=== PATIENT | female | born 1940 | race Caucasian/White ===

== ENCOUNTER 2017-01-04 14:24 | Observation (INO) ==
[2017-01-04 15:40] LABS: Basophils % 0.6 %; Eosinophils # 0.1 K/mcL (0.0-0.6); Hematocrit 40.6 % (35.3-44.9); Immature Granulocytes % 0.2 % (0-4); Lymphocytes # 1.3 K/mcL (0.6-4.6); Lymphocytes % 26.7 %; Mean Corpuscular Hemoglobin 28.6 pg (28.0-33.3); Mean Corpuscular Volume 89.4 fL (83.0-100.0); Monocytes # 0.4 K/mcL (0.0-1.3); Monocytes % 8.7 %; Neutrophils # 2.9 K/mcL (1.6-8.9); Platelet Count 126 K/mcL (140-400); Red Blood Count 4.54 M/mcL (3.82-4.97); Red Cell Distribution Width 12.5 % (11.5-14.5); Segmented Neutrophils % 60.8 %
--- NOTE | 2017-01-04 15:52 | Emergency Department Note ---
Disposition Clinical Impression: Exertional dyspnea Disposition: Admitted As Inpatient Condition: Fair Time of Disposition: 17:34 General Adult HPI - General Chief complaint: ED Shortness of Breath/Dyspnea Stated complaint: JAMAL Time Seen by Provider: 01/04/17 15:13 Source: patient Mode of arrival: wheelchair Limitations: no limitations Nursing Notes Reviewed: Yes Vital Signs Reviewed: Yes - History of Present Illness HPI Narrative: Patient is a 76-year-old female with a past medical history of 2 cardiac stents , pacemaker, and hypertension that presents with exertional dyspnea and orthopnea that started at 2 AM this morning. She also complains of lower extremity swelling bilaterally. She denies an fever, chills, nausea, or diaphoresis, chest pain, abdominal pain, pre-syncopal episodes or calf tenderness. 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 Pain Scale: 0 Treatments Prior to Arrival: Aspirin - Related Data Home Medications Medication Instructions Recorded Confirmed Aspirin 81 mg PO DAILY 01/04/17 01/04/17 Atorvastatin [Lipitor] 40 mg PO HS 01/04/17 01/04/17 Gabapentin [Neurontin] 600 mg PO HS 01/04/17 01/04/17 HYDROcodone/Acet 5/325 mg [[place] 1 tab PO Q6H PRN 01/04/17 01/04/17 5-325 mg] Isosorbide MONOnitrate (24 HR) 90 mg PO DAILY 01/04/17 01/04/17 [Imdur] Levothyroxine Sodium [Levoxyl] 25 mcg PO 0630 01/04/17 01/04/17 Meloxicam [Meloxicam] 7.5 mg PO BID 01/04/17 01/04/17 Metoprolol [Lopressor] 12.5 mg PO BID 01/04/17 01/04/17 Oxybutynin Chloride [Ditropan Xl] 10 mg PO DAILY 01/04/17 01/04/17 Temazepam [Restoril] 30 mg PO HS 01/04/17 01/04/17 amLODIPine [Norvasc] 5 mg PO DAILY 01/04/17 01/04/17 raNITIdine HCl [Ranitidine HCl] 150 mg PO BID 01/04/17 01/04/17 Allergies Allergy/AdvReac Type Severity Reaction Status Date / Time No Known Allergies Allergy Verified 01/04/17 19:11 All systems ED: reviewed and negative except as stated. Constitutional: Reports: weakness. Denies: fever, chills Cardiovascular: Reports: dyspnea on exertion, orthopnea. Denies: chest pain, palpitations Respiratory: Denies: cough, wheezes, hemoptysis, stridor Gastrointestinal: Denies: abdominal pain, nausea, vomiting Musculoskeletal: Denies: back pain, neck pain Neurological: Denies: headache, numbness, paresthesias, confusion, abnormal gait Past Medical History - Past Medical History Medical history: Reports: coronary artery disease, hypertension, other Psychiatric history: Reports: no psych history - Social History Smoking Status: Former smoker Smokeless Tobacco Status: No Alcohol use: Reports: none Drug use: Reports: none Physical Exam Patient is sitting up in bed smiling and pleasant. She speaks in full sentences. She is at 99% on 2 L. No acute distress however when she is laid completely flat she does exhibit signs of difficulty in breathing. - General Limitations: no limitations General appearance: alert, in no apparent distress - Head Head exam: atraumatic, normocephalic, normal inspection - Eye Eye exam: Present: normal appearance, PERRL, EOMI - ENT ENT exam: normal exam, normal oropharynx, mucous membranes moist - Neck Neck exam: Present: normal inspection, full ROM. Absent: tenderness - Chest Chest inspection: Present: normal inspection, symmetric chest wall rise. Absent : tenderness - Respiratory Respiratory exam: Present: normal lung sounds bilaterally. Absent: respiratory distress, wheezes, stridor - Cardiovascular Cardiovascular exam: Present: regular rate, normal rhythm, normal heart sounds - Abdominal Exam Abdominal exam: Present: soft, Non-Tender, normal bowel sounds - Expanded Lower Extremity Exam Lower leg exam: Present: full ROM, other (1+ pitting edema bilaterally). Absent : tenderness Neurovascular/Tendon exam: Present: normal capillary refill. Absent: pulse deficit, motor deficit, sensory deficit, extremity cold to touch, pallor Gait: not tested/not observed - Back Exam Back exam: Present: normal inspection, full ROM. Absent: tenderness - Neurological Exam Neurological exam: Present: alert, oriented X3 - Psychiatric Psychiatric exam: Present: normal affect, normal mood - Skin Skin exam: Present: warm, dry, intact, normal color Course Course Narrative: Patient is a 76-year-old female with past medical history of 2 cardiac stents and a pacemaker that presents with exertional dyspnea and orthopnea. We will order labs and imaging to rule out ACS. We will check a d-dimer due to the patient's complaint of sudden onset difficulty in breathing. The plan will be to admit the patient to the hospital for further ACS rule out. - Reevaluation(s) Reevaluation #1: Discussed with patient that due to her elevated d-dimer and no other obvious finding for shortness of breath and believe it is reasonable to do a CTA of her chest to rule out a PE. The patient agrees with the plan. Time: 16:31 Reevaluation #2: I spoke with nurse practitioner Lottie. She agrees to accept the patient to the hospital for ACS rule out. Time: 17:34 Vital Signs Temperature 97.8 F 01/04/17 14:29 Pulse Rate 65 01/04/17 14:29 Respiratory Rate 18 01/04/17 14:29 Blood Pressure 138/73 01/04/17 14:29 O2 Sat by Pulse Oximetry 99 01/04/17 14:29 Temperature 98.8 F 01/04/17 23:21 Pulse Rate 70 01/04/17 23:21 Respiratory Rate 16 01/04/17 23:21 Blood Pressure 104/59 01/04/17 23:21 O2 Sat by Pulse Oximetry 95 01/04/17 23:21 Oxygen Delivery Oxygen Delivery Room Air Medical Decision Making - Medical Records Medical records reviewed: Yes I reviewed the patient's medical records. - Lab Data Lab results reviewed: Yes I reviewed the patient's lab results. Result diagrams: 01/04/17 15:31 01/04/17 15:31 Lab Results 01/04/17 01/04/17 01/04/17 Range/Units 15:31 15:31 15:31 WBC 4.7 (4.3-11.1) K/mcL RBC 4.54 (3.82-4.97) M/mcL Hgb 13.0 (11.5-15.4) g/dL Hct 40.6 (35.3-44.9) % MCV 89.4 (83.0-100.0) fL MCH 28.6 (28.0-33.3) pg MCHC 32.0 (31.6-35.5) g/dL RDW 12.5 (11.5-14.5) % Plt Count 126 L (140-400) K/mcL MPV 9.0 L (9.4-12.4) fL Immature Gran % 0.2 (0-4) % Seg Neutrophils % 60.8 % Lymphocytes % 26.7 % Monocytes % 8.7 % Eosinophils % 3.0 % Basophils % 0.6 % Neutrophils # 2.9 (1.6-8.9) K/mcL Lymphocytes # 1.3 (0.6-4.6) K/mcL Monocytes # 0.4 (0.0-1.3) K/mcL Eosinophils # 0.1 (0.0-0.6) K/mcL Basophils # 0.0 (0.0-0.2) K/mcL D-Dimer (0-500) ng/mLFEU Sodium 140 (136-145) mEq/L Potassium 4.0 (3.5-4.5) mEq/L Chloride 106 (98-109) mEq/L Carbon Dioxide 29 (19-29) mEq/L BUN 20 (7-20) mg/dL Creatinine 0.85 (0.57-1.11) mg/dL Est GFR ( Amer) > 60 (> 60) Est GFR (Non-Af Amer) > 60 (> 60) BUN/Creatinine Ratio 24 (6-26) Glucose 86 (70-99) mg/dL Calculated Osmolality 292 (280-300) Lactic Acid 1.0 (0.5-2.2) mmol/L Calcium 9.9 (8.6-10.8) mg/dL Troponin I (0-0.03) ng/mL B-Natriuretic Peptide (0-100) pg/mL 01/04/17 01/04/17 01/04/17 Range/Units 15:31 15:31 15:31 WBC (4.3-11.1) K/mcL RBC (3.82-4.97) M/mcL Hgb (11.5-15.4) g/dL Hct (35.3-44.9) % MCV (83.0-100.0) fL MCH (28.0-33.3) pg MCHC (31.6-35.5) g/dL RDW (11.5-14.5) % Plt Count (140-400) K/mcL MPV (9.4-12.4) fL Immature Gran % (0-4) % Seg Neutrophils % % Lymphocytes % % Monocytes % % Eosinophils % % Basophils % % Neutrophils # (1.6-8.9) K/mcL Lymphocytes # (0.6-4.6) K/mcL Monocytes # (0.0-1.3) K/mcL Eosinophils # (0.0-0.6) K/mcL Basophils # (0.0-0.2) K/mcL D-Dimer 784 H (0-500) ng/mLFEU Sodium (136-145) mEq/L Potassium (3.5-4.5) mEq/L Chloride (98-109) mEq/L Carbon Dioxide (19-29) mEq/L BUN (7-20) mg/dL Creatinine (0.57-1.11) mg/dL Est GFR ( Amer) (> 60) Est GFR (Non-Af Amer) (> 60) BUN/Creatinine Ratio (6-26) Glucose (70-99) mg/dL Calculated Osmolality (280-300) Lactic Acid (0.5-2.2) mmol/L Calcium (8.6-10.8) mg/dL Troponin I 0.00 (0-0.03) ng/mL B-Natriuretic Peptide 499 H (0-100) pg/mL - Radiology Data Radiology results reviewed: Yes I reviewed the patient's radiology results. Chest X-Ray 01/04/17 14:33 IMPRESSION: Stable chest with no acute cardiopulmonary process. D/ / Pedro Quintana MD / Pedro Quintana MD Interpreting Provider: Pedro Quintana MD Chest CTA 01/04/17 16:04 IMPRESSION: No evidence of pulmonary embolism or acute pulmonary abnormality. D/ / Stanford Cabrera MD / Stanford Cabrera MD Interpreting Provider: Stanford Cabrera MD - EKG Data EKG #1 EKG attestation: Yes I reviewed and interpreted this EKG. EKG results narrative: This EKG was interpreted by me. Performed at 14:52. There is a ventricular paced rhythm. Attestation Statement - Attestation Attestation: I examined this patient and my medical decision-making was reviewed with the Resident Physician. I agree with the documented findings, disposition and treatment plan as described except to the extent set forth below. I agree with the resident's plan of care. In summary this is a female patient with concerning findings of dyspnea which are potentially cardiac in etiology. She does not a pacemaker. She is nearing the life expectancy of her pacemaker. She has exertionally mediated dyspnea as well as orthopnea. Her BNP was found to be mildly elevated. She does have some lower extremity swelling. Her d- dimer was found to be elevated. She underwent CT angiography of the chest to rule out pulmonary M was not. This shows no evidence of pulmonary embolism. Plan to admit for serial cardiac biomarkers trending as well as cardiac consultation for evaluation of both pacemaker and possible anginal equivalence exertional dyspnea.
[2017-01-04 15:54] LABS: BUN/Creatinine Ratio 24 (6-26); Blood Urea Nitrogen 20 mg/dL (7-20); Calcium 9.9 mg/dL (8.6-10.8); Carbon Dioxide 29 mEq/L (19-29); Chloride 106 mEq/L (98-109); Glucose 86 mg/dL (70-99); Osmolality,Calculated 292 (280-300); Sodium 140 mEq/L (136-145); eGFR For African Americans > 60 (> 60); eGFR For Non-African Americans > 60 (> 60)
[2017-01-04] MEDS ORDERED: Naloxone 0.4 MG/ML INJ IVP PRN (19:38)
--- NOTE | 2017-01-04 19:50 | Internal Med History&Physical ---
<Barbara Roberts - Last Filed: 01/04/17 21:52> Date of Encounter: 01/04/17 Time of Encounter: 19:45 Assessment and Plan (1) Exertional dyspnea Current visit: Yes Status: Acute 1the patient began to experience exertional dyspnea as well as orthopnea beginning last night. She was not hypoxic on presentation Last cardiac echo 2014 EF of 60% and mild diastolic dysfunction mildly enlarged left atrium. Chest x-ray is clear CT is negative for any PE also been experiencing lower extremity swelling. Suspect related to-diastolic heart failure-we will obtain cardiac echo 2 monitor intake and output daily weights 3 trend cardiac troponins-patient does have a history of coronary artery disease - suspect dyspnea could be chest pain equivalent- 4 oxygen as needed to maintain SPO2 greater than 92% 5.Lasix 20mg x1 6 NPO after midnight, cardiac stress in am (2) Hypertension Current visit: No Status: Chronic 1 presently stable-we will hold norvasc for now dt lower extremity swelling and systolic around 118- she may not require norvasc - review upon discharge 2low-sodium diet Qualifiers: Hypertension type: essential hypertension Qualified Code(s): I10 - Essential (primary) hypertension (3) Hypothyroid Current visit: No Status: Chronic 1 we will check TSH continue with Synthroid Qualifiers: Hypothyroidism type: unspecified Qualified Code(s): E03.9 - Hypothyroidism , unspecified (4) CAD (coronary artery disease) Current visit: No Status: Chronic 1history of coronary artery disease w PCI 2 stent placements. We will continue with aspirin and statin and beta [place] as well as nitrates 2 we will trend cardiac troponins 3 continuous cardiac monitoring 4 low sodium diet Qualifiers: Coronary Disease-Associated Artery/Lesion type: [place] artery [place] vs. transplanted heart: [place] heart Associated angina: without angina Qualified Code(s): I25.10 - Atherosclerotic heart disease of [place] coronary artery without angina pectoris (5) DVT prophylaxis Current visit: Yes Status: Acute 1 [facility] Internal Medicine - H&P: HPI Chief complaint: sob Admitted From: Emergency Dept Plans for Post Hospital Care: Home History of present illness: Ms. Mendez is a 76 year old female with medical history of coronary artery disease status post PCI 2 cardiac stents tachybradycardia syndrome with pacemaker placement hypertension hyperlipidemia hypothyroidism. Approximately 2 AM this morning patient was experiencing orthopnea she was unable to get comfortable and ended up getting out of bed and sleeping in a chair. Proximal 4 and continued to have some difficulty breathing , she attempted to ambulate which worsened her respiratory state. Her breathing would improve with rest and was exacerbated by lying down and exertion. She denied any chest pain palpitations nausea vomiting diarrhea cough unusual weight loss or weight gain. She has been experiencing lower extremity swelling which he states has been going on for some time. As the day progressed she continued to have exertional shortness of breath. She presented to the ER for evaluation according to ER records and lab work was obtained which was unremarkable except for patient did have a d-dimer of 784 BNP was 499 troponin was 0. Chest x-ray no acute processes CTA was completed which was negative for any PE. EKG showed paced rhythm. Patient has been admitted for further workup and evaluation. Presently patient is not in respiratory distress she has any chest pain this time. Her lung sounds are clear throughout heart sounds are regular S1 and S2 with no rubs clicks murmurs noted. Abdomen soft nontender. She does have pedal edema to lower extremity right more than left. She is hemodynamically stable this time. Reviewed with dr Villarreal who agrees with plan Past Med Surg Social Fam HX - Past Medical History Medical history: arthritis, coronary artery disease, hypertension, other Psychiatric history: no psych history - Past Surgical History Surgical History: pacemaker/AICD, LE stent (s) - Social History Smoking Status: Former smoker Smokeless Tobacco Status: No Alcohol use: none Drug use: none - Family History Father Living Status: Age at : 85 Cause of : Stomach cancer Mother Living Status: Age at : 95 Cause of : Dementia Alzheimer's Internal Medicine - H&P: Meds Aspirin 81 mg PO DAILY 01/04/17 [History] Atorvastatin [Lipitor] 40 mg PO HS 01/04/17 [History] Gabapentin [Neurontin] 600 mg PO HS 01/04/17 [History] HYDROcodone/Acet 5/325 mg [[place] 5-325 mg] 1 tab PO Q6H PRN 01/04/17 [History] Isosorbide MONOnitrate (24 HR) [Imdur] 90 mg PO DAILY 01/04/17 [History] Levothyroxine Sodium [Levoxyl] 25 mcg PO 0630 01/04/17 [History] Meloxicam [Meloxicam] 7.5 mg PO BID 01/04/17 [History] Metoprolol [Lopressor] 12.5 mg PO BID 01/04/17 [History] Oxybutynin Chloride [Ditropan Xl] 10 mg PO DAILY 01/04/17 [History] Temazepam [Restoril] 30 mg PO HS 01/04/17 [History] amLODIPine [Norvasc] 5 mg PO DAILY 01/04/17 [History] raNITIdine HCl [Ranitidine HCl] 150 mg PO BID 01/04/17 [History] Allergies No Known Allergies Allergy (Verified 01/04/17 19:11) All Systems PM: A 10-system review of systems was performed and is negative for pertinent findings except as documented above in the HPI. - Constitutional Constitutional: no chills, no fever(s), no night sweats - EENT Eyes: no change in vision, no discharge, no pain, no photophobia Nose, mouth and throat: no dysphagia, no nasal discharge, no neck pain, no sore throat - Cardiovascular Cardiovascular ROS IM: no chest pain, no diaphoresis, no dyspnea, no lightheadedness, no palpitations, no syncope - Respiratory Respiratory: dyspnea on exertion, no cough, no dyspnea, no wheezing, no excessive phlegm production - Gastrointestinal Gastrointestinal: no abdominal pain, no diarrhea, no hematemesis, no hematochezia, no melena, no nausea, no vomiting - Genitourinary Genitourinary: no change in urinary stream, no dysuria, no flank pain, no hematuria - Musculoskeletal Musculoskeletal ROS IM: no numbness, no tingling - Integumentary Integumentary IM: no rash, no unusual bruising - Neurological Neurological ROS: no confusion, no convulsions, no focal weakness, no numbness, no tingling, no tremor(s) - Hematologic/Lymphatic Hematologic/Lymphatic: no easy bruising - Constitutional Vitals: Temp Pulse Resp BP Pulse Ox 98.3 F 64 16 118/64 96 01/04/17 19:38 01/04/17 19:38 01/04/17 19:38 01/04/17 19:38 01/04/17 19:38 General appearance: Present: A&O X 3, answers questions appropriately - Head Head exam: Present: atraumatic, normocephalic - Eye Eye exam: Present: PERRL, conjuntiva pink, sclera anicteric Pupils: Present: PERRL - Neck Neck exam general surgery: Present: supple, trachea midline. Absent: lymphadenopathy - Respiratory Respiratory exam: Present: CTAB. Absent: accessory muscle use, rales, rhonchi, wheezes - Cardiovascular Cardiovascular exam: Present: RRR, +S1, +S2. Absent: diastolic murmur, gallop, rubs, systolic murmur - GI/Abdominal GI/Abdominal exam: Present: normal bowel sounds, soft, no peritoneal signs. Absent: distended, tenderness - Extremities Exam Extremities exam: Present: pedal edema, warm, radial pulses palpable and symetrical. Absent: calf tenderness, cyanotic - Neurological Exam Neurological exam: Present: CN II-XII intact, oriented X3, no focal deficits. Absent: pronater drift, facial droop, speech deficit - Skin Skin exam: Present: dry, intact Internal Med - H&P Results - Labs CBC & Chem 7: 01/04/17 15:31 01/04/17 15:31 - EKG Data Prior EKG available for review: yes When compared to previous EKG: there is no significant change EKG comments: 01/04/17 19:55 V paced rhythm - Diagnostic Studies Other Images Additional comments: Chest X-Ray 01/04/17 14:33 IMPRESSION: Stable chest with no acute cardiopulmonary process. D/ / Pedro Quintana MD / Pedro Quintana MD Interpreting Provider: Pedro Quintana MD Chest CTA 01/04/17 16:04 IMPRESSION: No evidence of pulmonary embolism or acute pulmonary abnormality. D/ / Stanford Cabrera MD / Stanford Cabrera MD Interpreting Provider: Stanford Cabrera MD <PhilChristinatahir Lara - Last Filed: 01/04/17 22:13> Date of Encounter: 01/04/17 Internal Medicine - H&P: HPI History of present illness: Ms. Mendez is a 76 year old female All Systems PM: A 10-system review of systems was performed and is negative for pertinent findings except as documented above in the HPI. - Constitutional Vitals: Temp Pulse Resp BP Pulse Ox 98.3 F 64 16 118/64 96 01/04/17 19:38 01/04/17 19:38 01/04/17 19:38 01/04/17 19:38 01/04/17 19:38 Internal Med - H&P Results - Labs CBC & Chem 7: 01/04/17 15:31 01/04/17 15:31 Labs: Cardiac Enzymes 01/04/17 Range/Units 20:28 Troponin I 0.01 (0-0.03) ng/mL - Attending Attestation I have personally performed a face to face evaluation on this patient. I have reviewed and agree with the care plan. History and Exam by me shows: Briefly Ms. Leisa Sanford is a 76-year-old female with a history of small cardiac event many years ago approximately in 2011 status post 2 stents, tachybrady syndrome with pacer seeing Dr. Jennings who presents with acute onset shortness of breath since yesterday and was admitted for chest pain equivalent rule out. Investigations in the ER included a CT PE was negative for pneumonia , interstitial edema or PE. Given her cardiac history she was admitted for chest pain rule out evaluation. Of note she has a history of sleep apnea but does not tolerate CPAP. ROS 14 point review of systems reviewed. Pertinent positive or negative as per HPI or otherwise reviewed as negative General - AAO x 3 Psych - Appropriate affect/speech. No agitation Eyes - KIMMY. Eye lids intact. No scleral icterus ENT - Oral mucosa pink, dentition intact. External ear clear/dry/intact. No thyromegaly Lymphatics - No cervical/inguinal lympadenopathy Neuro - No gross peripheral or central neuro deficits with intact CN 2-12 exam Heart - Sinus. RRR. S1 and S2 present. No added HS/murmurs appreciated. No elevated JVD appreciated. No calf swellings/erythema Lung - Adequate air entry b/l, No crackes/wheezes appreciated GI - Soft, non-tender. No hepatosplenomegaly/ascities. BS+ - No CVA/suprapubic tenderness or palpable bladder distension Skin - Intact. No rash/petechiae/ecchymosis. Warm extremities MSK - Joints with normal ROM. No joint swellings EKG with paced rhythm Assessment and plan Stress test in the morning Echo Trend troponin Has chronic lower extremity edema right more than left pending ultrasound Doppler evaluation. Low suspicion of DVT
[2017-01-04] MEDS ORDERED: Temazepam 15 MG CAPSULE PO SCH (21:00)
[2017-01-04] MEDS ORDERED: Gabapentin 300 MG CAPSULE PO SCH (21:00)
[2017-01-04] MEDS ORDERED: Ondansetron 4 MG/2 ML VIAL IVP PRN (21:10)
[2017-01-04] MEDS ORDERED: Furosemide 20 MG/2 ML VIAL IVP ONE (21:41)
[2017-01-04] MEDS: Famotidine 20 MG TABLET PO SCH (22:02)
[2017-01-05 04:42] LABS: Basophils % 0.5 %; Eosinophils # 0.1 K/mcL (0.0-0.6); Eosinophils % 3.2 %; Hematocrit 39.4 % (35.3-44.9); Hemoglobin 12.8 g/dL (11.5-15.4); Immature Granulocytes % 0.2 % (0-4); Lymphocytes # 1.3 K/mcL (0.6-4.6); Lymphocytes % 29.3 %; Mean Corpuscular HGB Conc 32.5 g/dL (31.6-35.5); Mean Corpuscular Hemoglobin 29.1 pg (28.0-33.3); Mean Corpuscular Volume 89.5 fL (83.0-100.0); Mean Platelet Volume 10.1 fL (9.4-12.4); Monocytes # 0.4 K/mcL (0.0-1.3); Monocytes % 9.9 %; Neutrophils # 2.5 K/mcL (1.6-8.9); Platelet Count 135 K/mcL (140-400); Red Cell Distribution Width 12.7 % (11.5-14.5); Segmented Neutrophils % 56.9 %
[2017-01-05 05:06] LABS: BUN/Creatinine Ratio 18 (6-26); Blood Urea Nitrogen 15 mg/dL (7-20); Calcium 9.9 mg/dL (8.6-10.8); Carbon Dioxide 30 mEq/L (19-29); Chloride 107 mEq/L (98-109); Chol/HDL Ratio 3.4 (0-4.9); Cholesterol 129 mg/dL (< 200); Glucose 92 mg/dL (70-99); HDL Cholesterol 38 mg/dL (40-59); LDL Cholesterol,Calculated 69 mg/dL (0-99); Osmolality,Calculated 298 (280-300); Potassium 3.7 mEq/L (3.5-4.5); Sodium 144 mEq/L (136-145); Triglycerides 108 mg/dL (< 150); eGFR For African Americans > 60 (> 60); eGFR For Non-African Americans > 60 (> 60)
[2017-01-05] MEDS ORDERED: Levothyroxine 25 MCG TABLET PO SCH (06:30)
[2017-01-05] MEDS ORDERED: Regadenoson 0.4 MG/5 ML SYRINGE IVP ONE (06:37)
[2017-01-05] MEDS ORDERED: *HR* Enoxaparin 40 MG/0.4 ML SYRINGE SQ SCH (07:00)
[2017-01-05] MEDS ORDERED: Aspirin 81 MG TAB.CHEW PO SCH (09:00)
[2017-01-05] MEDS ORDERED: amLODIPine 5 MG TABLET PO SCH (09:00)
[2017-01-05] MEDS ORDERED: Isosorbide MONOnitrate (24 HR) 30 MG TAB.ER.24H PO SCH (09:00)
--- NOTE | 2017-01-05 11:09 | Cardiology Consult Note ---
Date of Encounter: 01/05/17 Time of Encounter: 11:06 Assessment and Plan (1) Elevated troponin Current Visit: Yes Status: Acute Flat, adynamic troponin elevation in setting of dyspnea. I suspect mild troponin increase related to dyspnea/DHF, but significant CAD cannot be excluded. I recommended an ischemic evaluation (stress test), but she declines. She states she would like to go home and followup as outpatient. Currently, she is symptom free - she states back to baseline. Recommend continue aspirin/statin/bb therapy. Followup scheduled with Dr. Jennings. All questions answered. Patient understands risks of leaving without ischemic evaluation. (2) Exertional dyspnea Current Visit: Yes Status: Acute I suspect dyspnea related to diastolic HF. Patient admits to significant exogenous sodium intake. Although no fluid reported on CT, CXR - symptoms resolved with diuresis. She denies chest pain. Recommend low sodium diet. If recurrent symptoms despite low sodium diet, consider low dose maintenance lasix. (3) CAD (coronary artery disease) Current Visit: No Status: Chronic Continue aspirin/statin/BB therapy. Risk factor modification. Qualifiers: Coronary Disease-Associated Artery/Lesion type: [place] artery [place] vs. transplanted heart: [place] heart Associated angina: without angina Qualified Code(s): I25.10 - Atherosclerotic heart disease of [place] coronary artery without angina pectoris Discussion w patient/family: The assessment and plan as outlined above was discussed with the patient and/or family members who expressed understanding and agreement. All questions were answered. Thank you for involving us in the care of your patient. Please call with any questions. History of Present Illness Consult date: 01/05/17 Requesting physician: Dwayne Villarreal Consult reason: Dyspnea Chief complaint: Dyspnea History of present illness: Ms. Mendez is a 76 year old female with a history of CAD, prior PCI. Known history of a prior pacemaker. Sudden onset of dyspnea this AM - describes worse with exertion, orthopnea. She denies chest pain. CT negative for PE, no acute process. Reports currently back to baseline; anxious to go home. Mild troponin elevation noted; flat adynamic. Adds salt to many of foods. Past Med Surg Social Fam HX - Past Medical History Medical history: coronary artery disease, hypertension, other Psychiatric history: no psych history - Past Surgical History Surgical History: pacemaker/AICD, LE stent (s) - Social History Smoking Status: Former smoker Smokeless Tobacco Status: No Alcohol use: none Drug use: none - Family History Father Living Status: Age at : 85 Cause of : Stomach cancer Mother Living Status: Age at : 95 Cause of : Dementia Alzheimer's Medications and Allergies Aspirin 81 mg PO DAILY 01/04/17 [History] Atorvastatin [Lipitor] 40 mg PO HS 01/04/17 [History] Gabapentin [Neurontin] 600 mg PO HS 01/04/17 [History] HYDROcodone/Acet 5/325 mg [[place] 5-325 mg] 1 tab PO Q6H PRN 01/04/17 [History] Isosorbide MONOnitrate (24 HR) [Imdur] 90 mg PO DAILY 01/04/17 [History] Levothyroxine Sodium [Levoxyl] 25 mcg PO 0630 01/04/17 [History] Meloxicam [Meloxicam] 7.5 mg PO BID 01/04/17 [History] Metoprolol [Lopressor] 12.5 mg PO BID 01/04/17 [History] Oxybutynin Chloride [Ditropan Xl] 10 mg PO DAILY 01/04/17 [History] Temazepam [Restoril] 30 mg PO HS 01/04/17 [History] amLODIPine [Norvasc] 5 mg PO DAILY 01/04/17 [History] raNITIdine HCl [Ranitidine HCl] 150 mg PO BID 01/04/17 [History] Allergies No Known Allergies Allergy (Verified 01/04/17 19:11) All Systems Review: A 10-system review of systems was performed and is negative for pertinent findings except as documented above in the HPI. - Cardiovascular Cardiovascular: as per HPI, dyspnea at rest, dyspnea on exertion, orthopnea Physical Examination General: Conversant, No Apparent Distress HEENT: Atraumatic, Normocephaly, Mucus Membranes Moist Neck: No JVD, Normal carotid pulses Cardiac: Reg Rate and Rhythm, Normal S1 and S2, No Murmur Lungs: Normal Breath Sounds, No Wheeze, Rales, Rhonchi Neuro: Alert and responsive, No focal deficits noted Abdomen: Soft, Non-Tender, Other (Obese) Skin: No rashes noted on visualized skin Musculoskeletal: No Chest Wall Tenderness Extremities: No Clubbing, No Cyanosis, Other (Mild edema) Results 01/05/17 03:25 01/05/17 03:25 Lab Results 01/04/17 01/04/17 01/05/17 20:28 20:28 03:25 WBC Hgb Hct Plt Count Sodium Potassium Chloride Carbon Dioxide BUN Creatinine Glucose Calcium Magnesium Troponin I 0.01 0.08 H* TSH 2.429 01/05/17 01/05/17 01/05/17 03:25 03:25 08:53 WBC 4.3 Hgb 12.8 Hct 39.4 Plt Count 135 L Sodium 144 Potassium 3.7 Chloride 107 Carbon Dioxide 30 H BUN 15 Creatinine 0.83 Glucose 92 Calcium 9.9 Magnesium 2.0 Troponin I 0.06 H* TSH - Imaging and Cardiology Echo: report reviewed Consult Discharge Plan - Plan Referrals: Gemma Willson, OUTBOUND SUPERVISOR [Primary Care Provider] -
[2017-01-05] MEDS: Famotidine 20 MG TABLET PO SCH (11:49)
--- NOTE | 2017-01-05 15:21 | Discharge Summary ---
Date of Encounter: 01/05/17 Time of Encounter: 14:00 - Discharge Diagnosis (1) Exertional dyspnea Priority: Primary Status: Resolved Comments: Unclear causation. Patient denied symptoms after admission. Suspect possible diastolic heart failure but do not have enough information for her to make this formal diagnosis. Recommended close outpatient follow-up with primary care provider and cardiology. (2) Elevated troponin Priority: Primary Status: Ruled-out Comments: Trended back down, adynamic and flat. Per cardiology, likely secondary to demand ischemia in the setting of dyspnea. Low suspicion for ACS. (3) Hypertension Priority: Secondary Status: Chronic Comments: Controlled, Norvasc held due to history of lower extremity edema. We will hold upon discharge and defer to her primary care team Qualifiers: Hypertension type: essential hypertension Qualified Code(s): I10 - Essential (primary) hypertension (4) Hypothyroid Priority: Secondary Status: Chronic Comments: TSH normal Qualifiers: Hypothyroidism type: unspecified Qualified Code(s): E03.9 - Hypothyroidism , unspecified (5) CAD (coronary artery disease) Priority: Secondary Status: Chronic Qualifiers: Coronary Disease-Associated Artery/Lesion type: [place] artery [place] vs. transplanted heart: [place] heart Associated angina: without angina Qualified Code(s): I25.10 - Atherosclerotic heart disease of [place] coronary artery without angina pectoris (6) DVT prophylaxis Priority: Primary Status: Acute Comments: Subcutaneous Lovenox while admitted (7) Morbid obesity with BMI of 40.0-44.9, adult Priority: Secondary Status: Chronic - Discharge Medications Home Medications: Aspirin 81 mg PO DAILY 01/04/17 [History] Atorvastatin [Lipitor] 40 mg PO HS 01/04/17 [History] Gabapentin [Neurontin] 600 mg PO HS 01/04/17 [History] HYDROcodone/Acet 5/325 mg [[place] 5-325 mg] 1 tab PO Q6H PRN 01/04/17 [History] Isosorbide MONOnitrate (24 HR) [Imdur] 90 mg PO DAILY 01/04/17 [History] Levothyroxine Sodium [Levoxyl] 25 mcg PO 0630 01/04/17 [History] Meloxicam 7.5 mg PO BID 01/04/17 [History] Metoprolol [Lopressor] 12.5 mg PO BID 01/04/17 [History] Oxybutynin Chloride [Ditropan Xl] 10 mg PO DAILY 01/04/17 [History] Temazepam [Restoril] 30 mg PO HS 01/04/17 [History] raNITIdine HCl [Ranitidine HCl] 150 mg PO BID 01/04/17 [History] Allergies/Adverse Reactions: Allergies No Known Allergies Allergy (Verified 01/04/17 19:11) Procedures/tests Complete & Pending: Procedures Performed prior 72 hours Category Date Time Status EV echocardiogram Routine Y 01/05/17 19:41 Completed Date of admission: 01/04/17 17:47 Primary care physician: Gemma Willson CNP Consults: 01/05/17 08:47 Consult to Cardiology [CONS] Routine Comment: Consulting Provider: Cardiology Devorah Reason for Consult: pt here for sob, orthopnea. had stress ordered this am but trop now 0.08. Hx cad/2stents. tachy-jing with PPM. Time Notified: 08:47 Call Completed: Yes Discharging clinician: Ruthy Wan Anticipated date of discharge: 01/05/17 - Patient Status Disposition: Home, Self-Care Condition: Fair Functional capacity at discharge: independent ambulation Overall status at discharge: patient is back to baseline - Discharge Instructions Follow Up With: Gemma Willson CNP [Primary Care Provider] - Grabiel Jennings MD [Partnered Physician] - Additional Instructions: Follow-up with primary care provider within one to 2 weeks, follow-up with heel sewer within 1-2 weeks - Diet and Activity Activity: increase activity as tolerated Diet: low fat, low cholesterol, low salt diet Hospital course: Ms. Mendez is a 76 year old female with past medical history of CAD status post stent 2, tachybradycardia syndrome status post pacemaker, hypertension, hyperlipidemia, hypothyroidism. On the morning of presentation, patient experienced orthopnea and she was unable to get comfortable and ended up getting out of bed and sitting in a chair. She continued to have difficulty breathing after waking up and when she attempted to ambulate, her difficulty breathing increased. She states her difficulty breathing when improved with rest and was exacerbated by lying flat and with exertion. Patient denied any chest pain, palpitations, nausea vomiting diarrhea, cough, or weight changes. Patient has been experiencing lower extremity edema for quite some time. Workup in the emergency department revealing slightly elevated d-dimer so CTA was obtained which ruled out a PE. Chest x-ray negative. Patient was admitted to the hospitalist service for further evaluation and management. Initial troponin negative, next 2 troponins borderline high but adynamic and flat. Second troponin 0.08 then 0.06. Patient denied chest pain or shortness of breath throughout this admission. She had an echocardiogram which revealed an ejection fraction of 65% with mild MR, mild TR, mild pulmonary hypertension, but with indeterminate diastolic function. Cardiology was brought on board and recommended a stress test but the patient refused stating she would have a stress test done on an outpatient basis if indicated. Patient stating that her symptoms had resolved and she wanted to go home. Due to her prior history of lower extremity edema without official diagnosis of diastolic heart failure, her amlodipine was held during this admission was discontinued upon discharge as a possible contributing factor. Not enough information at this time for formal diagnosis of diastolic heart failure, will defer to primary care team and heel sewer. No diuretics were indicated upon discharge. We will trial the patient with low sodium and fluid restricted diet. Regarding risk factor modification, patient is on aspirin, statin, beta paolo with good control of her blood pressure. Spoke to her regarding dietary changes and she readily admitted that she puts salt on everything she eats. She was discharged home in stable condition with close outpatient follow-up recommended. ITS Impressions Chest X-Ray 01/04/17 14:33 IMPRESSION: Stable chest with no acute cardiopulmonary process. D/ / Pedro Quintana MD / Pedro Quintana MD Interpreting Provider: Pedro Quintana MD Chest CTA 01/04/17 16:04 IMPRESSION: No evidence of pulmonary embolism or acute pulmonary abnormality. D/ / Stanford Cabrera MD / Stanford Cabrera MD Interpreting Provider: Stanford Cabrera MD Echocardiogram impressions: Normal LV systolic function, LVEF 65%. Normal rectal ventricular size and function. A device lead was visualized in the right atrium and right ventricle. Mild-moderately dilated left atrium. Mildly dilated right atrium. Mild mitral regurgitation. Mild tricuspid regurgitation. Mild pulmonary hypertension. Estimated RVSP is 36 mmHg. Indeterminate diastolic function. - Time Spent with Patient Total time spent providing and/or coordinating discharge services: - Constitutional Vitals: Temp Pulse Resp BP Pulse Ox 98.8 F 79 18 108/69 94 01/05/17 11:57 01/05/17 11:57 01/05/17 11:57 01/05/17 11:57 01/05/17 11:57 General appearance: Present: A&O X 3, morbidly obese, pleasant, no acute distress, answers questions appropriately - Head Head exam: Present: atraumatic, normocephalic - Eye Eye exam: Present: PERRL, conjuntiva pink, sclera anicteric Pupils: Present: PERRL - Neck Neck exam general surgery: Present: supple, trachea midline. Absent: lymphadenopathy - Respiratory Respiratory exam: Present: CTAB. Absent: accessory muscle use, rales, respiratory distress, rhonchi, wheezes - Cardiovascular Cardiovascular exam: Present: RRR, +S1, +S2. Absent: diastolic murmur, gallop, rubs, systolic murmur - GI/Abdominal GI/Abdominal exam: Present: normal bowel sounds, soft, no peritoneal signs. Absent: distended, tenderness - Extremities Exam Extremities exam: Present: pedal edema (1-2+ pitting- patient stating this is her baseline), warm, radial pulses palpable and symetrical. Absent: calf tenderness, cyanotic - Neurological Exam Neurological exam: Present: alert, CN II-XII intact, normal gait, oriented X3, no focal deficits, strengths equal and symetr throughout. Absent: pronater drift, facial droop, speech deficit - Skin Skin exam: Present: dry, intact, normal color, warm
[2017-01-05 15:27] VITALS: BP 110/70
--- NOTE | 2017-01-05 16:01 | Electrocardiograph Report ---
[place] [id number] Test Date: 2017-01-04 Pat Name: Leisa Mendez Department: 102 Room: 3B Gender: F Parquetry Layer: : 1940 Requested By: Alex Momin Order Number: [id number] Reading MD: Alisa Ruiz Measurements Intervals [place] Rate: 65 P: FL: 0 QRS: -89 QRSD: 158 T: 59 QT: 454 QTc: 466 Interpretive Statements ELECTRONIC VENTRICULAR PACEMAKER ABNORMAL RHYTHM ECG Electronically Signed On 01-05-2017 15:59:21 EDT by Alisa Ruiz
== END 2017-01-05 16:30 | disposition home or self-care (01) ==
LOC: EMEROO 14:24 → 3BNU 14:24
PROVIDERS: ADMIT Nurse Practitioner Family; ATTEND Nurse Practitioner Family

== ENCOUNTER 2017-02-13 12:08 | Observation (INO) ==
[2017-02-13 13:29] LABS: Basophils % 0.8 %; Eosinophils # 0.1 K/mcL (0.0-0.6); Hematocrit 39.6 % (35.3-44.9); Hemoglobin 12.6 g/dL (11.5-15.4); Immature Granulocytes % 0.3 % (0-4); Lymphocytes # 0.7 K/mcL (0.6-4.6); Lymphocytes % 17.9 %; Mean Corpuscular HGB Conc 31.8 g/dL (31.6-35.5); Mean Corpuscular Hemoglobin 28.8 pg (28.0-33.3); Mean Corpuscular Volume 90.6 fL (83.0-100.0); Mean Platelet Volume 9.5 fL (9.4-12.4); Monocytes # 0.3 K/mcL (0.0-1.3); Monocytes % 7.3 %; Neutrophils # 2.8 K/mcL (1.6-8.9); Platelet Count 141 K/mcL (140-400); Red Blood Count 4.37 M/mcL (3.82-4.97); Red Cell Distribution Width 13.3 % (11.5-14.5); Segmented Neutrophils % 71.7 %
[2017-02-13 13:41] LABS: BUN/Creatinine Ratio 15 (6-26); Blood Urea Nitrogen 14 mg/dL (7-20); Calcium 10.3 mg/dL (8.6-10.8); Carbon Dioxide 32 mEq/L (19-29); Chloride 103 mEq/L (98-109); Glucose 108 mg/dL (70-99); Osmolality,Calculated 295 (280-300); Potassium 4.2 mEq/L (3.5-4.5); Sodium 142 mEq/L (136-145); eGFR For African Americans > 60 (> 60); eGFR For Non-African Americans 59 (> 60)
--- NOTE | 2017-02-13 15:02 | Emergency Department Note ---
Disposition Clinical Impression: Chest pain Qualifiers: Chest pain type: unspecified Qualified Code(s): R07.9 - Chest pain, unspecified Disposition: Admitted As Inpatient Condition: Good General Adult HPI - General Chief complaint: ED Shortness of Breath/Dyspnea Stated complaint: JAMAL/Chest pressure,nausea Time Seen by Provider: 02/13/17 12:31 Source: patient Limitations: no limitations Nursing Notes Reviewed: Yes Vital Signs Reviewed: Yes - History of Present Illness HPI Narrative: This is a 76-year-old female presents with concern for dyspnea on exertion. She is at the end of her life span with her pacemaker. She is scheduled to have her replace with Dr. Ruiz. Presents today with concern for weakness as well as exertionally mediated dyspnea. She does know she is in atrial flutter. She has findings of paced rhythm with atrial flutter on arrival. She is on anticoagulation. Pain Scale: 8 - Related Data Home Medications Medication Instructions Recorded Confirmed Aspirin 81 mg PO DAILY 01/04/17 02/13/17 Atorvastatin [Lipitor] 40 mg PO HS 01/04/17 02/13/17 Gabapentin [Neurontin] 600 mg PO HS 01/04/17 02/13/17 HYDROcodone/Acet 5/325 mg [[place] 2 tab PO TID PRN 01/04/17 02/13/17 5-325 mg] Isosorbide MONOnitrate (24 HR) 90 mg PO DAILY 01/04/17 02/13/17 [Imdur] Levothyroxine Sodium [Levoxyl] 25 mcg PO 0630 01/04/17 02/13/17 Meloxicam 7.5 mg PO BID 01/04/17 02/13/17 Oxybutynin Chloride [Ditropan Xl] 10 mg PO Q24H 01/04/17 02/14/17 Temazepam [Restoril] 30 mg PO HS 01/04/17 02/13/17 Apixaban [Eliquis] 5 mg PO BID 02/13/17 02/13/17 Furosemide [Lasix] 20 mg PO DAILY PRN 02/13/17 02/13/17 Lisinopril [Zestril] 10 mg PO DAILY 02/13/17 02/13/17 Pantoprazole Sodium [Protonix] 40 mg PO DAILY 02/13/17 02/13/17 amLODIPine [Norvasc] 5 mg PO DAILY 02/13/17 02/13/17 Allergies Allergy/AdvReac Type Severity Reaction Status Date / Time No Known Allergies Allergy Verified 01/04/17 19:11 All systems ED: reviewed and negative except as stated. Past Medical History - Past Medical History Medical history: Reports: atrial fibrillation, coronary artery disease, hypertension, other Surgical history: Reports: pacemaker/AICD, LE stent (s) Psychiatric history: Reports: no psych history - Social History Smoking Status: Former smoker Smokeless Tobacco Status: No Alcohol use: Reports: none Drug use: Reports: none Physical Exam - General Limitations: no limitations General appearance: alert - Head Head exam: atraumatic - Eye Eye exam: Present: normal appearance - ENT ENT exam: normal exam - Neck Neck exam: Present: normal inspection - Chest Chest inspection: Present: normal inspection - Respiratory Respiratory exam: Present: normal lung sounds bilaterally - Cardiovascular Cardiovascular exam: Present: normal rhythm, irregular rhythm - Abdominal Exam Abdominal exam: Present: soft, Non-Tender - Extremities Exam Extremities exam: Present: normal inspection, full ROM - Expanded Lower Extremity Exam Hip/Pelvis exam: Present: normal inspection, full ROM Foot/toe exam: Present: normal inspection, full ROM Neurovascular/Tendon exam: Present: normal capillary refill. Absent: pulse deficit Gait: observed and normal, not tested/not observed - Back Exam Back exam: Present: normal inspection, full ROM - Neurological Exam Neurological exam: Present: alert, oriented X3, CN II-XII intact - Psychiatric Psychiatric exam: Present: normal affect, normal mood - Skin Skin exam: Present: warm, dry Course Vital Signs Temperature 97.9 F 02/13/17 12:21 Pulse Rate 68 02/13/17 12:21 Respiratory Rate 18 02/13/17 12:21 Blood Pressure 134/87 02/13/17 12:21 O2 Sat by Pulse Oximetry 97 02/13/17 12:21 Temperature 97.8 F 02/15/17 13:40 Pulse Rate 65 02/15/17 13:40 Respiratory Rate 14 02/15/17 13:40 Blood Pressure 110/57 02/15/17 13:40 O2 Sat by Pulse Oximetry 95 02/15/17 13:40 Oxygen Delivery Oxygen Delivery Room Air Medical Decision Making - MDM Narrative Medical decision making narrative: 76-year-old female with history of known atrial flutter. Currently in atrial flutter with a paced rhythm. Cardiac biomarkers are checked and were negative. I did interrogate her pacemaker and there is concern for need for placement as well as possible lost av synch. Plan to admit for cardiology consultation. - Medical Records Medical records reviewed: Yes I reviewed the patient's medical records. - Lab Data Lab results reviewed: Yes I reviewed the patient's lab results. Result diagrams: 02/15/17 04:54 02/15/17 04:54 Lab Results 02/13/17 02/13/17 02/13/17 Range/Units 13:17 13:17 13:17 WBC 4.0 L (4.3-11.1) K/mcL RBC 4.37 (3.82-4.97) M/mcL Hgb 12.6 (11.5-15.4) g/dL Hct 39.6 (35.3-44.9) % MCV 90.6 (83.0-100.0) fL MCH 28.8 (28.0-33.3) pg MCHC 31.8 (31.6-35.5) g/dL RDW 13.3 (11.5-14.5) % Plt Count 141 (140-400) K/mcL MPV 9.5 (9.4-12.4) fL Immature Gran % 0.3 (0-4) % Seg Neutrophils % 71.7 % Lymphocytes % 17.9 % Monocytes % 7.3 % Eosinophils % 2.0 % Basophils % 0.8 % Neutrophils # 2.8 (1.6-8.9) K/mcL Lymphocytes # 0.7 (0.6-4.6) K/mcL Monocytes # 0.3 (0.0-1.3) K/mcL Eosinophils # 0.1 (0.0-0.6) K/mcL Basophils # 0.0 (0.0-0.2) K/mcL Sodium 142 (136-145) mEq/L Potassium 4.2 (3.5-4.5) mEq/L Chloride 103 (98-109) mEq/L Carbon Dioxide 32 H (19-29) mEq/L BUN 14 (7-20) mg/dL Creatinine 0.92 (0.57-1.11) mg/dL Est GFR ( Amer) > 60 (> 60) Est GFR (Non-Af Amer) 59 L (> 60) BUN/Creatinine Ratio 15 (6-26) Glucose 108 H (70-99) mg/dL Calculated Osmolality 295 (280-300) Lactic Acid 0.7 (0.5-2.2) mmol/L Calcium 10.3 (8.6-10.8) mg/dL Troponin I (0-0.03) ng/mL B-Natriuretic Peptide (0-100) pg/mL 02/13/17 02/13/17 Range/Units 13:17 13:17 WBC (4.3-11.1) K/mcL RBC (3.82-4.97) M/mcL Hgb (11.5-15.4) g/dL Hct (35.3-44.9) % MCV (83.0-100.0) fL MCH (28.0-33.3) pg MCHC (31.6-35.5) g/dL RDW (11.5-14.5) % Plt Count (140-400) K/mcL MPV (9.4-12.4) fL Immature Gran % (0-4) % Seg Neutrophils % % Lymphocytes % % Monocytes % % Eosinophils % % Basophils % % Neutrophils # (1.6-8.9) K/mcL Lymphocytes # (0.6-4.6) K/mcL Monocytes # (0.0-1.3) K/mcL Eosinophils # (0.0-0.6) K/mcL Basophils # (0.0-0.2) K/mcL Sodium (136-145) mEq/L Potassium (3.5-4.5) mEq/L Chloride (98-109) mEq/L Carbon Dioxide (19-29) mEq/L BUN (7-20) mg/dL Creatinine (0.57-1.11) mg/dL Est GFR ( Amer) (> 60) Est GFR (Non-Af Amer) (> 60) BUN/Creatinine Ratio (6-26) Glucose (70-99) mg/dL Calculated Osmolality (280-300) Lactic Acid (0.5-2.2) mmol/L Calcium (8.6-10.8) mg/dL Troponin I 0.01 (0-0.03) ng/mL B-Natriuretic Peptide 261 H (0-100) pg/mL - Radiology Data Radiology results reviewed: Yes I reviewed the patient's radiology results.
[2017-02-13] MEDS ORDERED: Naloxone 0.4 MG/ML INJ IVP PRN (17:39)
[2017-02-13] MEDS ORDERED: Acetaminophen 325 MG TABLET PO PRN (17:39)
[2017-02-13] MEDS ORDERED: *HR* HYDROcodone/Acet 5/325 mg TABLET PO PRN (17:42)
[2017-02-13] MEDS ORDERED: Furosemide 20 MG TABLET PO PRN (17:42)
--- NOTE | 2017-02-13 17:45 | Internal Med History&Physical ---
Date of Encounter: 02/13/17 Time of Encounter: 17:45 Assessment and Plan (1) Pacemaker at end of battery life Current visit: Yes Status: Acute Patient presented with fatigue, exertional dyspnea, chest pressure. Interrogation of her pacemaker revealed battery was at end of life and also listed potential performance issue. Cardiology consulted and plans procedure tomorrow. continuous retread operator NPO after midnight. Hold Eliquis for planned procedure. (2) Exertional dyspnea Current visit: Yes Status: Acute Patient reporting increased exertional dyspnea over the last several weeks. She does have history of CAD with stent placement. EKG showed ventricular paced rhythm. Troponin negative at 0.01. BNP mildly elevated at 261, but down from previous value. Pacemaker interrogation showed battery at end of life and potential performance issues. Cardiology consulted. Continuous retread operator. serial troponins. (3) CAD (coronary artery disease) Current visit: Yes Status: Chronic Patient with CAD with history of stent placement, here with exertional dyspnea. Continuous retread operator. Serial troponins. Cardiology consulted. Continue aspirin, statin and imdur. Qualifiers: Coronary Disease-Associated Artery/Lesion type: [place] artery [place] vs. transplanted heart: [place] heart Associated angina: without angina Qualified Code(s): I25.10 - Atherosclerotic heart disease of [place] coronary artery without angina pectoris (4) DVT prophylaxis Current visit: Yes Status: Acute sequential compression devices. Patient on eliquis for Afib, but it is being held for planned procedure. Internal Medicine - H&P: HPI Chief complaint: exertional dyspnea Admitted From: Emergency Dept Plans for Post Hospital Care: Home History of present illness: Ms. Mendez is a 76 year old female with hypertension, hyperlipidemia, coronary artery disease status post stent placement, atrial fibrillation, history of tachybradycardia syndrome status post pacemaker, and hypothyroid presented to the emergency department today with exertional dyspnea, chest heaviness, and weakness. Patient reports she has been having her symptoms for several weeks now but it is just worsened. Today she experienced some nausea and lightheadedness and decided was time to come to the emergency department. She denies any palpitations, vomiting, abdominal pain, fever, chills, sweats or diarrhea. Evaluation in the emergency department included an EKG which showed ventricular paced rhythm, chest x-ray showed no acute cardiopulmonary findings. Troponin was negative at 0.01. BNP was mildly elevated at 261. Lactate was normal at 0.7. Other labs are grossly normal. Her pacemaker was interrogated which showed potential device reperformance issue, as well as a battery that needs replacing. Cardiology was consulted and plans procedure tomorrow. On exam, patient alert and oriented, in no acute distress. Heart had regular rate and rhythm, lungs are clear bilaterally to auscultation. Abdomen was soft, nontender with no palpable masses, and positive bowel sounds. No peripheral edema. Past Med Surg Social Fam HX - Past Medical History Medical history: atrial fibrillation, coronary artery disease, hyperlipidemia, hypertension, thyroid disease, other Psychiatric history: no psych history - Past Surgical History Surgical History: angioplasty/stent, pacemaker - Social History Smoking Status: Former smoker Smokeless Tobacco Status: No Alcohol use: none Drug use: none - Family History Father Living Status: Mother Living Status: Internal Medicine - H&P: Meds Aspirin 81 mg PO DAILY 01/04/17 [History] Atorvastatin [Lipitor] 40 mg PO HS 01/04/17 [History] Gabapentin [Neurontin] 600 mg PO HS 01/04/17 [History] HYDROcodone/Acet 5/325 mg [[place] 5-325 mg] 2 tab PO TID PRN 01/04/17 [History] Isosorbide MONOnitrate (24 HR) [Imdur] 90 mg PO DAILY 01/04/17 [History] Levothyroxine Sodium [Levoxyl] 25 mcg PO 0630 01/04/17 [History] Meloxicam 7.5 mg PO BID 01/04/17 [History] Oxybutynin Chloride [Ditropan Xl] 10 mg PO Q48H 01/04/17 [History] Temazepam [Restoril] 30 mg PO HS 01/04/17 [History] Apixaban [Eliquis] 5 mg PO BID 02/13/17 [History] Furosemide [Lasix] 20 mg PO DAILY PRN 02/13/17 [History] Lisinopril [Zestril] 10 mg PO DAILY 02/13/17 [History] Pantoprazole Sodium [Protonix] 40 mg PO DAILY 02/13/17 [History] amLODIPine [Norvasc] 5 mg PO DAILY 02/13/17 [History] 3 Allergy/AdvReac Type Severity Reaction Status Date / Time No Known Allergies Allergy Verified 01/04/17 19:11 All Systems PM: A 10-system review of systems was performed and is negative for pertinent findings except as documented above in the HPI. - Constitutional Constitutional: anorexia, weakness, no chills, no fever(s), no night sweats - EENT Eyes: no change in vision, no discharge, no pain, no photophobia Ears: no ear discharge, no ear pain, no tinnitus Nose, mouth and throat: no dysphagia, no nasal discharge, no neck pain, no sore throat - Cardiovascular Cardiovascular ROS IM: chest pain (chest heaviness), dyspnea on exertion, lightheadedness, no diaphoresis, no dyspnea, no palpitations, no syncope - Respiratory Respiratory: dyspnea on exertion, no cough, no dyspnea, no wheezing, no excessive phlegm production - Gastrointestinal Gastrointestinal: no abdominal pain, no diarrhea, no hematemesis, no hematochezia, no melena, no nausea, no vomiting - Genitourinary Genitourinary: no change in urinary stream, no dysuria, no flank pain, no hematuria - Musculoskeletal Musculoskeletal ROS IM: no numbness, no tingling - Integumentary Integumentary IM: no rash, no unusual bruising - Neurological Neurological ROS: no confusion, no convulsions, no focal weakness, no numbness, no tingling, no tremor(s) - Hematologic/Lymphatic Hematologic/Lymphatic: no easy bruising - Constitutional Vitals: Temp Pulse Resp BP Pulse Ox 97.9 F 64 18 152/75 93 02/13/17 12:21 02/13/17 14:47 02/13/17 17:26 02/13/17 17:26 02/13/17 14:47 General appearance: Present: A&O X 3, morbidly obese, pleasant, no acute distress - Head Head exam: Present: atraumatic, normocephalic - Eye Eye exam: Present: PERRL, conjuntiva pink, sclera anicteric Pupils: Present: PERRL - Neck Neck exam general surgery: Present: supple, trachea midline. Absent: lymphadenopathy - Respiratory Respiratory exam: Present: CTAB. Absent: accessory muscle use, rales, rhonchi, wheezes - Cardiovascular Cardiovascular exam: Present: RRR, +S1, +S2. Absent: diastolic murmur, gallop, rubs, systolic murmur - GI/Abdominal GI/Abdominal exam: Present: normal bowel sounds, soft, no peritoneal signs. Absent: distended, tenderness - Extremities Exam Extremities exam: Present: warm, radial pulses palpable and symmetrical. Absent : calf tenderness, cyanotic, pedal edema - Neurological Exam Neurological exam: Present: CN II-XII intact, oriented X3, no focal deficits. Absent: pronater drift, facial droop, speech deficit - Skin Skin exam: Present: dry, intact Internal Med - H&P Results - Labs CBC & Chem 7: 02/13/17 13:17 02/13/17 13:17 Labs: All Lab Results (24 Hours) 02/13/17 02/13/17 02/13/17 Range/Units 13:17 13: 13:17 WBC 4.0 L (4.3-11.1) K/mcL RBC 4.37 (3.82-4.97) M/mcL Hgb 12.6 (11.5-15.4) g/dL Hct 39.6 (35.3-44.9) % MCV 90.6 (83.0-100.0) fL MCH 28.8 (28.0-33.3) pg MCHC 31.8 (31.6-35.5) g/dL RDW 13.3 (11.5-14.5) % Plt Count 141 (140-400) K/mcL MPV 9.5 (9.4-12.4) fL Immature Gran % 0.3 (0-4) % Seg Neutrophils % 71.7 % Lymphocytes % 17.9 % Monocytes % 7.3 % Eosinophils % 2.0 % Basophils % 0.8 % Neutrophils # 2.8 (1.6-8.9) K/mcL Lymphocytes # 0.7 (0.6-4.6) K/mcL Monocytes # 0.3 (0.0-1.3) K/mcL Eosinophils # 0.1 (0.0-0.6) K/mcL Basophils # 0.0 (0.0-0.2) K/mcL Sodium 142 (136-145) mEq/L Potassium 4.2 (3.5-4.5) mEq/L Chloride 103 (98-109) mEq/L Carbon Dioxide 32 H (19-29) mEq/L BUN 14 (7-20) mg/dL Creatinine 0.92 (0.57-1.11) mg/dL Est GFR ( Amer) > 60 (> 60) Est GFR (Non-Af Amer) 59 L (> 60) BUN/Creatinine Ratio 15 (6-26) Glucose 108 H (70-99) mg/dL Calculated Osmolality 295 (280-300) Lactic Acid 0.7 (0.5-2.2) mmol/L Calcium 10.3 (8.6-10.8) mg/dL Troponin I (0-0.03) ng/mL B-Natriuretic Peptide (0-100) pg/mL 02/13/17 02/13/17 Range/Units 13:17 13:17 WBC (4.3-11.1) K/mcL RBC (3.82-4.97) M/mcL Hgb (11.5-15.4) g/dL Hct (35.3-44.9) % MCV (83.0-100.0) fL MCH (28.0-33.3) pg MCHC (31.6-35.5) g/dL RDW (11.5-14.5) % Plt Count (140-400) K/mcL MPV (9.4-12.4) fL Immature Gran % (0-4) % Seg Neutrophils % % Lymphocytes % % Monocytes % % Eosinophils % % Basophils % % Neutrophils # (1.6-8.9) K/mcL Lymphocytes # (0.6-4.6) K/mcL Monocytes # (0.0-1.3) K/mcL Eosinophils # (0.0-0.6) K/mcL Basophils # (0.0-0.2) K/mcL Sodium (136-145) mEq/L Potassium (3.5-4.5) mEq/L Chloride (98-109) mEq/L Carbon Dioxide (19-29) mEq/L BUN (7-20) mg/dL Creatinine (0.57-1.11) mg/dL Est GFR ( Amer) (> 60) Est GFR (Non-Af Amer) (> 60) BUN/Creatinine Ratio (6-26) Glucose (70-99) mg/dL Calculated Osmolality (280-300) Lactic Acid (0.5-2.2) mmol/L Calcium (8.6-10.8) mg/dL Troponin I 0.01 (0-0.03) ng/mL B-Natriuretic Peptide 261 H (0-100) pg/mL - Diagnostic Studies Chest x-ray Additional comments: Chest X-Ray 02/13/17 12:42 IMPRESSION: No acute cardiopulmonary findings. D/ / Evelyn Mcdowell MD / Evelyn Mcdowell MD Interpreting Provider: Evelyn Mcdowell MD
[2017-02-13] MEDS: Gabapentin 300 MG CAPSULE PO SCH (23:18)
[2017-02-13] MEDS: Temazepam 15 MG CAPSULE PO SCH (23:18)
[2017-02-14 01:41] LABS: Basophils % 0.8 %; Eosinophils # 0.1 K/mcL (0.0-0.6); Eosinophils % 3.7 %; Hematocrit 38.3 % (35.3-44.9); Hemoglobin 12.2 g/dL (11.5-15.4); Immature Granulocytes % 0.3 % (0-4); Lymphocytes % 27.3 %; Mean Corpuscular HGB Conc 31.9 g/dL (31.6-35.5); Mean Corpuscular Hemoglobin 28.3 pg (28.0-33.3); Mean Corpuscular Volume 88.9 fL (83.0-100.0); Mean Platelet Volume 8.8 fL (9.4-12.4); Monocytes # 0.4 K/mcL (0.0-1.3); Monocytes % 11.3 %; Platelet Count 140 K/mcL (140-400); Red Blood Count 4.31 M/mcL (3.82-4.97); Red Cell Distribution Width 13.2 % (11.5-14.5); Segmented Neutrophils % 56.6 %
[2017-02-14 01:44] LABS: INR 1.3; Prothrombin Time 13.9 Seconds (9.4-12.1)
[2017-02-14 01:47] LABS: Activated Partial Thrombo Time 33.2 Seconds (26.0-36.0)
[2017-02-14 01:54] LABS: BUN/Creatinine Ratio 16 (6-26); Blood Urea Nitrogen 14 mg/dL (7-20); Calcium 9.7 mg/dL (8.6-10.8); Carbon Dioxide 32 mEq/L (19-29); Chloride 104 mEq/L (98-109); Glucose 90 mg/dL (70-99); Osmolality,Calculated 294 (280-300); Potassium 3.5 mEq/L (3.5-4.5); Sodium 142 mEq/L (136-145); eGFR For African Americans > 60 (> 60); eGFR For Non-African Americans > 60 (> 60)
[2017-02-14] MEDS: Levothyroxine 25 MCG TABLET PO SCH (05:35)
--- NOTE | 2017-02-14 08:16 | Electrocardiograph Report ---
[facility] Test Date: 2017-02-13 Pat Name: Liesa Mendez Department: 102 Room: 2A11 Gender: F Scrub Technician: : 1940 Requested By: Louis Zayas Order Number: [id number] Reading MD: Jhonatan Pruitt DO Measurements Intervals [place] Rate: 65 P: [place]: 0 QRS: -87 QRSD: 178 T: 77 QT: 455 QTc: 467 Interpretive Statements ELECTRONIC VENTRICULAR PACEMAKER ABNORMAL RHYTHM ECG Electronically Signed On 02-14-2017 8:14:49 EDT by Jhonatan Pruitt DO
[2017-02-14] MEDS: Isosorbide MONOnitrate (24 HR) 30 MG TAB.ER.24H PO SCH (08:25)
[2017-02-14] MEDS: amLODIPine 5 MG TABLET PO SCH (08:25)
[2017-02-14] MEDS: Aspirin 81 MG TAB.CHEW PO SCH (08:25)
--- NOTE | 2017-02-14 09:28 | Electrophysiology Consult Note ---
Date of Encounter: 02/14/17 Time of Encounter: 08:30 Assessment and Plan (1) Pacemaker at end of battery life Current Visit: Yes Status: Acute Per cardiology: -Admitted with shortness of breath and states is worse with anxiety. -Has pacemaker for tachy-jing syndrome. -Known pacemaker at end of battery life. Has appointment with Dr.John Ruiz to set up generator change. -Device checked by ER and noted to be in DAY 01/04/17, Normal functioning pacemaker. Pacing 1.2% of time. -Device will function normally until 04/06/17. -Telemetry reviewed with average HR 66, atrial flutter noted with intermittent pacing. No bradycardia noted. -01/23/2017 Nuclear stress negative for ischemia or infarct. -Echo 01/05/17 with LVEF 65%, mild-moderately dilated left atrium, mildly dilated right atrium, mild MR, mild TR, mild pulmonary hypertension, all wall segments with normal motion. -ECG with atrial flutter and paced rhythm. -Per discussion with Dr.John Ruiz, will make NPO after midnight for pacemaker generator change. states ok to resume eliquis. Per , no need to hold eliquis. Discussion w patient/family: The assessment and plan as outlined above was discussed with the patient who expressed understanding and agreement. All questions were answered. Thank you for involving us in the care of your patient. Please call with any questions. Discussed and reviewed with Dr.John Ruiz. History of Present Illness Consult date: 02/14/17 Requesting physician: Louis Zayas Consult reason: need pacemaker replacement Chief complaint: shortness of breath History of present illness: Ms. Mendez is a 76 year old female with a relevant past medical history of HTN, hyperlipidemia, CAD, tachy-jing syndrome s/p pacemaker. Patient presents to [facility] with complaints of shortness of breath. Patient denies chest pain, however admits to pressure that is constant. Patient admits to shortness of breath. Patient states she feels short of breath when her anxiety occurs. Patient states she knows her battery is at end of life and this makes her very anxious. Patient states she would stop worrying about pacemaker if generator was changed while she was here. Past Med Surg Social Fam HX - Past Medical History Attestation: Yes The following information was validated with the patient. Source: patient, old records reviewed Medical history: atrial fibrillation, coronary artery disease, hyperlipidemia, hypertension, thyroid disease, other Psychiatric history: no psych history - Past Surgical History Surgical History: angioplasty/stent, pacemaker - Social History Smoking Status: Former smoker Smokeless Tobacco Status: No Alcohol use: none Drug use: none - Family History Father Living Status: Mother Living Status: Medications and Allergies Aspirin 81 mg PO DAILY 01/04/17 [History] Atorvastatin [Lipitor] 40 mg PO HS 01/04/17 [History] Gabapentin [Neurontin] 600 mg PO HS 01/04/17 [History] HYDROcodone/Acet 5/325 mg [[place] 5-325 mg] 2 tab PO TID PRN 01/04/17 [History] Isosorbide MONOnitrate (24 HR) [Imdur] 90 mg PO DAILY 01/04/17 [History] Levothyroxine Sodium [Levoxyl] 25 mcg PO 0630 01/04/17 [History] Meloxicam 7.5 mg PO BID 01/04/17 [History] Oxybutynin Chloride [Ditropan Xl] 10 mg PO Q24H 01/04/17 [History] Temazepam [Restoril] 30 mg PO HS 01/04/17 [History] Apixaban [Eliquis] 5 mg PO BID 02/13/17 [History] Furosemide [Lasix] 20 mg PO DAILY PRN 02/13/17 [History] Lisinopril [Zestril] 10 mg PO DAILY 02/13/17 [History] Pantoprazole Sodium [Protonix] 40 mg PO DAILY 02/13/17 [History] amLODIPine [Norvasc] 5 mg PO DAILY 02/13/17 [History] 3 Allergy/AdvReac Type Severity Reaction Status Date / Time No Known Allergies Allergy Verified 01/04/17 19:11 All Systems Review: A 10-system review of systems was performed and is negative for pertinent findings except as documented above in the HPI. - Cardiovascular Cardiovascular: dyspnea on exertion Physical Examination Vital Signs, Last 4 Hours Temp Pulse Resp BP Pulse Ox 02/14/17 07:11 98.2 F 65 17 145/71 92 General: Conversant, No Apparent Distress HEENT: Atraumatic, Normocephaly, Mucus Membranes Moist Neck: No JVD, Normal carotid pulses Cardiac: Reg Rate and Rhythm, Normal S1 and S2, No Murmur Lungs: Normal Breath Sounds, No Wheeze, Rales, Rhonchi Neuro: Alert and responsive, No focal deficits noted Abdomen: Soft, Non-Tender Skin: No rashes noted on visualized skin Musculoskeletal: No Chest Wall Tenderness Extremities: No Clubbing, No Cyanosis, Normal Pulses, Other (Mild bilateral pedal edema noted. ) Results 02/14/17 01:33 02/14/17 01:33 Lab Results Impressions Chest X-Ray 02/13/17 12:42 IMPRESSION: No acute cardiopulmonary findings. D/ / Evelyn Mcdowell MD / Evelyn Mcdowell MD Interpreting Provider: Evelyn Mcdowell MD Active Medications Acetaminophen (Tylenol) 650 mg PO Q6HR PRN PRN Reason: Mild Pain (1-3) Stop: 08/15/17 17:40 Hydrocodone Bitart/Acetaminophen ([place] 5-325 Mg) 2 tab PO TID PRN PRN Reason: Moderate to Severe Pain (4-10) Stop: 08/15/17 17:43 Amlodipine Besylate (Norvasc) 5 mg PO DAILY ATUL PRN Reason: Protocol Stop: 08/16/17 09:01 Last Admin: 02/14/17 08:25 Dose: 5 mg Apixaban (Eliquis) 5 mg PO BID [facility] Stop: 08/15/17 21:01 Aspirin (Aspirin) 81 mg PO DAILY ATUL Stop: 08/16/17 09:01 Last Admin: 02/14/17 08:25 Dose: 81 mg Atorvastatin Calcium (Lipitor) 40 mg PO HS [facility] Stop: 08/15/17 21:01 Last Admin: 02/13/17 23:18 Dose: 40 mg Docusate Sodium (Colace) 100 mg PO BID PRN PRN Reason: Constipation Stop: 08/15/17 17:40 Furosemide (Lasix) 20 mg PO DAILY PRN PRN Reason: Swelling Stop: 08/15/17 17:43 Gabapentin (Neurontin) 600 mg PO HS [facility] Stop: 08/15/17 21:01 Last Admin: 02/13/17 23:18 Dose: 600 mg Isosorbide Mononitrate (Imdur) 90 mg PO DAILY [facility] Stop: 08/16/17 09:01 Last Admin: 02/14/17 08:25 Dose: 90 mg Levothyroxine Sodium (Synthroid) 25 mcg PO 0630 [facility] Stop: 08/16/17 06:31 Last Admin: 02/14/17 05:35 Dose: 25 mcg Lisinopril (Zestril) 10 mg PO DAILY ATUL PRN Reason: Protocol Stop: 08/16/17 09:01 Last Admin: 02/14/17 08:25 Dose: 10 mg Meloxicam (Mobic) 7.5 mg PO BID [facility] Stop: 08/15/17 21:01 Last Admin: 02/14/17 08:32 Dose: Not Given Naloxone HCl (Narcan) 0.4 mg IVP Q2MIN PRN PRN Reason: Opioid Reversal Stop: 08/15/17 17:40 Omeprazole (Prilosec) 20 mg PO 629 [facility] Stop: 08/16/17 06:31 Last Admin: 02/14/17 05:35 Dose: 20 mg Oxybutynin Chloride (Ditropan) 5 mg PO BID [facility] Stop: 08/16/17 09:01 Last Admin: 02/14/17 08:25 Dose: 5 mg Temazepam (Restoril) 30 mg PO HS [facility] Stop: 08/15/17 21:01 Last Admin: 02/13/17 23:18 Dose: 30 mg Laboratory Tests 02/13/17 02/13/17 02/14/17 13:17 13:17 01:33 WBC Hgb Plt Count INR Potassium Creatinine Troponin I 0.01 0.02 B-Natriuretic Peptide 261 H 02/14/17 02/14/17 02/14/17 01:33 01:33 01:33 WBC 3.6 L Hgb 12.2 Plt Count 140 INR 1.3 Potassium 3.5 Creatinine 0.89 Troponin I B-Natriuretic Peptide - Imaging and Cardiology Chest Xray: report reviewed Stress Test: report reviewed Echo: report reviewed - EKG Interpretation EKG results cardiology: other (Telemetry reviewed with average HR 66, atrial flutter with intermittent pacing.) Consult Discharge Plan - Plan Referrals: Gemma Willson, INSTRUMENT ASSEMBLY SUPERVISOR [Primary Care Provider] - (web request 02/14/2017)
--- NOTE | 2017-02-14 14:28 | Internal Med Progress Note ---
<Jayden Silveira - Last Filed: 02/14/17 14:36> Date of Encounter: 02/14/17 Time of Encounter: 09:00 - Assessment and plan (1) Pacemaker at end of battery life Current Visit: Yes Status: Acute Assessment and plan: - Patient has pacemaker for tachybradycardia syndrome - Patient reports exertional dyspnea starting yesterday, no longer experiencing symptoms - Continuous telemetry shows 2:1 atrial flutter, rate controlled in 70s - Cardiology consulted, per note, will replace battery tomorrow, patient to be made nothing by mouth at midnight, okay to resume home eliquis - Continue to monitor and defer to cardiology (2) Exertional dyspnea Current Visit: Yes Status: Resolved Assessment and plan: - Likely secondary to pacemaker versus anxiety - Patient admits to anxiety over health concerns. No longer symptomatic - BNP, troponin within normal limits emergency department - Tolerating room air. We will monitor and treat as necessary (3) Hypertension Current Visit: No Status: Chronic Assessment and plan: Current blood pressure 110/63 - Continue home medications Qualifiers: Hypertension type: essential hypertension Qualified Code(s): I10 - Essential (primary) hypertension (4) Hypothyroid Current Visit: Yes Status: Chronic Assessment and plan: - Continue home dosage of Synthroid Qualifiers: Hypothyroidism type: unspecified Qualified Code(s): E03.9 - Hypothyroidism , unspecified (5) CAD (coronary artery disease) Current Visit: Yes Status: Chronic Assessment and plan: - Stable, no chest pain - Continue home medications Qualifiers: Coronary Disease-Associated Artery/Lesion type: [place] artery [place] vs. transplanted heart: [place] heart Associated angina: without angina Qualified Code(s): I25.10 - Atherosclerotic heart disease of [place] coronary artery without angina pectoris (6) DVT prophylaxis Current Visit: Yes Status: Acute Assessment and plan: - Per cardiology, okay to resume home eliquis - Time Spent With Patient 25 - 35 minutes - Subjective Interval history: Patient seen and examined this this morning at bedside. She states that she is no longer expressing any symptoms of shortness of breath. Denies any symptoms of chest pain, palpitations, fevers, chills. She is in no current pain. She has no further complaints this time. - Constitutional Vitals: Temp Pulse Resp BP Pulse Ox 98.2 F 66 20 110/63 93 02/14/17 10:44 02/14/17 10:44 02/14/17 10:44 02/14/17 10:44 02/14/17 10:44 General appearance: Present: A&O X 3, morbidly obese, pleasant, no acute distress Exam: Gen.: Vitals noted. No acute distress. AAOx3 HEENT: PERRL/EOMI, oropharynx clear, Normocephalic, atraumatic Neck: Supple. No adenopathy. Cardiac: RRR, no murmur, +S1/S2 Pulmonary: CTA bilaterally, no wheezes, rales or rhonchi, equal chest expansion Abdomen: soft, nontender, BS noted, no guarding Back: Nontender throughout. MSK: ROM intact, no joint swelling noted Extremities: no BLE edema, nontender calf, no cyanosis or clubbing Neuro: A&Ox3, moves all extremities, no focal deficits Psych: Appropriate mood and behavior Internal Medicine: Result - Labs CBC & Chem 7: 02/14/17 01:33 02/14/17 01:33 Labs: Short CBC 02/14/17 Range/Units 01:33 WBC 3.6 L (4.3-11.1) K/mcL Hgb 12.2 (11.5-15.4) g/dL Hct 38.3 (35.3-44.9) % Plt Count 140 (140-400) K/mcL Neutrophils # 2.0 (1.6-8.9) K/mcL BMP 02/14/17 01:33 Sodium 142 Potassium 3.5 Chloride 104 Carbon Dioxide 32 H BUN 14 Creatinine 0.89 Glucose 90 Calcium 9.7 Cardiac Enzymes 02/14/17 Range/Units 01:33 Troponin I 0.02 (0-0.03) ng/mL - ABG Interpretation ABG results: PT/INR, D-dimer PT 13.9 Seconds (9.4-12.1) H 02/14/17 01:33 Consult Discharge Plan - Plan Referrals: Gemma Willson, LIVESTOCK SHOWMAN [Primary Care Provider] - (web request 02/14/2017) <Erickson Almonte - Last Filed: 02/14/17 18:09> Date of Encounter: 02/14/17 - Assessment and plan (1) Exertional dyspnea Current Visit: Yes Status: Resolved (2) Pacemaker at end of battery life Current Visit: Yes Status: Acute (3) CAD (coronary artery disease) Current Visit: Yes Status: Chronic Qualifiers: Coronary Disease-Associated Artery/Lesion type: [place] artery [place] vs. transplanted heart: [place] heart Associated angina: without angina Qualified Code(s): I25.10 - Atherosclerotic heart disease of [place] coronary artery without angina pectoris (4) Hypertension Current Visit: No Status: Chronic Qualifiers: Hypertension type: essential hypertension Qualified Code(s): I10 - Essential (primary) hypertension (5) Hypothyroid Current Visit: Yes Status: Chronic Qualifiers: Hypothyroidism type: unspecified Qualified Code(s): E03.9 - Hypothyroidism , unspecified (6) Morbid obesity with BMI of 40.0-44.9, adult Current Visit: No Status: Chronic - Constitutional Vitals: Temp Pulse Resp BP Pulse Ox 98.4 F 65 19 97/59 95 02/14/17 16:31 02/14/17 16:31 02/14/17 16:31 02/14/17 16:31 02/14/17 16:31 Internal Medicine: Result - Labs CBC & Chem 7: 02/14/17 01:33 02/14/17 01:33 Labs: Short CBC 02/14/17 Range/Units 01:33 WBC 3.6 L (4.3-11.1) K/mcL Hgb 12.2 (11.5-15.4) g/dL Hct 38.3 (35.3-44.9) % Plt Count 140 (140-400) K/mcL Neutrophils # 2.0 (1.6-8.9) K/mcL BMP 02/14/17 01:33 Sodium 142 Potassium 3.5 Chloride 104 Carbon Dioxide 32 H BUN 14 Creatinine 0.89 Glucose 90 Calcium 9.7 Cardiac Enzymes 02/14/17 Range/Units 01:33 Troponin I 0.02 (0-0.03) ng/mL - ABG Interpretation ABG results: PT/INR, D-dimer PT 13.9 Seconds (9.4-12.1) H 02/14/17 01:33 - Attending Attestation I examined this patient and my medical decision-making was reviewed with the Resident Physician on 02/14/17. I agree with the documented findings, disposition and treatment plan as described except to the extent set forth below. Ms. Mendez is currently in observation for dyspnea and symptoms potentially related to pacemaker issues. She is to have battery replaced tomorrow. Ms. Mendez is doing OK. She is now eating. No new issues at this time. No CP or SOB. No fever or chills. Exam Alert. Comfortable Heart reg No wheeze Abd soft I/P 1. Dyspnea 2. A flutter Further diagnoses and plan as above.
[2017-02-14] MEDS: Temazepam 15 MG CAPSULE PO SCH (20:33)
[2017-02-14] MEDS: APIXABAN 5 MG TABLET PO SCH (20:33)
[2017-02-14] MEDS: Gabapentin 300 MG CAPSULE PO SCH (20:33)
[2017-02-14] MEDS: *HR* HYDROcodone/Acet 5/325 mg TABLET PO PRN (20:42)
[2017-02-15] MEDS ORDERED: Melatonin 3 MG TABLET PO PRN (01:39)
[2017-02-15 05:34] LABS: Hematocrit 36.4 % (35.3-44.9); Hemoglobin 11.7 g/dL (11.5-15.4); Mean Corpuscular HGB Conc 32.1 g/dL (31.6-35.5); Mean Corpuscular Hemoglobin 29.4 pg (28.0-33.3); Mean Corpuscular Volume 91.5 fL (83.0-100.0); Mean Platelet Volume 9.7 fL (9.4-12.4); Platelet Count 144 K/mcL (140-400); Red Blood Count 3.98 M/mcL (3.82-4.97); Red Cell Distribution Width 13.7 % (11.5-14.5)
[2017-02-15 05:52] LABS: BUN/Creatinine Ratio 16 (6-26); Blood Urea Nitrogen 16 mg/dL (7-20); Calcium 9.1 mg/dL (8.6-10.8); Carbon Dioxide 30 mEq/L (19-29); Chloride 106 mEq/L (98-109); Glucose 95 mg/dL (70-99); Osmolality,Calculated 295 (280-300); Potassium 3.7 mEq/L (3.5-4.5); Sodium 142 mEq/L (136-145); eGFR For African Americans > 60 (> 60); eGFR For Non-African Americans 55 (> 60)
[2017-02-15] MEDS: *HR* HYDROcodone/Acet 5/325 mg TABLET PO PRN ×2 (06:31→14:27)
[2017-02-15] MEDS: Levothyroxine 25 MCG TABLET PO SCH (06:31)
[2017-02-15] MEDS ORDERED: ceFAZolin 2,000 MG in D5% in Water 100 ML IVPB ONE (08:00)
[2017-02-15] MEDS: Isosorbide MONOnitrate (24 HR) 30 MG TAB.ER.24H PO SCH (09:03)
[2017-02-15] MEDS: Aspirin 81 MG TAB.CHEW PO SCH (09:03)
[2017-02-15] MEDS: APIXABAN 5 MG TABLET PO SCH (09:03)
[2017-02-15] MEDS: amLODIPine 5 MG TABLET PO SCH (09:03)
[2017-02-15 09:20] LABS: INR 1.3; Prothrombin Time 14.2 Seconds (9.4-12.1)
--- NOTE | 2017-02-15 11:30 | Event Note ---
Date of Encounter: 02/15/17 Time of Encounter: 11:00 - Cardiology Event Note Plan for pacemaker generator change today. Risk versus benefits of procedure explained to patient. Patient states understanding and agreeable to proceed. Dr.John Ruiz updated on missed dose of eliquis yesterday and of WBC of 4. EP/ Cadiology plans to sign off after generator change. Follow up set in cardiology clinic.
--- NOTE | 2017-02-15 11:34 | Pre-Sedation Evaluation ---
Pre-sedation evaluation - Pre-sedation checklist Date of procedure: 02/14/17 Procedure: Pacer insertion Recent Vitals: Last Vital Signs Temp 97.9 F 02/15/17 11:13 Pulse 65 02/15/17 11:13 Resp 18 02/15/17 11:13 BP 120/68 02/15/17 11:13 Pulse Ox 92 02/15/17 11:13 H&P (including ROS) documented in medical record: Yes Previous reaction to sedatives/anesthetics: No Dietary Status: NPO after Midnight Airway Assessment: Patient can open mouth completely, TMJ function normal, Micrognathia (under-bite, receding chin) absent Dentition: No loose teeth or bridges Possible difficult airway: No ASA Classification *see protocol: CLASS II-Mild systemic disease Plan of Care: Pt appropriate candidate for procedure/moderate/conscious sedation , Risks/benefits of procedure/sedation discussed w/ patient/family
[2017-02-15] MEDS ORDERED: *HR* FentaNYL (PF) 100 MCG/2 ML VIAL ONE (11:58)
[2017-02-15] MEDS ORDERED: *HR* Midazolam HCl 2 MG/2 ML VIAL ONE (11:59)
[2017-02-15] MEDS ORDERED: 0.9 % Sodium Chloride 1,000 ML ONE (11:59)
[2017-02-15] MEDS ORDERED: 0.9 % Sodium Chloride 500 ML ONE (11:59)
[2017-02-15] MEDS ORDERED: Water for inj. (sterile) 10 ML IV ONE (11:59)
--- NOTE | 2017-02-15 13:41 | Discharge Summary ---
<Jayden Silveira - Last Filed: 02/15/17 16:12> Date of Encounter: 02/15/17 Time of Encounter: 09:00 - Discharge Diagnosis (1) Pacemaker at end of battery life Priority: Primary Status: Resolved (2) Exertional dyspnea Priority: Secondary Status: Resolved (3) Hypertension Priority: Secondary Status: Chronic Qualifiers: Hypertension type: essential hypertension Qualified Code(s): I10 - Essential (primary) hypertension (4) Hypothyroid Priority: Secondary Status: Chronic Qualifiers: Hypothyroidism type: unspecified Qualified Code(s): E03.9 - Hypothyroidism , unspecified (5) CAD (coronary artery disease) Priority: Secondary Status: Chronic Qualifiers: Coronary Disease-Associated Artery/Lesion type: [place] artery [place] vs. transplanted heart: [place] heart Associated angina: without angina Qualified Code(s): I25.10 - Atherosclerotic heart disease of [place] coronary artery without angina pectoris (6) DVT prophylaxis Priority: Secondary Status: Acute - Discharge Medications Home Medications: Aspirin 81 mg PO DAILY 01/04/17 [History] Atorvastatin [Lipitor] 40 mg PO HS 01/04/17 [History] Gabapentin [Neurontin] 600 mg PO HS 01/04/17 [History] HYDROcodone/Acet 5/325 mg [Hines 5-325 mg] 2 tab PO TID PRN 01/04/17 [History] Isosorbide MONOnitrate (24 HR) [Imdur] 90 mg PO DAILY 01/04/17 [History] Levothyroxine Sodium [Levoxyl] 25 mcg PO 0630 01/04/17 [History] Meloxicam 7.5 mg PO BID 01/04/17 [History] Oxybutynin Chloride [Ditropan Xl] 10 mg PO Q24H 01/04/17 [History] Temazepam [Restoril] 30 mg PO HS 01/04/17 [History] Apixaban [Eliquis] 5 mg PO BID 02/13/17 [History] Furosemide [Lasix] 20 mg PO DAILY PRN 02/13/17 [History] Lisinopril [Zestril] 10 mg PO DAILY 02/13/17 [History] Pantoprazole Sodium [Protonix] 40 mg PO DAILY 02/13/17 [History] amLODIPine [Norvasc] 5 mg PO DAILY 02/13/17 [History] Allergies/Adverse Reactions: 3 Allergy/AdvReac Type Severity Reaction Status Date / Time No Known Allergies Allergy Verified 01/04/17 19:11 Procedures/tests Complete & Pending: Procedures Performed prior 72 hours Category Date Time Status CL Generator Remove Replace [CL] Routine Tool And Die Repair 02/15/17 08:02 Completed Date of admission: 02/13/17 16:19 Primary care physician: Gemma Willson CNP Discharging clinician: Jayden Silveira Anticipated date of discharge: 02/15/17 - Patient Status Disposition: Home, Self-Care Condition: Good - Discharge Instructions Follow Up With: Cardiology [facility] [Provider Group] - 02/22/17 10:30 am ([facility] clinic) Gemma Willson CNP [Primary Care Provider] - 02/19/17 10:35 am () Additional Instructions: His follow-up with your primary care physician and aerotriangulation specialist for management of your medical conditions. Hospital course: Ms. Mendez is a 76 year old female who presents to emergency department with complaint of dyspnea on exertion. She states she is at the end of her life span with pacemaker for tachybradycardia syndrome. Presents today with concern for weakness as well as dyspnea. She states she has been having the symptoms for several weeks, however it has been worsening. She started to explain some nausea and lightheadedness on the afternoon of admission and decided it was time to come to respond. She denies any symptoms palpitations, vomiting, abdominal pain, fever, chills, sweats, diarrhea. In the emergency department, patient was hypertensive at 152/75, remainder vital signs within normal limits. EKG showed atrial flutter with 2 to one conduction and rate controlled at 64. Lab results were significant for mildly elevated BNP of 261. Remainder of labs within normal limits. Pacemaker was interrogated in the emergency department, and there is found to be a normal functioning pacemaker, pacing 1.2 % of the time.. Documentation from primary care physician and [employer] indicated that the generator should have been good until March 2017. Chest x- ray and spine showed no acute process. Patient was admitted to medicine service for further management of pacemaker at end of battery life. During course of hospital stay, patient remained asymptomatic, no longer expressing any symptoms of shortness of breath, palpitations, chest pain. Cardiology was consulted during course of hospital stay. Previous cardiac workup including nuclear stress tests and echocardiogram revealed no abnormalities. Cardiology elected to change the generator for pacemaker on afternoon of discharge. Patient tolerated the procedure well, is currently experiencing no symptoms. She was discharged home in stable medical condition and instructed to follow-up with her primary care physician as well as her aerotriangulation specialist regarding further management of her care. She was instructed to return the emergency department if her symptoms should return or worsen. - Time Spent with Patient Total time spent providing and/or coordinating discharge services: 40 minutes - Constitutional Vitals: Temp Pulse Resp BP Pulse Ox 97.9 F 65 18 120/68 92 02/15/17 11:13 02/15/17 11:13 02/15/17 11:13 02/15/17 11:13 02/15/17 11:13 General appearance: Present: A&O X 3, morbidly obese, pleasant, no acute distress <Erickson Almonte - Last Filed: 02/15/17 17:54> Date of Encounter: 02/15/17 - Discharge Diagnosis (1) Exertional dyspnea Priority: Primary Status: Resolved (2) Pacemaker at end of battery life Status: Resolved (3) CAD (coronary artery disease) Status: Chronic Qualifiers: Coronary Disease-Associated Artery/Lesion type: [place] artery [place] vs. transplanted heart: [place] heart Associated angina: without angina Qualified Code(s): I25.10 - Atherosclerotic heart disease of [place] coronary artery without angina pectoris (4) Hypertension Status: Chronic Qualifiers: Hypertension type: essential hypertension Qualified Code(s): I10 - Essential (primary) hypertension (5) Hypothyroid Status: Chronic Qualifiers: Hypothyroidism type: unspecified Qualified Code(s): E03.9 - Hypothyroidism , unspecified (6) Morbid obesity with BMI of 40.0-44.9, adult Priority: Secondary Status: Chronic Procedures/tests Complete & Pending: Procedures Performed prior 72 hours Category Date Time Status CL Generator Remove Replace [CL] Routine Tool And Die Repair 02/15/17 08:02 Completed Date of admission: 02/13/17 16:19 Primary care physician: Gemma Willson [facility] Hospital course: Ms. Mendez is a 76 year old female - Time Spent with Patient Total time spent providing and/or coordinating discharge services: 38min - Constitutional Vitals: Temp Pulse Resp BP Pulse Ox 97.8 F 65 14 110/57 95 02/15/17 13:40 09/07/17 13:40 02/15/17 13:40 02/15/17 13:40 02/15/17 13:40 - Attending Attestation I examined this patient and my medical decision-making was reviewed with the Resident Physician on 02/15/17. I agree with the documented findings, disposition and treatment plan as described except to the extent set forth below. Ms Mendez was admitted for pacer battery issues. She had the generator changed today. She is now afebrile with stable vitals and ready for discharge home. Exam Alert. Comfortable Heart reg No wheeze Abs soft Plan D/C home today with outpatient follow up.
[2017-02-15 14:35] VITALS: BP 110/57
== END 2017-02-15 15:53 | disposition home or self-care (01) ==
LOC: EMEROO 12:08 → 3BNU 12:08 → 2ANU 17:54
PROVIDERS: ADMIT Internal Medicine; ATTEND Internal Medicine

== ENCOUNTER 2018-05-08 15:06 | Observation (INO) ==
[2018-05-08] MEDS ORDERED: 0.9 % Sodium Chloride 1,000 ML IVC ONE (15:38)
[2018-05-08] MEDS ORDERED: Acetaminophen 325 MG TABLET PO ONE (15:38)
--- NOTE | 2018-05-08 15:47 | Emergency Department Note ---
Disposition Clinical Impression: Acute electrocardiogram changes, Anemia, Abdominal aortic aneurysm (AAA) 3.0 cm to 5.0 cm in diameter in female, TISH (acute kidney injury) Disposition: Admitted As Inpatient Condition: Fair General Adult HPI - General Chief complaint: ED Weakness Stated complaint: Flu like symptoms Time Seen by Provider: 05/08/18 15:17 Source: patient, family Mode of arrival: private vehicle Limitations: no limitations Nursing Notes Reviewed: Yes Vital Signs Reviewed: Yes - History of Present Illness Pt Subjective Complaint: "Slime balls in back of throat and abdominal pain" Onset (ago): day(s) (Since last Sunday) Location: abdomen (LUQ, LLQ and epigastrium) Radiation: non-radiation Pain Severity: moderate Pain Scale: 6 Quality: other (cramping) Consistency: constant, Worsening Improves with: nothing Worsens with: eating Associated symptoms: Reports: cough (infrequent, dry), loss of appetite, malaise, shortness of breath, weakness ("All over"). Denies: confusion, chest pain, diaphoresis, fever/chills, headaches, nausea/vomiting, rash, seizure, syncope Treatments Prior to Arrival: none - Related Data Home Medications Medication Instructions Recorded Confirmed RX: Atorvastatin [Lipitor] 40 mg PO HS 12/22/17 05/08/18 RX: HYDROcodone/Acet 7.5/325 mg 2 tab PO TID PRN 12/22/17 05/08/18 [[place] 7.5-325 mg] RX: Isosorbide MONOnitrate (24 HR) 90 mg PO DAILY 12/22/17 05/08/18 [Imdur] RX: Levothyroxine [Synthroid] 25 mcg PO 0630 12/22/17 05/08/18 RX: Lisinopril [Zestril] 10 mg PO DAILY 12/22/17 05/08/18 RX: Meloxicam 7.5 mg PO BID 12/22/17 05/08/18 RX: Temazepam [Restoril] 30 mg PO HS 12/22/17 05/08/18 Docusate [Colace] 100 mg PO QAM 05/08/18 05/08/18 Previous Rx's Medication Instructions Recorded RX: Aspirin 81 mg PO DAILY tab.chew 12/27/17 Allergies Allergy/AdvReac Type Severity Reaction Status Date / Time No Known Allergies Allergy Verified 05/08/18 22:41 All systems ED: reviewed and negative except as stated. Review of Systems: As Per HPI Constitutional: Reports: as per HPI, weakness. Denies: fever, chills Eyes: Denies: eye pain, eye discharge, vision change ENT ED: Reports: congestion. Denies: ear pain, throat pain, dysphagia Cardiovascular: Reports: as per HPI, dyspnea on exertion. Denies: chest pain, palpitations, orthopnea, edema, syncope Respiratory: Reports: as per HPI, cough, dyspnea. Denies: wheezes, hemoptysis, stridor, sputum production Gastrointestinal: Reports: as per HPI, abdominal pain. Denies: nausea, vomiting, diarrhea, constipation, hematemesis, melena, hematochezia Genitourinary: Reports: frequency. Denies: urgency, dysuria, hematuria, discharge Musculoskeletal: Denies: back pain, neck pain, joint swelling, arthralgia, myalgia Integumentary: Denies: rash, lesions, pruritus Neurological: Reports: weakness. Denies: headache, numbness, paresthesias, confusion, vertigo Endocrine: Reports: fatigue Hematological/Lymphatic: Denies: easy bleeding, easy bruising, lymphadenopathy Allergic/Immunologic: Denies: facial swelling, urticaria, itchy eyes Past Medical History - Past Medical History Attestation: Yes The following information was validated with the patient. Source: patient Medical history: Reports: atrial fibrillation, hypertension, other Surgical history: Reports: pacemaker/AICD, LE stent (s) Psychiatric history: Reports: no psych history - Social History Smoking Status: Never smoker Smokeless Tobacco Status: No Alcohol use: Reports: none Drug use: Reports: none Physical Exam - General Limitations: no limitations General appearance: alert, in no apparent distress - Head Head exam: atraumatic, normocephalic, normal inspection - Eye Eye exam: Present: normal appearance, PERRL, EOMI. Absent: scleral icterus, conjunctival injection, nystagmus, miosis, mydriasis, periorbital swelling - ENT ENT exam: mucous membranes dry, other (no pharyngeal edema or erythema) - Neck Neck exam: Present: normal inspection, full ROM, trachea midline. Absent: tenderness, meningismus, lymphadenopathy - Chest Chest inspection: Present: normal inspection - Respiratory Respiratory exam: Present: normal lung sounds bilaterally. Absent: respiratory distress, wheezes, stridor, accessory muscle use - Cardiovascular Cardiovascular exam: Present: regular rate, normal rhythm - Abdominal Exam Abdominal exam: Present: soft, tenderness, normal bowel sounds. Absent: dist ention, guarding, rebound, rigidity, organomegaly, Chapman's sign, tenderness at McBurney's Point, ascites, mass, pulsatile mass Abdominal tenderness: Present: LUQ, LLQ, mild - Extremities Exam Extremities exam: Present: normal inspection, full ROM, normal capillary refill - Back Exam Back exam: Present: normal inspection. Absent: CVA tenderness (R), CVA tenderness (L) - Neurological Exam Neurological exam: Present: alert, oriented X3, CN II-XII intact, normal gait - Psychiatric Psychiatric exam: Present: normal affect, normal mood - Skin Skin exam: Present: warm, dry, intact, normal color Course Course Narrative: Patient presents from home with family for evaluation of left-sided abdominal pain, fatigue, weakness, postnasal drainage. All symptoms began the day after Thanksgiving. She denies chest pain, has had dyspnea on exertion but no shortness of breath at rest. She denies diarrhea, constipation, melena, hematochezia, dysuria urgency or urinary retention. She has had a lot of postnasal drainage and describes feeling like she has "Big slime Balls in the back of her throat." She feels that this is contributing to the nausea. On exam, she is pleasant, conversant, smiling. She appears uncomfortable but nontoxic. She is able to laugh and told jokes. She has tenderness to palpation epigastrium, left upper quadrant and left lower quadrant. There is no guarding or peritoneal signs. Bowel sounds are normoactive in all four quadrants. She has no CVA tenderness. EKG, chest x-ray, CT abdomen and pelvis. Labs, fluids and Tylenol ordered. Patient's EKG shows a paced rhythm, rate of 62. She does have ST elevation in two, three and aVF which is new compared to December 2017. T wave changes in AVL also noted. A picture of the EKG was sent via [employer] to Dr. Felix. He called back to discuss the case. He does not feel that this is a STEMI. He states that it is less than a millimeter and nondiagnostic, especially in the setting of a patient with no chest pain. Labs thus far show new anemia, and TISH. CXR read by Radiologist as no acute abnormality. CT abdomen and pelvis shows a stable 3.5 cm infrarenal abdominal aortic aneurysm and a punctate ureterolith, nonobstructing, no acute abnormality. Given patient's EKG changes, new anemia and TISH, recommended admission. Vital Signs Temperature 97.9 F 05/08/18 15:08 Pulse Rate 65 05/08/18 15:08 Respiratory Rate 20 05/08/18 15:08 Blood Pressure 103/57 05/08/18 15:08 O2 Sat by Pulse Oximetry 98 05/08/18 15:08 Temperature 98.1 F 05/09/18 03:47 Pulse Rate 61 05/09/18 03:47 Respiratory Rate 16 05/09/18 03:47 Blood Pressure 101/58 05/09/18 03:47 O2 Sat by Pulse Oximetry 95 05/09/18 03:47 Oxygen Delivery Oxygen Delivery Room Air Medical Decision Making - Medical Records Medical records reviewed: Yes I reviewed the patient's medical records. - Lab Data Lab results reviewed: Yes I reviewed the patient's lab results. Lab results narrative: Laboratory Last Values WBC 4.4 K/mcL (4.3-11.1) 05/08/18 15:38 RBC 2.90 M/mcL (3.82-4.97) L 05/08/18 15:38 Hgb 8.9 g/dL (11.5-15.4) L 05/08/18 15:38 Hct 27.2 % (35.3-44.9) L 05/08/18 15:38 MCV 93.8 fL (83.0-100.0) 05/08/18 15:38 MCH 30.7 pg (28.0-33.3) 05/08/18 15:38 MCHC 32.7 g/dL (31.6-35.5) 05/08/18 15:38 RDW 13.1 % (11.5-14.5) 05/08/18 15:38 Plt Count 157 K/mcL (140-400) 05/08/18 15:38 MPV 9.3 fL (9.4-12.4) L 05/08/18 15:38 Immature Gran % 0.5 % (0-4) 05/08/18 15:38 Seg Neutrophils % 63.1 % 05/08/18 15:38 Lymphocytes % 23.2 % 05/08/18 15:38 Monocytes % 9.3 % 05/08/18 15:38 Eosinophils % 3.4 % 05/08/18 15:38 Basophils % 0.5 % 05/08/18 15:38 Neutrophils # 2.8 K/mcL (1.6-8.9) 05/08/18 15:38 Lymphocytes # 1.0 K/mcL (0.6-4.6) 05/08/18 15:38 Monocytes # 0.4 K/mcL (0.0-1.3) 05/08/18 15:38 Eosinophils # 0.2 K/mcL (0.0-0.6) 05/08/18 15:38 Basophils # 0.0 K/mcL (0.0-0.2) 05/08/18 15:38 Sodium 137 mEq/L (136-145) 05/08/18 15:38 Potassium 4.3 mEq/L (3.5-5.1) 05/08/18 15:38 Chloride 104 mEq/L (98-107) 05/08/18 15:38 Carbon Dioxide 27 mEq/L (23-29) 05/08/18 15:38 BUN 45 mg/dL (8-23) H 05/08/18 15:38 Creatinine 1.25 mg/dL (0.60-1.20) H 05/08/18 15:38 Est GFR ( Amer) 50 (> 60) L 05/08/18 15:38 Est GFR (Non-Af Amer) 41 (> 60) L 05/08/18 15:38 BUN/Creatinine Ratio 36 (6-26) H 05/08/18 15:38 Glucose 117 mg/dL (70-105) H 05/08/18 15:38 Calculated Osmolality 297 (280-300) 05/08/18 15:38 Lactic Acid 0.7 mmol/L (0.5-2.2) 05/08/18 15:48 Calcium 9.6 mg/dL (8.6-10.3) 05/08/18 15:38 Magnesium 2.3 mg/dL (1.6-2.6) 05/08/18 15:38 Total Bilirubin 0.6 mg/dL (0.3-1.0) 05/08/18 15:38 Direct Bilirubin 0.1 mg/dL (0.0-0.2) 05/08/18 15:38 Indirect Bilirubin 0.5 mg/dL (0.0-1.2) 05/08/18 15:38 AST 15 Units/L (13-39) 05/08/18 15:38 ALT 9 Units/L (7-52) 05/08/18 15:38 Alkaline Phosphatase 60 Units/L (34-104) 05/08/18 15:38 Troponin I < 0.03 ng/mL (< 0.04) 05/08/18 15:38 Serum Total Protein 5.8 g/dL (6.4-8.9) L 05/08/18 15:38 Albumin 3.8 g/dL (3.5-5.7) 05/08/18 15:38 Globulin 2.0 g/dL (2.4-3.5) L 05/08/18 15:38 Albumin/Globulin Ratio 1.9 (1.1-2.2) 05/08/18 15:38 Lipase 9 Units/L (11-82) L 05/08/18 15:38 Urine Color Yellow (Yellow) 05/08/18 15:55 Urine Clarity Clear (Clear) 05/08/18 15:55 Urine pH 5.0 pH Units (5.0-8.0) 05/08/18 15:55 Ur Specific [place] 1.014 (1.010-1.025) 05/08/18 15:55 Urine Protein Negative mg/dL (Neg-Trace) 05/08/18 15:55 Urine Glucose (UA) Normal mg/dL (Normal) 05/08/18 15:55 Urine Ketones Negative mg/dL (Negative) 05/08/18 15:55 Urine Blood Negative (Negative) 05/08/18 15:55 Urine Nitrite Negative (Negative) 05/08/18 15:55 Urine Bilirubin Negative (Negative) 05/08/18 15:55 Urine Urobilinogen Normal mg/dL (Normal) 05/08/18 15:55 Ur Leukocyte Esterase Negative (Negative) 05/08/18 15:55 Ur Culture Indicated? NO (NO) 05/08/18 15:55 Laboratory Last Values WBC 4.4 K/mcL (4.3-11.1) 05/08/18 15:38 RBC 2.90 M/mcL (3.82-4.97) L 05/08/18 15:38 Hgb 8.9 g/dL (11.5-15.4) L 05/08/18 15:38 Hct 27.2 % (35.3-44.9) L 05/08/18 15:38 MCV 93.8 fL (83.0-100.0) 05/08/18 15:38 MCH 30.7 pg (28.0-33.3) 05/08/18 15:38 MCHC 32.7 g/dL (31.6-35.5) 05/08/18 15:38 RDW 13.1 % (11.5-14.5) 05/08/18 15:38 Plt Count 157 K/mcL (140-400) 05/08/18 15:38 MPV 9.3 fL (9.4-12.4) L 05/08/18 15:38 Immature Gran % 0.5 % (0-4) 05/08/18 15:38 Seg Neutrophils % 63.1 % 05/08/18 15:38 Lymphocytes % 23.2 % 05/08/18 15:38 Monocytes % 9.3 % 05/08/18 15:38 Eosinophils % 3.4 % 05/08/18 15:38 Basophils % 0.5 % 05/08/18 15:38 Neutrophils # 2.8 K/mcL (1.6-8.9) 05/08/18 15:38 Lymphocytes # 1.0 K/mcL (0.6-4.6) 05/08/18 15:38 Monocytes # 0.4 K/mcL (0.0-1.3) 05/08/18 15:38 Eosinophils # 0.2 K/mcL (0.0-0.6) 05/08/18 15:38 Basophils # 0.0 K/mcL (0.0-0.2) 05/08/18 15:38 Sodium 137 mEq/L (136-145) 05/08/18 15:38 Potassium 4.3 mEq/L (3.5-5.1) 05/08/18 15:38 Chloride 104 mEq/L (98-107) 05/08/18 15:38 Carbon Dioxide 27 mEq/L (23-29) 05/08/18 15:38 BUN 45 mg/dL (8-23) H 05/08/18 15:38 Creatinine 1.25 mg/dL (0.60-1.20) H 05/08/18 15:38 Est GFR ( Amer) 50 (> 60) L 05/08/18 15:38 Est GFR (Non-Af Amer) 41 (> 60) L 05/08/18 15:38 BUN/Creatinine Ratio 36 (6-26) H 05/08/18 15:38 Glucose 117 mg/dL (70-105) H 05/08/18 15:38 Calculated Osmolality 297 (280-300) 05/08/18 15:38 Lactic Acid 0.7 mmol/L (0.5-2.2) 05/08/18 15:48 Calcium 9.6 mg/dL (8.6-10.3) 05/08/18 15:38 Magnesium 2.3 mg/dL (1.6-2.6) 05/08/18 15:38 Total Bilirubin 0.6 mg/dL (0.3-1.0) 05/08/18 15:38 Direct Bilirubin 0.1 mg/dL (0.0-0.2) 05/08/18 15:38 Indirect Bilirubin 0.5 mg/dL (0.0-1.2) 05/08/18 15:38 AST 15 Units/L (13-39) 05/08/18 15:38 ALT 9 Units/L (7-52) 05/08/18 15:38 Alkaline Phosphatase 60 Units/L (34-104) 05/08/18 15:38 Troponin I < 0.03 ng/mL (< 0.04) 05/08/18 15:38 Serum Total Protein 5.8 g/dL (6.4-8.9) L 05/08/18 15:38 Albumin 3.8 g/dL (3.5-5.7) 05/08/18 15:38 Globulin 2.0 g/dL (2.4-3.5) L 05/08/18 15:38 Albumin/Globulin Ratio 1.9 (1.1-2.2) 05/08/18 15:38 Lipase 9 Units/L (11-82) L 05/08/18 15:38 Urine Color Yellow (Yellow) 05/08/18 15:55 Urine Clarity Clear (Clear) 05/08/18 15:55 Urine pH 5.0 pH Units (5.0-8.0) 05/08/18 15:55 Ur Specific [place] 1.014 (1.010-1.025) 05/08/18 15:55 Urine Protein Negative mg/dL (Neg-Trace) 05/08/18 15:55 Urine Glucose (UA) Normal mg/dL (Normal) 05/08/18 15:55 Urine Ketones Negative mg/dL (Negative) 05/08/18 15:55 Urine Blood Negative (Negative) 05/08/18 15:55 Urine Nitrite Negative (Negative) 05/08/18 15:55 Urine Bilirubin Negative (Negative) 05/08/18 15:55 Urine Urobilinogen Normal mg/dL (Normal) 05/08/18 15:55 Ur Leukocyte Esterase Negative (Negative) 05/08/18 15:55 Ur Culture Indicated? NO (NO) 05/08/18 15:55 Result diagrams: 05/09/18 05:01 05/09/18 05:01 Lab Results 05/08/18 05/08/18 05/08/18 Range/Units 15:38 15:38 15:48 WBC 4.4 (4.3-11.1) K/mcL RBC 2.90 L (3.82-4.97) M/mcL Hgb 8.9 L (11.5-15.4) g/dL Hct 27.2 L (35.3-44.9) % MCV 93.8 (83.0-100.0) fL MCH 30.7 (28.0-33.3) pg MCHC 32.7 (31.6-35.5) g/dL RDW 13.1 (11.5-14.5) % Plt Count 157 (140-400) K/mcL MPV 9.3 L (9.4-12.4) fL Immature Gran % 0.5 (0-4) % Seg Neutrophils % 63.1 % Lymphocytes % 23.2 % Monocytes % 9.3 % Eosinophils % 3.4 % Basophils % 0.5 % Neutrophils # 2.8 (1.6-8.9) K/mcL Lymphocytes # 1.0 (0.6-4.6) K/mcL Monocytes # 0.4 (0.0-1.3) K/mcL Eosinophils # 0.2 (0.0-0.6) K/mcL Basophils # 0.0 (0.0-0.2) K/mcL Sodium 137 (136-145) mEq/L Potassium 4.3 (3.5-5.1) mEq/L Chloride 104 (98-107) mEq/L Carbon Dioxide 27 (23-29) mEq/L BUN 45 H (8-23) mg/dL Creatinine 1.25 H (0.60-1.20) mg/dL Est GFR ( Amer) 50 L (> 60) Est GFR (Non-Af Amer) 41 L (> 60) BUN/Creatinine Ratio 36 H (6-26) Glucose 117 H (70-105) mg/dL Calculated Osmolality 297 (280-300) Lactic Acid 0.7 (0.5-2.2) mmol/L Calcium 9.6 (8.6-10.3) mg/dL Magnesium 2.3 (1.6-2.6) mg/dL Total Bilirubin 0.6 (0.3-1.0) mg/dL Direct Bilirubin 0.1 (0.0-0.2) mg/dL Indirect Bilirubin 0.5 (0.0-1.2) mg/dL AST 15 (13-39) Units/L ALT 9 (7-52) Units/L Alkaline Phosphatase 60 (34-104) Units/L Troponin I < 0.03 (< 0.04) ng/mL Serum Total Protein 5.8 L (6.4-8.9) g/dL Albumin 3.8 (3.5-5.7) g/dL Globulin 2.0 L (2.4-3.5) g/dL Albumin/Globulin Ratio 1.9 (1.1-2.2) Lipase 9 L (11-82) Units/L Urine Color (Yellow) Urine Clarity (Clear) Urine pH (5.0-8.0) pH Units Ur Specific [place] (1.010-1.025) Urine Protein (Neg-Trace) mg/dL Urine Glucose (UA) (Normal) mg/dL Urine Ketones (Negative) mg/dL Urine Blood (Negative) Urine Nitrite (Negative) Urine Bilirubin (Negative) Urine Urobilinogen (Normal) mg/dL Ur Leukocyte Esterase (Negative) Ur Culture Indicated? (NO) Stool Occult Bld Scrn (Negative) 05/08/18 05/08/18 Range/Units 15:55 18:10 WBC (4.3-11.1) K/mcL RBC (3.82-4.97) M/mcL Hgb (11.5-15.4) g/dL Hct (35.3-44.9) % MCV (83.0-100.0) fL MCH (28.0-33.3) pg MCHC (31.6-35.5) g/dL RDW (11.5-14.5) % Plt Count (140-400) K/mcL MPV (9.4-12.4) fL Immature Gran % (0-4) % Seg Neutrophils % % Lymphocytes % % Monocytes % % Eosinophils % % Basophils % % Neutrophils # (1.6-8.9) K/mcL Lymphocytes # (0.6-4.6) K/mcL Monocytes # (0.0-1.3) K/mcL Eosinophils # (0.0-0.6) K/mcL Basophils # (0.0-0.2) K/mcL Sodium (136-145) mEq/L Potassium (3.5-5.1) mEq/L Chloride (98-107) mEq/L Carbon Dioxide (23-29) mEq/L BUN (8-23) mg/dL Creatinine (0.60-1.20) mg/dL Est GFR ( Amer) (> 60) Est GFR (Non-Af Amer) (> 60) BUN/Creatinine Ratio (6-26) Glucose (70-105) mg/dL Calculated Osmolality (280-300) Lactic Acid (0.5-2.2) mmol/L Calcium (8.6-10.3) mg/dL Magnesium (1.6-2.6) mg/dL Total Bilirubin (0.3-1.0) mg/dL Direct Bilirubin (0.0-0.2) mg/dL Indirect Bilirubin (0.0-1.2) mg/dL AST (13-39) Units/L ALT (7-52) Units/L Alkaline Phosphatase (34-104) Units/L Troponin I (< 0.04) ng/mL Serum Total Protein (6.4-8.9) g/dL Albumin (3.5-5.7) g/dL Globulin (2.4-3.5) g/dL Albumin/Globulin Ratio (1.1-2.2) Lipase (11-82) Units/L Urine Color Yellow (Yellow) Urine Clarity Clear (Clear) Urine pH 5.0 (5.0-8.0) pH Units Ur Specific [place] 1.014 (1.010-1.025) Urine Protein Negative (Neg-Trace) mg/dL Urine Glucose (UA) Normal (Normal) mg/dL Urine Ketones Negative (Negative) mg/dL Urine Blood Negative (Negative) Urine Nitrite Negative (Negative) Urine Bilirubin Negative (Negative) Urine Urobilinogen Normal (Normal) mg/dL Ur Leukocyte Esterase Negative (Negative) Ur Culture Indicated? NO (NO) Stool Occult Bld Scrn Negative (Negative) - Radiology Data Radiology results reviewed: Yes I reviewed the patient's radiology results. Abdomen/Pelvis CT 05/08/18 15:38 IMPRESSION: 1. No acute intra-abdominal abnormality. 2. No acute intrapelvic abnormality. 3. Punctate nonobstructive right urolithiasis. 4. Fat containing ventral hernia. 5. Stable infrarenal abdominal aortic aneurysm measuring 3.5 cm. RECOMMENDATIONS: 3.5 cm AAA Recommend annual follow-up. Reference: J Vasc Surg 2009 Oct;50(4 Suppl):S2-49. D/ / Denis Blake MD / Denis Blake MD Interpreting Provider: Denis Blake MD Chest X-Ray 05/08/18 15:39 IMPRESSION: No acute cardiopulmonary disease. D/ / 05/08/2018 16:37:25 Scott Munoz MD / kendra Interpreting Provider: Scott Munoz MD Attestation Statement - Attestation Attestation: Mejia Rascon DO have provided [id number] time during the care of this patient. Detailed review the presentation, symptoms, medical history were discussed and reviewed with the advanced practice provider Nicole Mata PA-C/[id number]. Medical intervention labs and imaging studies were reviewed in detail. See full documentation of physical exam and course of care in the advanced practice provider's note. I agree with the determined course of care, medical intervention and disposition put forth by the advanced practice provider. See below documentation for changes or alterations in documentation.
[2018-05-08 16:02] LABS: Basophils % 0.5 %; Eosinophils # 0.2 K/mcL (0.0-0.6); Eosinophils % 3.4 %; Hematocrit 27.2 % (35.3-44.9); Hemoglobin 8.9 g/dL (11.5-15.4); Immature Granulocytes % 0.5 % (0-4); Lymphocytes % 23.2 %; Mean Corpuscular HGB Conc 32.7 g/dL (31.6-35.5); Mean Corpuscular Hemoglobin 30.7 pg (28.0-33.3); Mean Corpuscular Volume 93.8 fL (83.0-100.0); Mean Platelet Volume 9.3 fL (9.4-12.4); Monocytes # 0.4 K/mcL (0.0-1.3); Monocytes % 9.3 %; Neutrophils # 2.8 K/mcL (1.6-8.9); Platelet Count 157 K/mcL (140-400); Red Cell Distribution Width 13.1 % (11.5-14.5); Segmented Neutrophils % 63.1 %
[2018-05-08 16:20] LABS: Bilirubin,Urine Negative (Negative); Blood,Urine Negative (Negative); Clarity,Urine Clear (Clear); Color,Urine Yellow (Yellow); Glucose,Urine (UA) Normal (Normal); Ketones,Urine Negative (Negative); Leukocyte Esterase,Urine Negative (Negative); Nitrite,Urine Negative (Negative); Protein,Urine Negative (Neg-Trace); Specific Gravity,Urine 1.014 (1.010-1.025); Urobilinogen,Urine Normal (Normal)
[2018-05-08 16:23] LABS: Alanine Aminotransferase 9 Units/L (7-52); Albumin 3.8 g/dL (3.5-5.7); Albumin/Globulin Ratio 1.9 (1.1-2.2); Alkaline Phosphatase 60 Units/L (34-104); Aspartate Amino Transferase 15 Units/L (13-39); BUN/Creatinine Ratio 36 (6-26); Bilirubin,Direct 0.1 mg/dL (0.0-0.2); Bilirubin,Indirect 0.5 mg/dL (0.0-1.2); Bilirubin,Total 0.6 mg/dL (0.3-1.0); Blood Urea Nitrogen 45 mg/dL (8-23); Calcium 9.6 mg/dL (8.6-10.3); Carbon Dioxide 27 mEq/L (23-29); Chloride 104 mEq/L (98-107); Glucose 117 mg/dL (70-105); Lipase 9 Units/L (11-82); Magnesium 2.3 mg/dL (1.6-2.6); Osmolality,Calculated 297 (280-300); Potassium 4.3 mEq/L (3.5-5.1); Sodium 137 mEq/L (136-145); Total Protein 5.8 g/dL (6.4-8.9); Troponin I < 0.03 ng/mL (< 0.04); eGFR For Non-African Americans 41 (> 60)
--- NOTE | 2018-05-08 19:05 | Emergency Department Note ---
Disposition Clinical Impression: Acute electrocardiogram changes, Abdominal aortic aneurysm (AAA) 3.0 cm to 5.0 cm in diameter in female, TISH (acute kidney injury) Anemia Qualifiers: Anemia type: unspecified type Qualified Code(s): D64.9 - Anemia, unspecified Disposition: Admitted As Inpatient Condition: Fair Referrals: Gemma Willson CNP [Primary Care Provider] - Time of Disposition: 19:06 General Adult HPI - General Chief complaint: ED Weakness Stated complaint: Flu like symptoms Time Seen by Provider: 05/08/18 15:17 Source: patient, family Mode of arrival: private vehicle Limitations: no limitations - History of Present Illness Location: abdomen (LUQ, LLQ and epigastrium) Pain Scale: 6 Quality: other (cramping) Improves with: nothing Worsens with: eating Associated symptoms: Reports: cough (infrequent, dry), loss of appetite, malaise, shortness of breath, weakness ("All over"). Denies: confusion, chest pain, diaphoresis, fever/chills, headaches, nausea/vomiting, rash, seizure, syncope Treatments Prior to Arrival: none - Related Data Home Medications Medication Instructions Recorded Confirmed Atorvastatin [Lipitor] 40 mg PO HS 12/22/17 12/22/17 HYDROcodone/Acet 7.5/325 mg [[place] 2 tab PO TID PRN 12/22/17 12/22/17 7.5-325 mg] Isosorbide MONOnitrate (24 HR) 90 mg PO DAILY 12/22/17 12/22/17 [Imdur] Levothyroxine [Synthroid] 25 mcg PO 0630 12/22/17 12/22/17 Lisinopril [Zestril] 10 mg PO DAILY 12/22/17 12/22/17 Meloxicam 7.5 mg PO BID 12/22/17 12/22/17 Temazepam [Restoril] 30 mg PO HS 12/22/17 12/22/17 Previous Rx's Medication Instructions Recorded Aspirin 81 mg PO DAILY tab.chew 12/27/17 Docusate [Colace] 100 mg PO BID #60 capsule 12/27/17 Allergies Allergy/AdvReac Type Severity Reaction Status Date / Time No Known Allergies Allergy Verified 03/10/18 10:19 Constitutional: Reports: as per HPI, weakness. Denies: fever, chills Eyes: Denies: eye pain, eye discharge, vision change ENT ED: Reports: congestion. Denies: ear pain, throat pain, dysphagia Cardiovascular: Reports: as per HPI, dyspnea on exertion. Denies: chest pain, palpitations, orthopnea, edema, syncope Respiratory: Reports: as per HPI, cough, dyspnea. Denies: wheezes, hemoptysis, stridor, sputum production Gastrointestinal: Reports: as per HPI, abdominal pain. Denies: nausea, vomiting, diarrhea, constipation, hematemesis, melena, hematochezia Genitourinary: Reports: frequency. Denies: urgency, dysuria, hematuria, discharge Musculoskeletal: Denies: back pain, neck pain, joint swelling, arthralgia, myalgia Integumentary: Denies: rash, lesions, pruritus Neurological: Reports: weakness. Denies: headache, numbness, paresthesias, confusion, vertigo Endocrine: Reports: fatigue Hematological/Lymphatic: Denies: easy bleeding, easy bruising, lymphadenopathy Allergic/Immunologic: Denies: facial swelling, urticaria, itchy eyes Past Medical History - Past Medical History Medical history: Reports: atrial fibrillation, hypertension, other Surgical history: Reports: pacemaker/AICD, LE stent (s) Psychiatric history: Reports: no psych history - Social History Smoking Status: Never smoker Smokeless Tobacco Status: No Alcohol use: Reports: none Drug use: Reports: none Physical Exam - General Limitations: no limitations General appearance: alert, in no apparent distress Course Vital Signs Temperature 97.9 F 05/08/18 15:08 Pulse Rate 65 05/08/18 15:08 Respiratory Rate 20 05/08/18 15:08 Blood Pressure 103/57 05/08/18 15:08 O2 Sat by Pulse Oximetry 98 05/08/18 15:08 Temperature 97.9 F 05/08/18 15:20 Pulse Rate 64 05/08/18 18:09 Respiratory Rate 20 05/08/18 18:09 Blood Pressure 116/82 05/08/18 18:09 O2 Sat by Pulse Oximetry 100 05/08/18 18:09 Oxygen Delivery Oxygen Delivery Room Air Medical Decision Making - Lab Data Result diagrams: 05/08/18 15:38 05/08/18 15:38 Lab Results 05/08/18 05/08/18 05/08/18 Range/Units 15:38 15:38 15:48 WBC 4.4 (4.3-11.1) K/mcL RBC 2.90 L (3.82-4.97) M/mcL Hgb 8.9 L (11.5-15.4) g/dL Hct 27.2 L (35.3-44.9) % MCV 93.8 (83.0-100.0) fL MCH 30.7 (28.0-33.3) pg MCHC 32.7 (31.6-35.5) g/dL RDW 13.1 (11.5-14.5) % Plt Count 157 (140-400) K/mcL MPV 9.3 L (9.4-12.4) fL Immature Gran % 0.5 (0-4) % Seg Neutrophils % 63.1 % Lymphocytes % 23.2 % Monocytes % 9.3 % Eosinophils % 3.4 % Basophils % 0.5 % Neutrophils # 2.8 (1.6-8.9) K/mcL Lymphocytes # 1.0 (0.6-4.6) K/mcL Monocytes # 0.4 (0.0-1.3) K/mcL Eosinophils # 0.2 (0.0-0.6) K/mcL Basophils # 0.0 (0.0-0.2) K/mcL Sodium 137 (136-145) mEq/L Potassium 4.3 (3.5-5.1) mEq/L Chloride 104 (98-107) mEq/L Carbon Dioxide 27 (23-29) mEq/L BUN 45 H (8-23) mg/dL Creatinine 1.25 H (0.60-1.20) mg/dL Est GFR ( Amer) 50 L (> 60) Est GFR (Non-Af Amer) 41 L (> 60) BUN/Creatinine Ratio 36 H (6-26) Glucose 117 H (70-105) mg/dL Calculated Osmolality 297 (280-300) Lactic Acid 0.7 (0.5-2.2) mmol/L Calcium 9.6 (8.6-10.3) mg/dL Magnesium 2.3 (1.6-2.6) mg/dL Total Bilirubin 0.6 (0.3-1.0) mg/dL Direct Bilirubin 0.1 (0.0-0.2) mg/dL Indirect Bilirubin 0.5 (0.0-1.2) mg/dL AST 15 (13-39) Units/L ALT 9 (7-52) Units/L Alkaline Phosphatase 60 (34-104) Units/L Troponin I < 0.03 (< 0.04) ng/mL Serum Total Protein 5.8 L (6.4-8.9) g/dL Albumin 3.8 (3.5-5.7) g/dL Globulin 2.0 L (2.4-3.5) g/dL Albumin/Globulin Ratio 1.9 (1.1-2.2) Lipase 9 L (11-82) Units/L Urine Color (Yellow) Urine Clarity (Clear) Urine pH (5.0-8.0) pH Units Ur Specific [place] (1.010-1.025) Urine Protein (Neg-Trace) mg/dL Urine Glucose (UA) (Normal) mg/dL Urine Ketones (Negative) mg/dL Urine Blood (Negative) Urine Nitrite (Negative) Urine Bilirubin (Negative) Urine Urobilinogen (Normal) mg/dL Ur Leukocyte Esterase (Negative) Ur Culture Indicated? (NO) Stool Occult Bld Scrn (Negative) 05/08/18 05/08/18 Range/Units 15:55 18:10 WBC (4.3-11.1) K/mcL RBC (3.82-4.97) M/mcL Hgb (11.5-15.4) g/dL Hct (35.3-44.9) % MCV (83.0-100.0) fL MCH (28.0-33.3) pg MCHC (31.6-35.5) g/dL RDW (11.5-14.5) % Plt Count (140-400) K/mcL MPV (9.4-12.4) fL Immature Gran % (0-4) % Seg Neutrophils % % Lymphocytes % % Monocytes % % Eosinophils % % Basophils % % Neutrophils # (1.6-8.9) K/mcL Lymphocytes # (0.6-4.6) K/mcL Monocytes # (0.0-1.3) K/mcL Eosinophils # (0.0-0.6) K/mcL Basophils # (0.0-0.2) K/mcL Sodium (136-145) mEq/L Potassium (3.5-5.1) mEq/L Chloride (98-107) mEq/L Carbon Dioxide (23-29) mEq/L BUN (8-23) mg/dL Creatinine (0.60-1.20) mg/dL Est GFR ( Amer) (> 60) Est GFR (Non-Af Amer) (> 60) BUN/Creatinine Ratio (6-26) Glucose (70-105) mg/dL Calculated Osmolality (280-300) Lactic Acid (0.5-2.2) mmol/L Calcium (8.6-10.3) mg/dL Magnesium (1.6-2.6) mg/dL Total Bilirubin (0.3-1.0) mg/dL Direct Bilirubin (0.0-0.2) mg/dL Indirect Bilirubin (0.0-1.2) mg/dL AST (13-39) Units/L ALT (7-52) Units/L Alkaline Phosphatase (34-104) Units/L Troponin I (< 0.04) ng/mL Serum Total Protein (6.4-8.9) g/dL Albumin (3.5-5.7) g/dL Globulin (2.4-3.5) g/dL Albumin/Globulin Ratio (1.1-2.2) Lipase (11-82) Units/L Urine Color Yellow (Yellow) Urine Clarity Clear (Clear) Urine pH 5.0 (5.0-8.0) pH Units Ur Specific [place] 1.014 (1.010-1.025) Urine Protein Negative (Neg-Trace) mg/dL Urine Glucose (UA) Normal (Normal) mg/dL Urine Ketones Negative (Negative) mg/dL Urine Blood Negative (Negative) Urine Nitrite Negative (Negative) Urine Bilirubin Negative (Negative) Urine Urobilinogen Normal (Normal) mg/dL Ur Leukocyte Esterase Negative (Negative) Ur Culture Indicated? NO (NO) Stool Occult Bld Scrn Negative (Negative) Attestation Statement - Attestation Attestation: Mejia Rascon DO have provided [id number] time during the care of this patient. Detailed review the presentation, symptoms, medical history were discussed and reviewed with the advanced practice provide Nicole Mata PA-C/TEST MANAGER. Medical intervention labs and imaging studies were reviewed in detail. See full documentation of physical exam and course of care in the advanced practice provider's note. I agree with the determined course of care, medical intervention and disposition put forth by the advanced practice provider. See below documentation for changes or alterations in documentation. 77-year-old female presents to the emergency room for complaint of generalized malaise weakness and epigastric discomfort. Denies any fevers or chills. Denies any chest pain or shortness of breath. She does have a cardiac history with heart failure requiring pacemaker. Denies any nausea vomiting or diarrhea. No headache no vision change at this time. Patient has lab abnormalities including anemia and acute kidney injury. She also had an EKG was concerning for ST segment elevations in 23 aVF and reciprocal T-wave inversion in aVL. This EKG was reviewed with the manager recruitment Dr. mendez said this was not diagnostic for STEMI. Patient also did not have any chest pain. Patient had troponin was negative. Will be monitored in the inpatient setting for cardiac related etiology. Symptomatic control will be completed as well. Rectal examination was completed for occult testing. She does have a history of anemia. No other specific history of this at this time. Vital signs are stable. Patient is otherwise in no distress. Lengthy discussion was had at the bedside about the findings as well as recommendations. Patient is comfortable with admission process is completed for patient care, dehydration and generalized malaise, EKG changes. Physical exam on my evaluation is unremarkable. Lungs are clear heart is regular. Abdomen is soft nontender nondistended no guarding no rigidity no peritoneal symptoms. No other acute etiology at this point. No need for acute emergent intervention. Patient will be admitted. She has not had any chest pain while here. Troponin was negative. No other intervention required at this time. Patient will be admitted for continuation of care and observation. Hospitalist was contacted and they had no other concerns or issues. Patient will be monitored in emergency room until admission process is completed. See detailed documentation of the physical exam, medical intervention and medical decision-making and the advanced practice provider's note.
[2018-05-08] MEDS ORDERED: Naloxone 0.4 MG/ML INJ IVP PRN (20:20)
--- NOTE | 2018-05-08 20:40 | Internal Med History&Physical ---
Addendum entered and electronically signed by Marcos Contreras MD 05/09/18 07:23: I saw and evaluated the patient. I reviewed the residents note, performed my own physical examination and agree with findings and plan as documented in the residents note. Patient seen and examined on 05/08/18. Patient presented for weakness for the last few days. she also indicates that she has had unexplained weight loss over the last few weeks. Found to be slightly anemic, and had abnormal EKG. Does not appear to be a STEMI as per cardiology, they will be consulting this morning. Continue to monitor. Patient should have follow up outpatient for her weight loss. Original Note: Date of Encounter: 05/08/18 Time of Encounter: 20:24 Internal Medicine - H&P: HPI Chief complaint: Weakness, chest and abdominal discomfort Admitted From: Home Plans for Post Hospital Care: Home History of present illness: Ms. Mendez is a 77 year old female with PMHx significant for atrial fibrillation with pacemaker, hypothyroidism, hypertension, CAD s/p stents x 2, abdominal aortic aneurysm who presents with weakness, fatigue, and chest and abdominal discomfort that has worsened over the past 5 days. States that the day after Thanksgiving, she started feeling left-sided abdominal discomfort associated with weakness and fatigue. Additionally notes that she has had mucous in the back of her throat and has occasionally been coughing up sputum. Symptoms have persisted over the last 5 days, and today notes discomfort all over, but especially on the left side of her abdomen. Abdominal pain is described as constant, dull, achy, with occasional cramping rated 6/10 at worst. Pain is non-radiating, and worse after meals, but does not completely go away otherwise. Pt visited PCP today, and endorsed similar symptoms, along with 80-lb unintentional weight loss over the past 6 months, worsening of vision, and 'discomfort all over' pointing from her chest to her abdomen. Denies f krysta/chills, headaches, ear pain, congestion, chest pain, palpitations, SOB, vomiting, hematochezia, constipation, diarrhea, melena, dysuria. In the ED, workup was done. Pt was given 1 dose Tylenol for abdominal pain, IVF. CBC indicated anemia, and BMP indicated TISH; EKG showed changes from pr evious EKG with slight ST elevations in leads II, III, and avF. Findings were discussed with Dr. Felix who did not feel this was a STEMI, but cardiology will follow up in the AM. Additionally, CXR, UA, Flu swab, FOBT were negative. CT Abd/Pelvis w/o contrast showed stable abdominal aortic aneurysm. Initial Vitals: T = 97.9; HR = 65; RR = 20; BP = 103/57; spO2 = 98 on Room Air CBC: Hb/Hct = 8.9/27.2; otherwise within normal limits BMP: BUN/Cr = 45/1.25; otherwise within normal limits LFTs: Within normal Limits Trop: Negative Lactic Acid: 0.7 EKG: Atrial-ventricular dual paced rhythm. HR = 62. Regular Intervals. Slight ST elevations leads II, III, avF. CXR: No acute cardiopulmonary disease CT Abd/Pelvis w/out contrast: Punctate non-obstructive right urolithiasis; fat containing ventral hernia; stable infrarenal abdominal aortic aneurysm measuring 3.5cm; Otherwise No acute intra-abdominal abnormality; No acute intrapelvic abnormality Flu Swab: Negative UA: Negative FOBT: Negative Pt currently resting comfortably at bedside in no acute distress. Admitted for observation. Cardiology consultation in the AM. Past Med Surg Social Fam HX - Past Medical History Source: patient, old records reviewed Medical history: aortic aneurysm (Abdominal aortic Aneurysm), arthritis, atrial fibrillation, coronary artery disease (CAD s/p CT s/p stent placement x 2), hyperlipidemia, hypertension, myocardial infarction, thyroid disease (Hypothyroidism), other Psychiatric history: no psych history - Past Surgical History Surgical History: angioplasty/stent (Cardiac Stents x 2), hysterectomy, pacemaker/AICD Additional surgical history: cardiac stents x 2 - Social History Smoking Status: Never smoker Smokeless Tobacco Status: No Alcohol use: none Drug use: none - Family History Father Living Status: Hx Family Cancer: Yes (Stomach) Mother Living Status: Hx Family Cardiac Disorders: Yes Internal Medicine - H&P: Meds Atorvastatin [Lipitor] 40 mg PO HS 12/22/17 [History] HYDROcodone/Acet 7.5/325 mg [[place] 7.5-325 mg] 2 tab PO TID PRN 12/22/17 [History] Isosorbide MONOnitrate (24 HR) [Imdur] 90 mg PO DAILY 12/22/17 [History] Levothyroxine [Synthroid] 25 mcg PO 0630 12/22/17 [History] Lisinopril [Zestril] 10 mg PO DAILY 12/22/17 [History] Meloxicam 7.5 mg PO BID 12/22/17 [History] Temazepam [Restoril] 30 mg PO HS 12/22/17 [History] Aspirin 81 mg PO DAILY tab.chew 12/27/17 [Rx] Docusate [Colace] 100 mg PO BID #60 capsule 12/27/17 [Rx] Allergy/AdvReac Type Severity Reaction Status Date / Time No Known Allergies Allergy Verified 03/10/18 10:19 All Systems PM: A 10-system review of systems was performed and is negative for pertinent findings except as documented above in the HPI. - Constitutional Constitutional: fatigue, malaise, weight loss, other, no chills, no fever(s), no falls Additional comments: Decreased appetite; Unintentional weight loss - EENT Eyes: change in vision, no blurry vision Ears: no decreased hearing Nose, mouth and throat: post-nasal drip, no nasal congestion, no neck pain, no sinus pain, no sore throat - Cardiovascular Cardiovascular ROS IM: no chest pain, no dyspnea, no dyspnea on exertion, no edema, no irregular heart rhythm, no lightheadedness, no palpitations, no syncope - Respiratory Respiratory: cough, excessive phlegm production, no dyspnea, no hemoptysis, no dyspnea on exertion, no wheezing, no pain on inspiration - Gastrointestinal Gastrointestinal: abdominal pain, heartburn, nausea, no constipation, no diarrhea, no vomiting - Genitourinary Genitourinary: no dysuria - Musculoskeletal Musculoskeletal ROS IM: myalgias, no back pain, no neck pain - Integumentary Integumentary IM: no rash - Neurological Neurological ROS: no dizziness, no headache(s) - Psychiatric Psychiatric: change in appetite - Constitutional Vitals: Temp Pulse Resp BP Pulse Ox 97.7 F 93 16 140/64 96 05/08/18 19:23 05/08/18 19:23 05/08/18 19:23 05/08/18 19:23 05/08/18 19:23 General appearance: Present: cooperative, A&O X 3, pleasant, no acute distress, answers questions appropriately Exam: GEN: AOx3, NAD, resting comfortably at bedside HEENT: Atraumatic, Normocephalic; EOMI, PERRLA, mucous membranes moist, post- nasal discharge visualized; no scleral icterus; no conjunctival pallor CARDIO: RRR, no murmurs, rubs, gallops RESP: CTAB, no wheezes, rales, rhonchi ABD: Soft, mild tenderness to palpation LUQ, LLQ; non-distended; bowel sounds present; no rebound or guarding; negative spann's sign NEURO: CN 2-12 intact; no focal deficits; AOx3 EXT: No Lower extremity edema; no rashes Internal Med - H&P Results - Labs CBC & Chem 7: 05/08/18 15:38 05/08/18 15:38 Labs: Short CBC 05/08/18 Range/Units 15:38 WBC 4.4 (4.3-11.1) K/mcL Hgb 8.9 L (11.5-15.4) g/dL Hct 27.2 L (35.3-44.9) % Plt Count 157 (140-400) K/mcL Neutrophils # 2.8 (1.6-8.9) K/mcL BMP 05/08/18 15:38 Sodium 137 Potassium 4.3 Chloride 104 Carbon Dioxide 27 BUN 45 H Creatinine 1.25 H Glucose 117 H Calcium 9.6 Cardiac Enzymes 05/08/18 Range/Units 15:38 Troponin I < 0.03 (< 0.04) ng/mL Liver Function 05/08/18 Range/Units 15:38 Total Bilirubin 0.6 (0.3-1.0) mg/dL Direct Bilirubin 0.1 (0.0-0.2) mg/dL AST 15 (13-39) Units/L ALT 9 (7-52) Units/L Alkaline Phosphatase 60 (34-104) Units/L Albumin 3.8 (3.5-5.7) g/dL Urine 05/08/18 Range/Units 15:55 Urine Color Yellow (Yellow) Urine Clarity Clear (Clear) Urine pH 5.0 (5.0-8.0) pH Units Ur Specific [place] 1.014 (1.010-1.025) Urine Protein Negative (Neg-Trace) mg/dL Urine Glucose (UA) Normal (Normal) mg/dL - Impressions ITS Impressions Abdomen/Pelvis CT 05/08/18 15:38 IMPRESSION: 1. No acute intra-abdominal abnormality. 2. No acute intrapelvic abnormality. 3. Punctate nonobstructive right urolithiasis. 4. Fat containing ventral hernia. 5. Stable infrarenal abdominal aortic aneurysm measuring 3.5 cm. RECOMMENDATIONS: 3.5 cm AAA Recommend annual follow-up. Reference: J Vasc Surg 2009 Mar;50(4 Suppl):S2-49. D/ / Denis Blake MD / Denis Blake MD Interpreting Provider: Denis Blake MD Chest X-Ray 05/08/18 15:39 IMPRESSION: No acute cardiopulmonary disease. D/ / 05/08/2018 16:37:25 Scott Munoz MD / earnold Interpreting Provider: Scott Munoz MD - Assessment and plan (1) Acute electrocardiogram changes Current Visit: Yes Status: Acute Assessment and plan: Ms. Mendez is a 77 year old female with PMHx significant for atrial fibrillation with pacemaker, hypothyroidism, hypertension, CAD s/p stents x 2, abdominal aortic aneurysm who presents with weakness, fatigue, and chest and abdominal discomfort that has worsened over the past 5 days. Associated with weakness, fatigue, malaise. Denies chest pain, palpitations, nausea, vomiting, neck pain, arm pain. Hx CAD s/p CT s/p stenting x 2; Hx AFib s/p pacemaker, AICD PE: Pt resting comfortably in NAD; [id number], no murmurs, rubs, gallops Vitals hemodynamically Stable EKG: Atrial-ventricular dual paced rhythm. HR = 62. Regular Intervals. Slight ST elevations leads II, III, avF. Trop: Negative x 1 CXR: No acute cardiopulmonary disease Per consultation with Dr. Felix of cardiology, did not feel this was a STEMI, but cardiology will follow up in the AM. PLAN: Cardiology recommendations appreciated Cont cardiac monitoring Repeat EKG in the AM Trend troponins (2) TISH (acute kidney injury) Current Visit: Yes Status: Acute Assessment and plan: BUN/Cr = 45/1.25 UA: Negative S/p 1L bolus in the ED Vitals stable PLAN: 500cc bolus followed by maintenance fluids Avoid Nephrotoxic medications BMP in the AM Monitor vitals (3) Anemia Current Visit: Yes Status: Acute Assessment and plan: Pt c/o weakness, fatigue, malaise - flu swab negative, ua negative Hb/Hct = 8.9/27.2 Given 1L IVF in ED FOBT: Negative PLAN: Iron studies in the AM Cont IVF F/U Type and Screen Monitor vitals Qualifiers: Anemia type: unspecified type Qualified Code(s): D64.9 - Anemia, u nspecified (4) Abdominal aortic aneurysm (AAA) 3.0 cm to 5.0 cm in diameter in female Current Visit: Yes Status: Chronic Assessment and plan: Chronic Abdominal Aortic Aneurysm CT Abd/Pelvis w/out contrast: Stable infrarenal abdominal aortic aneurysm measuring 3.5cm PLAN: Advised annual follow-up of AAA (5) CAD (coronary artery disease) Current Visit: No Status: Chronic Assessment and plan: Hx CAD s/p CT s/p stenting x 2 EKG: Atrial-ventricular dual paced rhythm. HR = 62. Regular Intervals. Slig ht ST elevations leads II, III, avF. Trops: Neg x 1 PLAN: Monitor vitals Repeat EKG in the AM Cardiac monitoring Cardiology recommendations appreciated Cont home meds - Atorvastatin, imdur, lisinopril Qualifiers: Coronary Disease-Associated Artery/Lesion type: [place] artery [place] vs. transplanted heart: [place] heart Associated angina: without angina Qualified Code(s): I25.10 - Atherosclerotic heart disease of [place] coronary artery without angina pectoris (6) Hypertension Current Visit: No Status: Chronic Assessment and plan: Chronic HTN BP = 103/57 on admission Given 1L IVF in ED PLAN: Monitor BP Cont home meds - lisinopril Qualifiers: Hypertension type: essential hypertension Qualified Code(s): I10 - Essential (primary) hypertension (7) Hypothyroid Current Visit: No Status: Chronic Assessment and plan: Pt c/o weakness, fatigue, malaise PLAN: TSH in the AM Cont home med - levothyroxine Qualifiers: Hypothyroidism type: unspecified Qualified Code(s): E03.9 - Hypothyroidism, unspecified (8) DVT prophylaxis Current Visit: No Status: Acute Assessment and plan: Heparin SQ BID - Time Spent With Patient Total time spent is greater than 50% in coordination of care (as documented) at patient's floor/unit and/or counseling patient: less than 15 minutes
[2018-05-08] MEDS ORDERED: 0.9 % Sodium Chloride 500 ML IVC ONE (20:54)
[2018-05-08] MEDS: 0.9 % Sodium Chloride 1,000 ML IVC SCH (22:11)
[2018-05-08] MEDS ORDERED: Temazepam 15 MG CAPSULE PO SCH (22:15)
[2018-05-08] MEDS: *HR* HYDROcodone/Acet 7.5/325 mg TABLET PO PRN (23:50)
[2018-05-09 05:38] LABS: Basophils % 0.6 %; Eosinophils # 0.2 K/mcL (0.0-0.6); Eosinophils % 4.7 %; Hematocrit 25.3 % (35.3-44.9); Immature Granulocytes % 0.3 % (0-4); Lymphocytes % 30.7 %; Mean Corpuscular HGB Conc 31.6 g/dL (31.6-35.5); Mean Corpuscular Hemoglobin 29.9 pg (28.0-33.3); Mean Corpuscular Volume 94.4 fL (83.0-100.0); Monocytes # 0.3 K/mcL (0.0-1.3); Monocytes % 9.1 %; Neutrophils # 1.9 K/mcL (1.6-8.9); Platelet Count 135 K/mcL (140-400); Red Blood Count 2.68 M/mcL (3.82-4.97); Red Cell Distribution Width 13.1 % (11.5-14.5); Segmented Neutrophils % 54.6 %
[2018-05-09] MEDS: *HR* Heparin 5,000 UNIT/ML VIAL SQ SCH ×2 (05:55→06:17)
[2018-05-09 06:01] LABS: BUN/Creatinine Ratio 35 (6-26); Blood Urea Nitrogen 31 mg/dL (8-23); Calcium 8.8 mg/dL (8.6-10.3); Carbon Dioxide 26 mEq/L (23-29); Chloride 111 mEq/L (98-107); Glucose 96 mg/dL (70-105); Osmolality,Calculated 298 (280-300); Potassium 4.2 mEq/L (3.5-5.1); Sodium 141 mEq/L (136-145); Troponin I < 0.03 ng/mL (< 0.04); eGFR For Non-African Americans > 60 (> 60)
[2018-05-09 06:02] LABS: % Iron Saturation 8 % (15-50); Iron 22 mcg/dL (50-170); Transferrin 190 mg/dL (203-362)
[2018-05-09 06:14] LABS: Thyroid Stimulating Hormone 2.253 mcIU/mL (0.340-5.600)
[2018-05-09] MEDS ORDERED: Levothyroxine 25 MCG TABLET PO SCH (06:30)
[2018-05-09] MEDS: *HR* HYDROcodone/Acet 7.5/325 mg TABLET PO PRN (08:28)
--- NOTE | 2018-05-09 08:37 | Cardiology Consult Note ---
Addendum entered and electronically signed by Gildardo Felix MD 05/09/18 12:20: I examined this patient and my medical decision-making was reviewed with the Resident Physician. I agree with the documented findings, disposition and treatment plan as described except to the extent set forth below. A/P: Negative troponin Presentation more consistent with GI cause - 80lb unintentional weight loss, abdominal pain,, anemia Anemia CAD sp PCI sp PPM for tachybrady HTN Ruled out for NE, consider GI workup for symptoms and weight loss. Will sign off Thank you for the consult, Gildardo Felix MD [facility] Original Note: Date of Encounter: 05/09/18 Time of Encounter: 08:34 Assessment and Plan (1) Atypical chest pain Current Visit: Yes Status: Acute atypical chest pain CXR negative ECG shows paced rhythm troponin negativex3 patient denies chest pain plan: patient intially presented with epigastric pain. She has hx of GERD. pain started after thanksgiving meal and worsens with meal. She also has a drop in her hgb from 11 to 8. This is unlikley to be ACS and no further cardiac testing/imaging is needed. Will give patient a GI cocktail. (2) CAD (coronary artery disease) Current Visit: No Status: Chronic Qualifiers: Coronary Disease-Associated Artery/Lesion type: [place] artery [place] vs. transplanted heart: [place] heart Associated angina: without angina Qualified Code(s): I25.10 - Atherosclerotic heart disease of [place] coronary artery without angina pectoris Discussion w patient/family: The assessment and plan as outlined above was discussed with the patient and/or family members who expressed understanding and agreement. All questions were answered. Thank you for involving us in the care of your patient. Please call with any questions. History of Present Illness Consult date: 05/09/18 Consult reason: abnormal ecg Chief complaint: abdominal pain History of present illness: Ms. Mendez is a 77 year old female hx of CAD, s/p pCI, BIV pacemaker for tachy- jing syndrome presented with cc of abdominal pain located in the epigastric region with radiation to the chest that started last and has been constant, sharp, worsens with position change without associated sob, diaphoresis. Reports nausea but denies vomiting. She also has thick mucus p roduction. Patients pain is worse after meals. Patient continues to have epigastric pain today but denies chest pain. She denies hematocheiza and melena. She is on meloxicam for chronic pain from arthritis. She is not on a blood thinner. Past Med Surg Social Fam HX - Past Medical History Medical history: atrial fibrillation, hypertension, other Additional medical history: heart problems Psychiatric history: no psych history - Past Surgical History Surgical History: pacemaker/AICD, LE stent (s) Additional surgical history: cardiac stents x 2 - Social History Smoking Status: Never smoker Smokeless Tobacco Status: No Alcohol use: none Drug use: none - Family History Father Living Status: Hx Family Cancer: Yes (Stomach) Mother Living Status: Hx Family Cardiac Disorders: Yes Medications and Allergies Atorvastatin [Lipitor] 40 mg PO HS 12/22/17 [History] HYDROcodone/Acet 7.5/325 mg [[place] 7.5-325 mg] 2 tab PO TID PRN 12/22/17 [History] Isosorbide MONOnitrate (24 HR) [Imdur] 90 mg PO DAILY 12/22/17 [History] Levothyroxine [Synthroid] 25 mcg PO 0630 12/22/17 [History] Lisinopril [Zestril] 10 mg PO DAILY 12/22/17 [History] Meloxicam 7.5 mg PO BID 12/22/17 [History] Temazepam [Restoril] 30 mg PO HS 12/22/17 [History] Aspirin 81 mg PO DAILY tab.chew 12/27/17 [Rx] Docusate [Colace] 100 mg PO QAM 05/08/18 [History] Allergy/AdvReac Type Severity Reaction Status Date / Time No Known Allergies Allergy Verified 05/08/18 22:41 All Systems Review: The remainder of the systems were reviewed and are negative Review of Systems: Constitutional: Denies fever, chills HEENT: Denies headache, trauma, blurry vision, eye discharge, ear pain, ear discharge neck pain, sore throat, rhinorrhea Heart: reports chest pain, Denies palpitations, LE edema Lungs: Denies shortness of breath cough Abdomen: Reports abdominal pain nausea Denies vomiting diarrhea MSK: Denies back pain, falls, joint pain Kidney: Denies dysuria, hematuria Skin: Denies rash, ulcers Neuro: Denies numbness and tingling Psych: denies anxiety, depression Physical Examination Vital Signs, Last 4 Hours Temp Pulse Resp BP Pulse Ox 11/29/18 07:58 98.4 F 66 16 110/59 95 General: Conversant, No Apparent Distress HEENT: Atraumatic, Normocephaly, Mucus Membranes Moist Neck: No JVD, Normal carotid pulses Cardiac: Reg Rate and Rhythm, Normal S1 and S2, No Murmur Lungs: Normal Breath Sounds, No Wheeze, Rales, Rhonchi Neuro: Alert and responsive, No focal deficits noted Abdomen: Soft, Other (epigastric tenderness) Skin: No rashes noted on visualized skin Musculoskeletal: No Chest Wall Tenderness Extremities: No Clubbing, No Cyanosis, No Edema, Normal Pulses Results 05/09/18 05:01 05/09/18 05:01 Lab Results 05/08/18 05/08/18 05/08/18 15:38 15:38 22:06 WBC 4.4 Hgb 8.9 L Hct 27.2 L Plt Count 157 Sodium 137 Potassium 4.3 Chloride 104 Carbon Dioxide 27 BUN 45 H Creatinine 1.25 H Glucose 117 H Calcium 9.6 Magnesium 2.3 Total Bilirubin 0.6 AST 15 ALT 9 Alkaline Phosphatase 60 Troponin I < 0.03 < 0.03 Lipase 9 L TSH 05/09/18 05/09/18 05/09/18 05:01 05:01 05:01 WBC 3.4 L Hgb 8.0 L Hct 25.3 L Plt Count 135 L Sodium 141 Potassium 4.2 Chloride 111 H Carbon Dioxide 26 BUN 31 H Creatinine 0.88 Glucose 96 Calcium 8.8 Magnesium Total Bilirubin AST ALT Alkaline Phosphatase Troponin I < 0.03 Lipase TSH 2.253 Consult Discharge Plan - Plan Referrals: Gemma Willson CNP [Primary Care Provider] -
[2018-05-09] MEDS: 0.9 % Sodium Chloride 1,000 ML IVC SCH (08:46)
[2018-05-09] MEDS ORDERED: GI Cocktail 40 ML EACH PO ONE (08:51)
[2018-05-09] MEDS ORDERED: Aspirin 81 MG TAB.CHEW PO SCH (09:00)
[2018-05-09] MEDS ORDERED: Isosorbide MONOnitrate (24 HR) 30 MG TAB.ER.24H PO SCH (09:00)
--- NOTE | 2018-05-09 09:11 | Electrocardiograph Report ---
[address] [place] [address] Test Date: 2018-05-08 Pat Name: Leisa Mendez Department: [id number] Room: 3B Gender: F [employer]: : 1940 Requested By: Nicole Mata Order Number: [id number] Reading MD: Christofer Stapleton Measurements Intervals Cando Rate: 62 P: 67 OR: 47 QRS: -24 QRSD: 129 T: 72 QT: 434 QTc: 441 Interpretive Statements Atrial-ventricular dual-paced rhythm Electronically Signed On 05-09-2018 9:10:10 EST by Christofer Stapleton
[2018-05-09 11:54] VITALS: BP 93/50
--- NOTE | 2018-05-09 12:56 | Discharge Summary ---
Orders not resulted at time of discharge: Pending orders 05/09/18 06:00 EKG [ECG 12 lead ECG] [ECG] AM 0600 Date of Encounter: 05/09/18 Time of Encounter: 12:54 - Discharge Diagnosis (1) Epigastric abdominal pain of unknown etiology Priority: Secondary Status: Acute Assessment and Plan: h/o GERD reports pain started after thanksgiving meal 3 gm decrease in HGB since 12/26 FOBT negative GI cocktail given will give carafate at d/c f/u with GI; web request pending f/u with PCP in 1-week please f/u regarding weight loss as well (2) Hypertension Priority: Secondary Status: Chronic Qualifiers: Hypertension type: essential hypertension Qualified Code(s): I10 - Essential (primary) hypertension (3) Hypothyroid Priority: Secondary Status: Chronic Qualifiers: Hypothyroidism type: unspecified Qualified Code(s): E03.9 - Hypothyroidism, unspecified (4) CAD (coronary artery disease) Priority: Secondary Status: Chronic Qualifiers: Coronary Disease-Associated Artery/Lesion type: [place] artery [place] vs. transplanted heart: [place] heart Associated angina: without angina Qualified Code(s): I25.10 - Atherosclerotic heart disease of [place] coronary artery without angina pectoris (5) Abdominal aortic aneurysm (AAA) 3.0 cm to 5.0 cm in diameter in female Priority: Secondary Status: Chronic Assessment and Plan: chronic per A/P CT--measuring 3.5x2.8cm f/u outpatient (6) Acute electrocardiogram changes Priority: Secondary Status: Acute Assessment and Plan: cardiology consulted does not appear to be acute ischemic changes per cardiology troponins negative x3 (7) Anemia Priority: Secondary Status: Acute Assessment and Plan: iron deficiency anemia 3 gram drop in HGB since 12/26 HGB 8.1 today Transferrin 190, Iron 22, and %sat 8 start iron supplementation 325mg BID f/u with PCP and GI to monitor Qualifiers: Anemia type: iron deficiency Qualified Code(s): D50.9 - Iron deficiency anemia, unspecified (8) TISH (acute kidney injury) Priority: Secondary Status: Acute Assessment and Plan: TISH resolved with fluid bolus (9) Atypical chest pain Priority: Secondary Status: Acute Assessment and Plan: atypical chest pain reporting epigastric pain that is dull and achy cardiology consulted and signed off; does not feel there is a cardiac cause of pain Troponins <0.03 x3 EKG per cardiology review does not have ischemic changes denies chest pain; reports pain is more epigastric and abdominal than anything else (10) Weight loss Priority: Secondary Status: Acute Assessment and Plan: Outpatient f/u web request for GI Hospital course: Ms. Mendez is a 77 year old female hx of CAD, s/p pCI, BIV pacemaker for tachy- jing syndrome who presented with epigastric abdominal pain with radiation to chest. She reported that the pain started started last after Thanksgiving and has been constant, sharp, worse with position change. She denies any associated diaphoresis or dyspnea. EKG per cardiology review without any ischemic changes. Serial troponins negative 3. Low risk for ACS. The patient was noted to have anemia on admission with hemoglobin of 8.9. Repeat hemoglobin 8.0. This is a 3 g drop since December 2017. Given her presentation with epigastric pain and 3 g drop of hemoglobin there is some concern for GI bleed. However, fecal occult blood was negative. She was found to have iron deficiency anemia. Epigastric pain most likely GI cause. Patient does have a history of GERD. Denies any prior history of ulcers. She is also reporting an 80 pound intentional weight loss throughout the last year. She informs me that I verified per chart review at one point in time they are considering colonoscopy however it did not appear that she got this. Given her epigastric pain, weight loss and anemia I have requested a GI appointment for further evaluation and assessment. She has been instructed to follow up with GI and PCP after discharge. Discharge discussed with: patient, nurse - Time Spent with Patient Total time spent providing and/or coordinating discharge services: Less than 30 minutes - Discharge Medications Prescriptions: Ferrous Sulfate [Iron] 325 mg PO BID 30 Days #60 tablet Sucralfate [Carafate] 1 gm PO QIDAC 30 Days #120 tablet Home Medications: Atorvastatin [Lipitor] 40 mg PO HS 12/22/17 [History] HYDROcodone/Acet 7.5/325 mg [[place] 7.5-325 mg] 2 tab PO TID PRN 12/22/17 [History] Isosorbide MONOnitrate (24 HR) [Imdur] 90 mg PO DAILY 12/22/17 [History] Levothyroxine [Synthroid] 25 mcg PO 0630 12/22/17 [History] Lisinopril [Zestril] 10 mg PO DAILY 12/22/17 [History] Meloxicam 7.5 mg PO BID 12/22/17 [History] Temazepam [Restoril] 30 mg PO HS 12/22/17 [History] Aspirin 81 mg PO DAILY tab.chew 12/27/17 [Rx] Docusate [Colace] 100 mg PO QAM 05/08/18 [History] Ferrous Sulfate [Iron] 325 mg PO BID 30 Days #60 tablet 05/09/18 [Rx] Omeprazole [PriLOSEC] 20 mg PO DAILY 30 Days #30 cap 05/09/18 [Rx] Sucralfate [Carafate] 1 gm PO QIDAC 30 Days #120 tablet 05/09/18 [Rx] Allergies/Adverse Reactions: Allergy/AdvReac Type Severity Reaction Status Date / Time No Known Allergies Allergy Verified 05/08/18 22:41 Date of admission: 05/08/18 18:12 Primary care physician: Gemma Willson CNP Consults: 05/08/18 20:52 Consult to Cardiology [CONS] Routine Comment: Consulting Provider: Cardiology Roland Reason for Consult: Abnormal EKG findings; Hx Afib with pacemaker/AICD; CAD s/p stenting x 2 Call Completed: Yes Discharging clinician: Malachi Qureshi Anticipated date of discharge: 05/09/18 - Constitutional Vitals: Temp Pulse Resp BP Pulse Ox 98.1 F 69 16 93/50 92 05/09/18 11:54 05/09/18 11:54 05/09/18 11:54 05/09/18 11:54 05/09/18 11:54 General appearance: Present: cooperative, A&O X 3, pleasant, no acute distress, answers questions appropriately Exam: SEE EXAM - Head Head exam: Present: atraumatic, normocephalic - Eye Eye exam: Present: PERRL, conjuntiva pink, sclera anicteric Pupils: Present: PERRL - Neck Neck exam general surgery: Present: supple, trachea midline. Absent: lymphadenopathy - Respiratory Respiratory exam: Present: CTAB. Absent: accessory muscle use, rales, rhonchi, wheezes - Cardiovascular Cardiovascular exam: Present: RRR, +S1, +S2. Absent: diastolic murmur, gallop, rubs, systolic murmur - GI/Abdominal GI/Abdominal exam: Present: normal bowel sounds, soft, tenderness (LUQ, RUQ), no peritoneal signs. Absent: distended - Extremities Exam Extremities exam: Present: warm, radial pulses palpable and symmetrical. Absent: calf tenderness, cyanotic, pedal edema - Neurological Exam Neurological exam: Present: CN II-XII intact, oriented X3, no focal deficits. Absent: pronater drift, facial droop, speech deficit - Skin Skin exam: Present: dry, intact - Patient Status Disposition: Home, Self-Care Condition: Fair Functional capacity at discharge: independent ambulation Overall status at discharge: patient is progressing back to baseline - Discharge Instructions Instructions: Anemia (GEN), Chest Pain (DC) Follow Up With: Gemma Willson [employer] [Primary Care Provider] - - Diet and Activity Activity: increase activity as tolerated, resume usual activities as tolerated Diet: diabetic diet, low fat, low cholesterol, low salt diet
== END 2018-05-09 14:56 | disposition home or self-care (01) ==
LOC: 3BNU 15:06 → EMEROOARM 15:06 → SUATTDRO 18:12 → 3BNU 19:12
PROVIDERS: ADMIT Internal Medicine Cardiovascular Disease; ATTEND Nurse Practitioner

== ENCOUNTER 2018-12-31 22:21 | Observation (INO) ==
[2018-12-31 23:17] LABS: Basophils % 0.4 %; Eosinophils % 0.8 %; Hematocrit 39.3 % (35.3-44.9); Hemoglobin 12.9 g/dL (11.5-15.4); Immature Granulocytes % 0.4 % (0-4); Lymphocytes # 0.2 K/mcL (0.6-4.6); Lymphocytes % 7.1 %; Mean Corpuscular HGB Conc 32.8 g/dL (31.6-35.5); Mean Corpuscular Volume 91.4 fL (83.0-100.0); Mean Platelet Volume 9.4 fL (9.4-12.4); Monocytes # 0.2 K/mcL (0.0-1.3); Monocytes % 7.5 %; Platelet Count 113 K/mcL (140-400); Red Cell Distribution Width 12.9 % (11.5-14.5); Segmented Neutrophils % 83.8 %; White Blood Count 2.6 K/mcL (4.3-11.1)
[2018-12-31 23:18] LABS: Neutrophils # 2.2 K/mcL (1.6-8.9)
[2018-12-31 23:25] LABS: Prothrombin Time 11.7 Seconds (9.4-12.1)
[2018-12-31 23:27] LABS: Activated Partial Thrombo Time 28.8 Seconds (26.0-36.0)
[2018-12-31 23:30] LABS: Alanine Aminotransferase 201 Units/L (7-52); Albumin 4.1 g/dL (3.5-5.7); Albumin/Globulin Ratio 1.8 (1.1-2.2); Alkaline Phosphatase 146 Units/L (34-104); Aspartate Amino Transferase 365 Units/L (13-39); BUN/Creatinine Ratio 25 (6-26); Bilirubin,Direct 0.3 mg/dL (0.0-0.2); Bilirubin,Indirect 0.8 mg/dL (0.0-1.2); Bilirubin,Total 1.1 mg/dL (0.3-1.0); Blood Urea Nitrogen 22 mg/dL (8-23); Calcium 9.5 mg/dL (8.6-10.3); Carbon Dioxide 28 mEq/L (23-29); Chloride 104 mEq/L (98-107); Globulin 2.3 g/dL (2.4-3.5); Glucose 143 mg/dL (70-105); Osmolality,Calculated 294 (280-300); Potassium 4.1 mEq/L (3.5-5.1); Sodium 139 mEq/L (136-145); Total Protein 6.4 g/dL (6.4-8.9); Troponin I < 0.03 ng/mL (< 0.04); eGFR For African Americans > 60 (> 60); eGFR For Non-African Americans > 60 (> 60)
--- NOTE | 2018-12-31 23:31 | Emergency Department Note ---
Disposition Clinical Impression: Ascending cholangitis, Liver function test abnormality, Bile duct, common, cystic dilatation Abdominal pain Qualifiers: Abdominal location: epigastric Qualified Code(s): R10.13 - Epigastric pain Fever Qualifiers: Encounter type: initial encounter Disposition: Admitted As Inpatient Condition: Fair Time of Disposition: 05:25 Chest Pain HPI - General Chief Complaint: ED Chest Pain Stated Complaint: CP/SoB/Vomiting Time Seen by Provider: 12/31/18 23:07 Source: patient, family Mode of arrival: ambulatory Limitations: no limitations Vital Signs Reviewed: Yes Nursing Notes Reviewed: Yes - History of Present Illness HPI Narrative: 78-year-old female presents to the emergency department for evaluation of abdominal pain specifically over the epigastric region. Initially reported she is having chest pain but actually his pain clinic coming up into her chest from her abdomen. She denies any ripping or tearing type pain. She has been nauseated. Pt complaint: chest pain Duration: intermittent Onset: during rest Severity: moderate Severity scale (1-10): 8 Improves with: nothing Worsens with: eating, movement (and palpation) Associated symptoms: Reports: nausea, vomiting (But daughter states more likely she spit up) Treatments prior to arrival chest pain: none - Related Data Home Medications Medication Instructions Recorded Confirmed Atorvastatin [Lipitor] 40 mg PO HS 12/22/17 01/01/19 HYDROcodone/Acet 7.5/325 mg [[place] 2 tab PO TID PRN 12/22/17 01/01/19 7.5-325 mg] Isosorbide MONOnitrate (24 HR) 90 mg PO DAILY 12/22/17 01/01/19 [Imdur] Levothyroxine [Synthroid] 25 mcg PO 0630 12/22/17 01/01/19 Temazepam [Restoril] 30 mg PO HS 12/22/17 01/01/19 Docusate [Colace] 100 mg PO QAM 05/08/18 01/01/19 Allergies Allergy/AdvReac Type Severity Reaction Status Date / Time No Known Allergies Allergy Verified 05/08/18 22:41 All systems ED: reviewed and negative except as stated. Constitutional: Denies: fever, chills, weakness, weight change Eyes: Denies: eye pain, eye discharge, vision change ENT ED: Denies: ear pain, throat pain, dental pain, hearing loss, epistaxis, congestion, dysphagia Cardiovascular: Denies: chest pain, palpitations, dyspnea on exertion, edema, syncope Respiratory: Denies: cough, dyspnea, wheezes, hemoptysis, stridor Gastrointestinal: Reports: abdominal pain, nausea. Denies: vomiting, diarrhea, constipation, hematemesis, melena, hematochezia Genitourinary: Denies: dysuria, frequency, hematuria, discharge Musculoskeletal: Denies: back pain, neck pain, arthralgia, myalgia Integumentary: Denies: rash, abrasion, lesions Neurological: Denies: headache, weakness, numbness, paresthesias, confusion, abnormal gait, vertigo Psychiatric: Denies: anxiety, depression, suicidal thoughts, homicidal thoughts, auditory hallucinations, visual hallucinations Endocrine: Denies: fatigue, heat or cold intolerance Hematological/Lymphatic: Denies: easy bleeding, easy bruising Allergic/Immunologic: Denies: facial swelling, urticaria Chest Pain PMH - Past Medical History Medical history: Reports: arthritis, atrial fibrillation, coronary artery disease, GERD, hyperlipidemia, hypertension, other Surgical history: Reports: hysterectomy, pacemaker/AICD Psychiatric history: Reports: no psych history - Social History Smoking Status: Never smoker Alcohol use: Reports: none Drug use: Reports: none Physical Exam - General Limitations: no limitations General appearance: alert, anxious - Head Head exam: atraumatic, normocephalic, normal inspection - Eye Eye exam: Present: normal appearance, PERRL, EOMI - ENT ENT exam: normal exam, normal oropharynx, mucous membranes moist - Neck Neck exam: Present: normal inspection, full ROM, trachea midline - Chest Chest inspection: Present: normal inspection, symmetric chest wall rise. Absent: tenderness - Respiratory Respiratory exam: Present: normal lung sounds bilaterally. Absent: respiratory distress, wheezes, accessory muscle use - Cardiovascular Cardiovascular exam: Present: regular rate, normal rhythm, normal heart sounds - Abdominal Exam Abdominal exam: Present: soft, tenderness (Epigastric and right upper quadrant tenderness). Absent: distention, guarding, rebound, rigidity - Extremities Exam Extremities exam: Present: normal inspection, full ROM, normal capillary refill. Absent: tenderness, pedal edema - Expanded Lower Extremity Exam Neurovascular/Tendon exam: Present: normal capillary refill. Absent: pulse deficit, motor deficit, sensory deficit, tendon deficit - Back Exam Back exam: Present: normal inspection, full ROM. Absent: tenderness, CVA tenderness (R), CVA tenderness (L) - Neurological Exam Neurological exam: Present: alert, oriented X3, CN II-XII intact - Psychiatric Psychiatric exam: Present: normal affect, normal mood. Absent: depressed - Skin Skin exam: Present: warm, dry, intact, normal color Course Course Narrative: Patient was placed in examination room. H&P is obtained her pain is more epigastric or right upper quadrant. Her troponin was normal but her LFTs were elevated bilirubin was mildly elevated after morphine she was pain-free. Patient was given a fluid bolus. Cultures were obtained. She did have a fever. Tylenol was given for her fever Chest x-ray showed no active process or free air. A CT scan which revealed inflammation and, bile duct dilatation and distention of the gallbladder. Previously her, bile duct measured 6 mm in May 2018 today at 16 mm In association with the fever and pain and CT scan scan finding I am concerned about is at ascending cholangitis and patient will require antibiotics cefepime was given to speak with the surgeon refrigeration system installer Dr. Almeida and he will consult. He did and there is concern for obstruction which could be from a stone or a mass. An ERCP will need to be obtained. Patient was moved to the hospitalist Dr Jiménez - Reevaluation(s) Reevaluation #1: Being medicated. Time: 23:40 Reevaluation #2: I discussed laboratory findings and CT results. Time: 00:50 Reevaluation #3: dvised them were still the hospitalist concerning admission but his feet with a general surgeon Dr Greenwood He will consult Time: 01:40 - Consultations Consultation #1: I spoke to the hospitalist once the phone call and page was returned The team was paged multiple times. Starting approximately 3:10 AM Time: 05:05 Vital Signs Temperature 101.7 F H 12/31/18 22:28 Pulse Rate 68 12/31/18 22:28 Respiratory Rate 15 12/31/18 22:28 Blood Pressure 155/74 12/31/18 22:28 O2 Sat by Pulse Oximetry 98 12/31/18 22:28 Temperature 98.4 F 01/01/19 06:50 Pulse Rate 61 01/01/19 06:50 Respiratory Rate 14 01/01/19 06:50 Blood Pressure 144/62 01/01/19 06:50 O2 Sat by Pulse Oximetry 93 01/01/19 06:50 Oxygen Delivery Oxygen Delivery Room Air Chest Pain - Medical Records Medical records reviewed: Yes I reviewed the patient's medical records. - Lab Data Lab results reviewed: Yes I reviewed the patient's lab results. Result diagrams: 01/01/19 07:05 01/01/19 07:05 Lab Results 12/31/18 12/31/18 12/31/18 Range/Units 22:45 22:45 22:45 WBC 2.6 L (4.3-11.1) K/mcL RBC 4.30 (3.82-4.97) M/mcL Hgb 12.9 (11.5-15.4) g/dL Hct 39.3 (35.3-44.9) % MCV 91.4 (83.0-100.0) fL MCH 30.0 (28.0-33.3) pg MCHC 32.8 (31.6-35.5) g/dL RDW 12.9 (11.5-14.5) % Plt Count 113 L (140-400) K/mcL MPV 9.4 (9.4-12.4) fL Immature Gran % 0.4 (0-4) % Seg Neutrophils % 83.8 % Lymphocytes % 7.1 % Monocytes % 7.5 % Eosinophils % 0.8 % Basophils % 0.4 % Neutrophils # 2.2 (1.6-8.9) K/mcL Lymphocytes # 0.2 L (0.6-4.6) K/mcL Monocytes # 0.2 (0.0-1.3) K/mcL Eosinophils # 0.0 (0.0-0.6) K/mcL Basophils # 0.0 (0.0-0.2) K/mcL Platelet Estimate Decreased L (Normal) PT 11.7 (9.4-12.1) Seconds INR 1.0 APTT 28.8 (26.0-36.0) Seconds Sodium 139 (136-145) mEq/L Potassium 4.1 (3.5-5.1) mEq/L Chloride 104 (98-107) mEq/L Carbon Dioxide 28 (23-29) mEq/L BUN 22 (8-23) mg/dL Creatinine 0.87 (0.60-1.20) mg/dL Est GFR ( Amer) > 60 (> 60) Est GFR (Non-Af Amer) > 60 (> 60) BUN/Creatinine Ratio 25 (6-26) Glucose 143 H (70-105) mg/dL Calculated Osmolality 294 (280-300) Calcium 9.5 (8.6-10.3) mg/dL Total Bilirubin 1.1 H (0.3-1.0) mg/dL Direct Bilirubin 0.3 H (0.0-0.2) mg/dL Indirect Bilirubin 0.8 (0.0-1.2) mg/dL AST 365 H (13-39) Units/L ALT 201 H (7-52) Units/L Alkaline Phosphatase 146 H (34-104) Units/L Troponin I < 0.03 (< 0.04) ng/mL Serum Total Protein 6.4 (6.4-8.9) g/dL Albumin 4.1 (3.5-5.7) g/dL Globulin 2.3 L (2.4-3.5) g/dL Albumin/Globulin Ratio 1.8 (1.1-2.2) Amylase 23 L (29-103) Units/L Lipase 12 (11-82) Units/L // Range/Units 00:17 WBC (4.3-11.1) K/mcL RBC (3.82-4.97) M/mcL Hgb (11.5-15.4) g/dL Hct (35.3-44.9) % MCV (83.0-100.0) fL MCH (28.0-33.3) pg MCHC (31.6-35.5) g/dL RDW (11.5-14.5) % Plt Count (140-400) K/mcL MPV (9.4-12.4) fL Immature Gran % (0-4) % Seg Neutrophils % % Lymphocytes % % Monocytes % % Eosinophils % % Basophils % % Neutrophils # (1.6-8.9) K/mcL Lymphocytes # (0.6-4.6) K/mcL Monocytes # (0.0-1.3) K/mcL Eosinophils # (0.0-0.6) K/mcL Basophils # (0.0-0.2) K/mcL Platelet Estimate (Normal) PT (9.4-12.1) Seconds INR APTT (26.0-36.0) Seconds Sodium (136-145) mEq/L Potassium (3.5-5.1) mEq/L Chloride (98-107) mEq/L Carbon Dioxide (23-29) mEq/L BUN (8-23) mg/dL Creatinine (0.60-1.20) mg/dL Est GFR ( Amer) (> 60) Est GFR (Non-Af Amer) (> 60) BUN/Creatinine Ratio (6-26) Glucose (70-105) mg/dL Calculated Osmolality (280-300) Calcium (8.6-10.3) mg/dL Total Bilirubin (0.3-1.0) mg/dL Direct Bilirubin (0.0-0.2) mg/dL Indirect Bilirubin (0.0-1.2) mg/dL AST (13-39) Units/L ALT (7-52) Units/L Alkaline Phosphatase (34-104) Units/L Troponin I (< 0.04) ng/mL Serum Total Protein (6.4-8.9) g/dL Albumin (3.5-5.7) g/dL Globulin (2.4-3.5) g/dL Albumin/Globulin Ratio (1.1-2.2) Amylase 23 L (29-103) Units/L Lipase 10 L (11-82) Units/L - Radiology Data Radiology results reviewed: Yes I reviewed the patient's radiology results. EXAMINATION: ONE XRAY VIEW OF THE CHEST 12/31/2018 8:14 pm COMPARISON: 09/25/2017 HISTORY: ORDERING SYSTEM PROVIDED HISTORY: chest pain FINDINGS: Cardial-pericardial silhouette is mildly enlarged but stable. Bipolar pacemaker is again noted. Mild atelectasis at the left lung base is seen. Lungs are otherwise clear. No pneumothorax. No free air. No acute bony abnormality. XR/XR chest 1V portable IMPRESSION: No acute abnormality detected. D/ / Wesley Chapin MD / Wesley Chapin MD Interpreting Provider: Wesley Chapin MD INATION: CT OF THE ABDOMEN AND PELVIS WITH CONTRAST 01/01/2019 12:39 am TECHNIQUE: CT of the abdomen and pelvis was performed with the administration of intravenous contrast. Multiplanar reformatted images are provided for review. Dose modulation, iterative reconstruction, and/or weight based adjustment of the mA/kV was utilized to reduce the radiation dose to as low as reasonably achievable. COMPARISON: Abdomen and pelvis CT dated 05/25/2018. HISTORY: ORDERING SYSTEM PROVIDED HISTORY: abd pain epigastric, fever, elevated LFT's 75 ml of isovue 370 FINDINGS: Lower Chest: Normal aeration of the lung bases. Small areas of linear atelectasis at the lung bases. Mild cardiomegaly. Wires of pacemaker noted in the right-sided heart chambers. Organs: The gallbladder is distended with diameter of 4.6 cm. Mild inflammation of the wall of the gallbladder and small pericholecystic fluid uncle are concerning for acute cholecystitis. Common bile duct is dilated to 16 mm, increased from [address] of 05/25/2018. Mild intrahepatic biliary ductal dilatation. Gallbladder distention and inflammation associated with intra and extrahepatic biliary ductal dilatation are most likely secondary to obstruction at the level of distal common bile duct. Liver, pancreas, spleen, bilateral adrenal glands are unremarkable. Main pancreatic duct is not distended. 4 punctate nonobstructive stones in the right kidney. No hydronephrosis. Few small bilateral renal cysts. GI/Bowel: Stomach, small and large bowel loops are grossly unremarkable. Pelvis: Urinary bladder is unremarkable. No lymphadenopathy. No soft tissue masses or abnormal fluid collections. Peritoneum/Retroperitoneum: No free intraperitoneal fluid or air. Infrarenal abdominal aortic aneurysm with diameter of 3.7 cm, unchanged from prior CT. Severe calcified plaque in the wall of abdominal aorta and its pelvic branches. No retroperitoneal lymphadenopathy. Bones/Soft Tissues: No lytic or blastic lesions in all visualized osseous structures. Small umbilical hernia contains mildly inflamed omental fat, overall not significantly changed from prior CT. CT/CT abd pelvis w iv no oral IMPRESSION: 1. Acute cholecystitis. Gallbladder distention and inflammation associated with intra and extrahepatic biliary ductal dilatation are most likely secondary to obstruction at the level of distal common bile duct. 2. Small umbilical hernia contains mildly inflamed omental fat, overall not significantly changed from prior CT. 3. Infrarenal abdominal aortic aneurysm with diameter of 3.7 cm, unchanged from prior CT. See below recommendations for follow-up. RECOMMENDATIONS: For management of fusiform AAA: 3.5-3.9 cm AAA, recommend follow-up every 2 years. * For management of saccular abdominal aortic aneurysms of any size, recommend vascular consultation. Note: For AAA enlargement of >0.5 cm in 6 months or >1 cm in 1 year, recommend vascular consultation. References: J Am Carlitos Radiol 2013; 10(10):789-794; J Vasc Surg. 2018; 67:2-77 D/ / Nelda Perdomo MD / Nelda Perdomo MD Interpreting Provider: Nelda Perdomo MD - EKG Data EKG attestation: Yes I reviewed and interpreted this EKG. EKG results narrative: EKG shows a paced rhythm at 69 bpm. No obvious acute changes. Negative [place] criteria
[2018-12-31] MEDS ORDERED: Morphine Sulfate 2 MG/ML SYRINGE IVP ONE (23:33)
[2018-12-31] MEDS ORDERED: Ondansetron 4 MG/2 ML VIAL IVP ONE (23:33)
[2018-12-31 23:39] LABS: Platelet Estimate Decreased (Normal)
[2018-12-31] MEDS ORDERED: Isovue-370 500 ML BOTTLE IVP ONE (23:48)
[2019-01-01 00:06] LABS: Amylase 23 Units/L (29-103); Lipase 12 Units/L (11-82)
[2019-01-01 00:45] LABS: Amylase 23 Units/L (29-103); Lipase 10 Units/L (11-82)
[2019-01-01] MEDS ORDERED: Cefepime HCl 2,000 MG in 0.9 % Sodium Chloride Mini Bag 100 ML IVPB ONE (02:17)
[2019-01-01] MEDS ORDERED: Piperacillin/Tazobactam 3.375 GM in 0.9 % Sodium Chloride Mini Bag 100 ML IVPB ONE (04:45)
[2019-01-01] MEDS ORDERED: Naloxone 0.4 MG/ML INJ IVP PRN (05:21)
[2019-01-01] MEDS ORDERED: Ondansetron 4 MG/2 ML VIAL IVP PRN (05:21)
[2019-01-01] MEDS ORDERED: *HR* OxyCODONE Immed Rel 5 MG TABLET PO PRN (05:21)
--- NOTE | 2019-01-01 06:12 | Internal Med History&Physical ---
Date of Encounter: 01/01/19 Time of Encounter: 04:45 Internal Medicine - H&P: HPI Chief complaint: abdominal pain, fever Admitted From: Emergency Dept Plans for Post Hospital Care: Home History of present illness: Ms. Mendez is a 78 year old female who presents with sudden onset epigastric/upper quadrant abdominal pain with associated nausea and vomiting. Symptoms started less than 24 hours ago. She has had subjective fevers and chills but no night sweats. She denies any diarrhea or any GI blood loss. Because of her symptoms, she came to ER for evaluation where she was found to have evidence of suspected acute cholecystitis and cholangitis. CT scan imaging reveals common duct dilatation. Laboratory studies reveal abnormal LFTs and leukopenia. The patient was admitted to hospitalist service with surgical consultation. Upon my assessment of the patient, patient is lying in bed comfortably. She has some mild and vague epigastric pain. She is well-perfused. Hemodynamically, her blood pressure is stable, and she is not tachycardic. I reviewed her labs and imaging studies. I agree she has ascending cholangitis and findings concerning for sepsis. She is not in shock and blood pressure is well preserved at this time. Blood cultures have been drawn, and she has received antibiotics. I am ordering lactate levels, and we will watch her closely hemodynamically. If she has an elevated lactate and/or becomes hemodynamically unstable, we will proceed with 30 ml/kg IVF bolus. Patient will likely need ERCP prior to considering surgical intervention. Dr. Greenwood has already been consulted by the ER from a surgical standpoint. Past Med Surg Social Fam HX - Past Medical History Attestation: Yes The following information was validated with the patient. Source: patient, old records reviewed Medical history: arthritis, atrial fibrillation, coronary artery disease, GERD, hyperlipidemia, hypertension Psychiatric history: no psych history - Past Surgical History Surgical History: angioplasty/stent, hysterectomy, pacemaker/AICD Additional surgical history: cardiac stents x 2 - Social History Smoking Status: Never smoker Smokeless Tobacco Status: No Alcohol use: none Drug use: none Current living situation: Home Activity Level: Independent ambulation Recent Out of Country Travel Within the Last 8 Weeks: No - Family History Father Living Status: Hx Family Cancer: Yes (Stomach) Mother Living Status: Hx Family Cardiac Disorders: Yes Internal Medicine - H&P: Meds Atorvastatin [Lipitor] 40 mg PO HS 12/22/17 [History] HYDROcodone/Acet 7.5/325 mg [[place] 7.5-325 mg] 2 tab PO TID PRN 12/22/17 [History] Isosorbide MONOnitrate (24 HR) [Imdur] 90 mg PO DAILY 12/22/17 [History] Levothyroxine [Synthroid] 25 mcg PO 0630 12/22/17 [History] Temazepam [Restoril] 30 mg PO HS 12/22/17 [History] Docusate [Colace] 100 mg PO QAM 05/08/18 [History] Allergy/AdvReac Type Severity Reaction Status Date / Time No Known Allergies Allergy Verified 05/08/18 22:41 - Constitutional Constitutional: chills, fever(s), no night sweats - EENT Eyes: no blurry vision, no change in vision Ears: no ear pain, no tinnitus Nose, mouth and throat: no nasal congestion, no sore throat - Cardiovascular Cardiovascular ROS IM: no chest pain, no dyspnea, no dyspnea on exertion, no lightheadedness, no orthopnea, no paroxysmal nocturnal dyspnea, no syncope - Respiratory Respiratory: no cough, no dyspnea, no chest congestion, no excessive phlegm production, no change in phlegm color - Gastrointestinal Gastrointestinal: abdominal pain, nausea, vomiting, no coffee ground emesis, no diarrhea, no heartburn, no hematemesis, no hematochezia, no melena - Genitourinary Genitourinary: no dysuria, no flank pain, no hematuria - Musculoskeletal Musculoskeletal ROS IM: no arthralgias, no back pain, no muscle cramps - Integumentary Integumentary IM: no rash, no jaundice - Neurological Neurological ROS: no disequilibrium, no dizziness, no focal weakness, no frequent falls, no headache(s) - Psychiatric Psychiatric: no anxiety, no depression - Endocrine Endocrine IM: no cold intolerance, no heat intolerance, no polydipsia, no polyphagia, no polyuria - Allergic/Immunologic Allergic/Immunologic: GI upset with certain foods, no wheezing - Constitutional Vitals: Temp Pulse Resp BP Pulse Ox 101.7 F H 58 18 133/88 98 12/31/18 22:28 01/01/19 05:12 01/01/19 05:12 01/01/19 05:12 01/01/19 05:12 General appearance: Present: cooperative, A&O X 3, pleasant, no acute distress, answers questions appropriately Exam: appears well perfused, no acute distress at this time - Head Head exam: Present: atraumatic, normal inspection - Eye Eye exam: Present: EOMI, PERRL. Absent: scleral icterus Pupils: Present: normal accommodation - ENT ENT exam: Present: mucous membranes dry, normal exam, normal oropharynx - Neck Neck exam general surgery: Present: full ROM, supple, trachea midline. Absent: lymphadenopathy, tenderness, nuchal rigidity, thyromegaly - Respiratory Respiratory exam: Present: CTAB. Absent: chest wall tenderness, rales, rhonchi, wheezes - Cardiovascular Cardiovascular exam: Present: distant heart sounds, RRR, +S1, +S2. Absent: diastolic murmur, systolic murmur - GI/Abdominal GI/Abdominal exam: Present: normal bowel sounds, tenderness (mild epigastric/RUQ pain), no peritoneal signs. Absent: guarding, hepatomegaly, mass, rebound, splenomegaly - Extremities Exam Extremities exam: Present: full ROM, normal capillary refill, warm, radial pulses palpable and symmetrical. Absent: calf tenderness, joint swelling, tenderness - Back Exam Back exam: Absent: CVA tenderness (L), CVA tenderness (R) - Neurological Exam Neurological exam: Present: alert, CN II-XII intact, oriented X3, no focal deficits, strengths equal and symetr throughout - Psychiatric Psychiatric exam: Present: normal affect, normal mood - Skin Skin exam: Present: dry, intact, warm. Absent: rash Internal Med - H&P Results - Labs CBC & Chem 7: 12/31/18 22:45 12/31/18 22:45 Labs: Short CBC 12/31/18 Range/Units 22:45 WBC 2.6 L (4.3-11.1) K/mcL Hgb 12.9 (11.5-15.4) g/dL Hct 39.3 (35.3-44.9) % Plt Count 113 L (140-400) K/mcL Neutrophils # 2.2 (1.6-8.9) K/mcL BMP 12/31/18 22:45 Sodium 139 Potassium 4.1 Chloride 104 Carbon Dioxide 28 BUN 22 Creatinine 0.87 Glucose 143 H Calcium 9.5 Cardiac Enzymes 12/31/18 Range/Units 22:45 Troponin I < 0.03 (< 0.04) ng/mL Liver Function 12/31/18 Range/Units 22:45 Total Bilirubin 1.1 H (0.3-1.0) mg/dL Direct Bilirubin 0.3 H (0.0-0.2) mg/dL AST 365 H (13-39) Units/L ALT 201 H (7-52) Units/L Alkaline Phosphatase 146 H (34-104) Units/L Albumin 4.1 (3.5-5.7) g/dL - Impressions ITS Impressions Chest X-Ray 12/31/18 23:01 IMPRESSION: No acute abnormality detected. D/ / Wesley Chapin MD / Wesley Chapin MD Interpreting Provider: Wesley Chapin MD Abdomen/Pelvis CT 01/01/19 00:00 IMPRESSION: 1. Acute cholecystitis. Gallbladder distention and inflammation associated with intra and extrahepatic biliary ductal dilatation are most likely secondary to obstruction at the level of distal common bile duct. 2. Small umbilical hernia contains mildly inflamed omental fat, overall not significantly changed from prior CT. 3. Infrarenal abdominal aortic aneurysm with diameter of 3.7 cm, unchanged from prior CT. See below recommendations for follow-up. RECOMMENDATIONS: For management of fusiform AAA: 3.5-3.9 cm AAA, recommend follow-up every 2 years. * For management of saccular abdominal aortic aneurysms of any size, recommend vascular consultation. Note: For AAA enlargement of >0.5 cm in 6 months or >1 cm in 1 year, recommend vascular consultation. References: J Am Carlitos Radiol 2013; 10(10):789-794; J Vasc Surg. 2018; 67:2-77 D/ / Nelda Perdomo MD / Nelda Perdomo MD Interpreting Provider: Nelda Perdomo MD - Diagnostic Studies CT scan - abdomen Status: image reviewed by me - Assessment and Plan (1) Sepsis Current Visit: Yes Status: Acute Assessment and plan: 1. Likely due to cholangitis/cholecystitis. 2. Blood cultures obtained in ER. 3. I ordered Lactate levels and will trend them. 4. BP preserved and patient is currently well perfused. If lactate is elevated and.or she becomes hemodynamically unstable, will initiate IVF bolus of 30 ml/kg; otherwise will continue IVF at maintenance dosing for now. Qualifiers: Sepsis type: sepsis due to unspecified organism Qualified Code(s): A41.9 - Sepsis, unspecified organism (2) Acute cholecystitis Current Visit: Yes Status: Acute Assessment and plan: 1. Surgery consult with Dr. Greenwood. 2. Antibiotics to cover GI bhavin. (3) Acute cholangitis Current Visit: Yes Status: Acute Assessment and plan: 1. Consult Dr. Dominguez. 2. Trend LFT's, amylase, lipase. (4) CAD (coronary artery disease) Current Visit: Yes Status: Chronic Assessment and plan: 1. Will order baseline EKG and monitor on telemetry. 2. Continue home meds as appropriate. 3. No symptoms of angina or CHF presently. 4. Monitor clinically. Qualifiers: Coronary Disease-Associated Artery/Lesion type: [place] artery [place] vs. transplanted heart: [place] heart Associated angina: without angina Qualified Code(s): I25.10 - Atherosclerotic heart disease of [place] coronary artery without angina pectoris (5) DVT prophylaxis Current Visit: Yes Status: Acute Assessment and plan: 1. Heparin SQ.
[2019-01-01] MEDS: 0.9 % Sodium Chloride 1,000 ML IVC SCH ×2 (06:37→18:42)
[2019-01-01] MEDS: *HR* Heparin 5,000 UNIT/ML VIAL SQ SCH ×2 (06:37→18:42)
[2019-01-01 07:23] LABS: Basophils % 0.2 %; Hematocrit 43.5 % (35.3-44.9); Hemoglobin 13.5 g/dL (11.5-15.4); Immature Granulocytes % 0.5 % (0-4); Lymphocytes # 0.3 K/mcL (0.6-4.6); Lymphocytes % 6.8 %; Mean Corpuscular Hemoglobin 29.1 pg (28.0-33.3); Mean Corpuscular Volume 93.8 fL (83.0-100.0); Mean Platelet Volume 9.5 fL (9.4-12.4); Monocytes # 0.3 K/mcL (0.0-1.3); Monocytes % 6.3 %; Platelet Count 109 K/mcL (140-400); Red Blood Count 4.64 M/mcL (3.82-4.97); Segmented Neutrophils % 86.2 %
[2019-01-01 07:41] LABS: INR 1.1; Prothrombin Time 12.4 Seconds (9.4-12.1)
[2019-01-01 07:43] LABS: Activated Partial Thrombo Time 29.7 Seconds (26.0-36.0)
[2019-01-01 07:47] LABS: Albumin/Globulin Ratio 1.6 (1.1-2.2); Bilirubin,Direct 0.5 mg/dL (0.0-0.2); Bilirubin,Indirect 1.1 mg/dL (0.0-1.2); Bilirubin,Total 1.6 mg/dL (0.3-1.0); Globulin 2.5 g/dL (2.4-3.5); Total Protein 6.5 g/dL (6.4-8.9)
[2019-01-01 07:49] LABS: Alanine Aminotransferase 243 Units/L (7-52); Albumin 4.1 g/dL (3.5-5.7); Albumin/Globulin Ratio 1.7 (1.1-2.2); Alkaline Phosphatase 141 Units/L (34-104); Aspartate Amino Transferase 334 Units/L (13-39); BUN/Creatinine Ratio 24 (6-26); Bilirubin,Total 1.6 mg/dL (0.3-1.0); Blood Urea Nitrogen 21 mg/dL (8-23); Calcium 9.9 mg/dL (8.6-10.3); Carbon Dioxide 30 mEq/L (23-29); Chloride 100 mEq/L (98-107); Globulin 2.4 g/dL (2.4-3.5); Glucose 126 mg/dL (70-105); Magnesium 2.1 mg/dL (1.6-2.6); Osmolality,Calculated 295 (280-300); Potassium 4.3 mEq/L (3.5-5.1); Sodium 140 mEq/L (136-145); Total Protein 6.5 g/dL (6.4-8.9); eGFR For African Americans > 60 (> 60); eGFR For Non-African Americans > 60 (> 60)
[2019-01-01] MEDS ORDERED: MetroNIDAZOLE 500 MG/100 ML 500 MG/100 ML BAG IVPB SCH (08:00)
[2019-01-01 08:03] LABS: Neutrophils # 3.5 K/mcL (1.6-8.9); White Blood Count 4.1 K/mcL (4.3-11.1)
--- NOTE | 2019-01-01 09:37 | Event Note ---
Date of Encounter: 01/01/19 Time of Encounter: 09:37 Patient seen and examined this morning. Admitted overnight. Still with abdominal pain but improving. Had fever during admission. Hemodynamically stable. Has abdominal pain on deep breathing. Usually is constipated. General: In no acute distress. Respiratory exam: no accessory muscle use. Crackles at Rt lung base. Cardiovascular exam: RRR, +S1, +S2. no murmur, gallop, rubs. GI/Abdominal exam: RUQ and epigastric tendernes, normal bowel sounds, soft, no peritoneal signs. Extremities exam: no pedal edema, pulses palpable in b/l lower extremities. no calf tenderness Neurological exam: CN II-XII intact, AO X3, no focal deficits. Skin exam: No skin rash Assessment Acute Sepsis likely from cholangitis/cholecystitis Chronic CAD Arthritis Plan - c/w empiric zosyn. dc metronidazole. Obstruction at level of distal CBD. lactic acid normal. Hemodynamically stabe. f/u blood cultures - c/w iVF. Surgery and GI consulted. Likely need ERCP. Increase deanne to 10 given her home opiate use. - trend LFT - Heparin SQ for DVT.
--- NOTE | 2019-01-01 10:30 | Gastroenterology Consult Note ---
<Elizabeth Guo - Last Filed: 01/01/19 10:24> Date of Encounter: 01/01/19 Time of Encounter: 09:35 - Assessment and plan (1) Acute cholangitis Current Visit: Yes Status: Acute Assessment and plan: CT shows CBD dilation, LFTs mildly elevated. Pt has abdominal tenderness and pain with movement. Vital signs are stable and no signs of sepsis at this time. pt may have clear liquids will plan for ERCP tomorrow. Procedure, risks and benefits discussed with the patient at length, she verbalizes understanding and is in agreement with the treatment plan. (2) Acute cholecystitis Current Visit: Yes Status: Acute Assessment and plan: Dr Greenwood was consulted from ER - Time Spent With Patient Total time spent is greater than 50% in coordination of care (as documented) at patient's floor/unit and/or counseling patient: GI History of Present Illness - Data of Consult Patient: known to practice within the last 3 years Consult date: 01/01/19 Requesting Physician: Kadi Mcdowell MD - Consult Narrative Reason for consult: cholangitis History of present illness: Ms. Mendez is a 78 year old female with a PMHX of arthritis, atrial fibrillation, coronary artery disease, GERD, hyperlipidemia, hypertension. She presented with sudden onset epigastric/upper quadrant abdominal pain with associated nausea and vomiting. Symptoms began 2 nights ago. She states she first thought the pain was a flare up of her gastric ulcer but the pain became severe and she was also having severe chills so she sought care at the ER. She reports epigastric pain that radiated under her breasts and around to her back. She denies any diarrhea, hematochezia, melena or hematemesis. CT scan imaging reveals gallbladder distention and inflammation and common bile duct dilatation of 16 mm. Laboratory studies reveal WBC 4.1, Platelets 109, t Bili 1.6, AST 33, and ALT 241, and ALK phos 138. She denies any previous episodes of this type of pain. Vital signs are stable. Anticoagulants: Subcutaneous heparin Procedures: EGD by Dr. Maddox 06/10/2018 showed benign-appearing esophageal stenosis, dilated. Gastritis. Nonbleeding gastric ulcer. Colonoscopy 06/10/2018 poor colon prep, stool in the sigmoid colon. NSAIDs: None Past Med Surg Social Fam HX - Past Medical History Medical history: arthritis, atrial fibrillation, coronary artery disease, GERD, hyperlipidemia, hypertension Additional medical history: heart problems Psychiatric history: no psych history - Past Surgical History Surgical History: angioplasty/stent, hysterectomy, pacemaker/AICD Additional surgical history: cardiac stents x 2 - Social History Smoking Status: Former smoker Smokeless Tobacco Status: No Alcohol use: none Drug use: none - Family History Father Living Status: Hx Family Cancer: Yes (Stomach) Mother Living Status: Hx Family Cardiac Disorders: Yes Review of Systems: GI: as per [place] GENERAL: fever and chills EYES: denies yellow discoloration ENT: denies pain with swallowing or difficulty swallowing CARDIO: denies chest pain, palpitations RESP: No Shortness of breath with exertion : denies change in color of urine NEURO: denies any weakness HEME: Denies any bruising MS: denies joint pain, joint swelling or back pain. DERM: denies rash or itching PSYCH: Denies history of anxiety or depression - Constitutional Vitals: Temp Pulse Resp BP Pulse Ox 98.4 F 61 14 144/62 93 01/01/19 06:50 01/01/19 06:50 01/01/19 06:50 01/01/19 06:50 01/01/19 06:50 Exam: CONSTITUTIONAL:alert, no acute distress.HEAD:normocephalic.EYES:no jaundice.NECK:no obvious swelling.HEART:regular rate and rhythm, no murmurs.LUNGS:bilateral good air entry.ABDOMEN:softly distended, very tender epigastric pain, no masses palpable, no organomegaly.RECTAL EXAM:Deferred.EXTREMITIES:no clubbing, cyanosis or edema.SKIN:mild pallor noted, no stigmata of chronic liver disease.NEUROLOGIC:no obvious focal defect. Results - Labs CBC & Chem 7: 01/01/19 07:05 01/01/19 07:05 Labs: Last Result 12/31/18 01/01/19 22:45 07:05 Calcium 9.5 9.9 Troponin I < 0.03 Entire Visit 12/31/18 12/31/18 12/31/18 22:45 22:45 22:45 Hgb 12.9 Hct 39.3 PT 11.7 Total Bilirubin 1.1 H AST 365 H ALT 201 H Amylase 23 L Lipase 12 01/01/19 01/01/19 01/01/19 00:17 07:05 07:05 Hgb 13.5 Hct 43.5 PT 12.4 H Total Bilirubin AST ALT Amylase 23 L Lipase 10 L 01/01/19 01/01/19 07:05 07:05 Hgb Hct PT Total Bilirubin 1.6 H 1.6 H AST 334 H 333 H ALT 243 H 241 H Amylase 20 L Lipase 9 L - ABG ABG results: PT/INR, D-dimer PT 12.4 Seconds (9.4-12.1) H 01/01/19 07:05 - Impressions Impressions Chest X-Ray 12/31/18 23:01 IMPRESSION: No acute abnormality detected. D/ / Wesley Chapin MD / Wesley Chapin MD Interpreting Provider: Wesley Chapin MD Abdomen/Pelvis CT 01/01/19 00:00 IMPRESSION: 1. Acute cholecystitis. Gallbladder distention and inflammation associated with intra and extrahepatic biliary ductal dilatation are most likely secondary to obstruction at the level of distal common bile duct. 2. Small umbilical hernia contains mildly inflamed omental fat, overall not significantly changed from prior CT. 3. Infrarenal abdominal aortic aneurysm with diameter of 3.7 cm, unchanged from prior CT. See below recommendations for follow-up. RECOMMENDATIONS: For management of fusiform AAA: 3.5-3.9 cm AAA, recommend follow-up every 2 years. * For management of saccular abdominal aortic aneurysms of any size, recommend vascular consultation. Note: For AAA enlargement of >0.5 cm in 6 months or >1 cm in 1 year, recommend vascular consultation. References: J Am Carlitos Radiol 2013; 10(10):789-794; J Vasc Surg. 2018; 67:2-77 D/ / Nelda Perdomo MD / Nelda Perdomo MD Interpreting Provider: Nelda Perdomo MD Consult Discharge Plan - Plan Referrals: Gemma Willson, ASSISTANT SECRETARY [Primary Care Provider] - <Gul,Deep - Last Filed: 01/01/19 17:41> Date of Encounter: 01/01/19 Time of Encounter: 14:00 - Time Spent With Patient Total time spent is greater than 50% in coordination of care (as documented) at patient's floor/unit and/or counseling patient: GI History of Present Illness - Data of Consult Requesting Physician: Kadi Mcdowell MD - Consult Narrative History of present illness: Ms. Mendez is a 78 year old female - Constitutional Vitals: Temp Pulse Resp BP Pulse Ox 98.5 F 61 14 131/61 94 01/01/19 14:24 01/01/19 14:24 01/01/19 14:24 01/01/19 14:24 01/01/19 14:24 Results - Labs CBC & Chem 7: 01/01/19 07:05 01/01/19 07:05 Labs: Last Result 01/01/19 07:05 Calcium 9.9 Entire Visit 01/01/19 01/01/19 01/01/19 07:05 07:05 07:05 Hgb 13.5 Hct 43.5 PT 12.4 H Total Bilirubin 1.6 H AST 334 H ALT 243 H Amylase Lipase 01/01/19 07:05 Hgb Hct PT Total Bilirubin 1.6 H AST 333 H ALT 241 H Amylase 20 L Lipase 9 L - ABG ABG results: PT/INR, D-dimer PT 12.4 Seconds (9.4-12.1) H 01/01/19 07:05 - Impressions Impressions Chest X-Ray 12/31/18 23:01 IMPRESSION: No acute abnormality detected. D/ / Wesley Chapin MD / Wesley Chapin MD Interpreting Provider: Wesley Chapin MD Abdomen/Pelvis CT 01/01/19 00:00 IMPRESSION: 1. Acute cholecystitis. Gallbladder distention and inflammation associated with intra and extrahepatic biliary ductal dilatation are most likely secondary to obstruction at the level of distal common bile duct. 2. Small umbilical hernia contains mildly inflamed omental fat, overall not significantly changed from prior CT. 3. Infrarenal abdominal aortic aneurysm with diameter of 3.7 cm, unchanged from prior CT. See below recommendations for follow-up. RECOMMENDATIONS: For management of fusiform AAA: 3.5-3.9 cm AAA, recommend follow-up every 2 years. * For management of saccular abdominal aortic aneurysms of any size, recommend vascular consultation. Note: For AAA enlargement of >0.5 cm in 6 months or >1 cm in 1 year, recommend vascular consultation. References: J Am Carlitos Radiol 2013; 10(10):789-794; J Vasc Surg. 2018; 67:2-77 D/ / Nelda Perdomo MD / Nelda Perdomo MD Interpreting Provider: Nelda Perdomo MD - Attending Attestation I have personally performed a face to face evaluation on this patient. I have reviewed and agree with the care plan. History and Exam by me shows: Patient seen. Complaining of right upper quadrant pain on palpation. On examination: Rtupper quadrant tenderness. A: Patient with acute cholecystitis and very dilated CBD with elevated LFTs concerning for CBD obstruction such as stone versus stricture. Recommendation: ERCP tomorrow
--- NOTE | 2019-01-01 11:21 | AcuteCare Surgery Consult Note ---
<Alisa Cisneros - Last Filed: 01/01/19 11:30> Date of Encounter: 01/01/19 Time of Encounter: 11:00 Assessment and Plan (1) Acute cholecystitis Current Visit: Yes Status: Acute IV antibiotics- Zosyn Supportive care IV fluids GI consulted for CBD dilation- plan for ERCP 01/02 Surgery will continue to follow along and plan for cholecystectomy in the upcoming days IS every 1 hour while awake GI/DVT prophylaxis Clear liquids, NPO after midnight for ERCP (2) Liver function test abnormality Current Visit: Yes Status: Acute Will continue to monitor (3) Bile duct, common, cystic dilatation Current Visit: Yes Status: Acute GI consulted for CBD dilation- plan for ERCP 01/02 Surgery will continue to follow along and plan for cholecystectomy in the upcoming days Clear liquid diet, NPO after midnight for ERCP History of Present Illness Consult date: 01/01/19 Reason for consult: other (Cholecystitis) Requesting physician: Ori Bright History of present illness: Ms. Mendez is a very pleasant 78 year old female who presented to the hospital with a 2 day history of abdominal pain. She states that the pain came on suddenly and is located in her epigastric area. She states that it radiates to her right side and around to her back. She has never experienced pain to this degree in the past. She states that she has had a gastric ulcer in the past that was similar but not this intense. She states that the pain has improved since admission. She admits to nausea but denies any vomiting. Denies any hematemesis or coffee-ground emesis. She denies any diarrhea or constipation. Denies any melena or hematochezia. She denies any fevers but states that she has been chilled. She states that she has no appetite. She admits to shortness of breath and chest pain secondary to the discomfort but states that this is improved with the improvement of her pain. The patient does have a history of atrial fibrillation and she states that she is not currently taking any blood thinners. She states that she was taking a baby aspirin but stopped this a while back. The patient does have concern for common bile duct dilation. Her liver enzymes are mildly elevated. Gastroenterology has been consulted and recommended an ERCP which will be complete and the next 24-48 hours. Past Med Surg Social Fam HX - Past Medical History Source: patient Medical history: arthritis, atrial fibrillation, coronary artery disease, GERD, hyperlipidemia, hypertension Additional medical history: heart problems Psychiatric history: no psych history - Past Surgical History Surgical History: angioplasty/stent, hysterectomy, pacemaker/AICD Additional surgical history: cardiac stents x 2 - Social History Smoking Status: Former smoker Smokeless Tobacco Status: No Alcohol use: none Drug use: none Current living situation: Home - Independent Activity Level: Independent ambulation - Family History Father Living Status: Hx Family Cancer: Yes (Stomach) Mother Living Status: Hx Family Cardiac Disorders: Yes Medications and Allergies Atorvastatin [Lipitor] 40 mg PO HS 12/22/17 [History] HYDROcodone/Acet 7.5/325 mg [[place] 7.5-325 mg] 2 tab PO TID PRN 12/22/17 [History] Isosorbide MONOnitrate (24 HR) [Imdur] 90 mg PO DAILY 12/22/17 [History] Levothyroxine [Synthroid] 25 mcg PO 0630 12/22/17 [History] Temazepam [Restoril] 30 mg PO HS 12/22/17 [History] Docusate [Colace] 100 mg PO QAM 05/08/18 [History] Allergy/AdvReac Type Severity Reaction Status Date / Time No Known Allergies Allergy Verified 05/08/18 22:41 Review of Systems All systems PM: reviewed and no additional remarkable complaints except as stated (in the HPI) All systems PM: The remainder of the systems were reviewed and are negative General Surgery Exam Initial Vital Signs Temp Pulse Resp BP Pulse Ox 101.7 F H 68 15 155/74 98 12/31/18 22:28 12/31/18 22:28 12/31/18 22:28 12/31/18 22:28 12/31/18 22:28 - General physical appearance well developed, well nourished, no distress - Eyes normal ocular movement - ENT normal mucosa, atraumatic, normocephalic - Neck trachea midline - Respiratory normal respiratory effort, clear to auscultation - Cardiovascular Cardiovascular exam: Present: RRR - Abdomen Abdomen general surgery: Present: bowel sounds present, soft, tender (mildly tender RUQ) Abdominal Tenderness: Present: RUQ - Integumentary Integumentary general surgery: Present: warm and dry - Psychiatric Psychiatric general surgery: Present: appropriate, oriented to person, oriented to place, oriented to time, speech is normal, memory intact Exam Initial Vital Signs Temp Pulse Resp BP Pulse Ox 101.7 F H 68 15 155/74 98 12/31/18 22:28 12/31/18 22:28 12/31/18 22:28 12/31/18 22:28 12/31/18 22:28 Results - Labs 01/01/19 07:05 01/01/19 07:05 Abnormal lab results WBC 4.1 K/mcL (4.3-11.1) L D 01/01/19 07:05 MCHC 31.0 g/dL (31.6-35.5) L 01/01/19 07:05 Plt Count 109 K/mcL (140-400) L 01/01/19 07:05 Lymphocytes # 0.3 K/mcL (0.6-4.6) L 01/01/19 07:05 Platelet Estimate Decreased (Normal) L 12/31/18 22:45 PT 12.4 Seconds (9.4-12.1) H 01/01/19 07:05 Carbon Dioxide 30 mEq/L (23-29) H 01/01/19 07:05 Glucose 126 mg/dL (70-105) H 01/01/19 07:05 Total Bilirubin 1.6 mg/dL (0.3-1.0) H 01/01/19 07:05 Total Bilirubin 1.6 mg/dL (0.3-1.0) H 01/01/19 07:05 Direct Bilirubin 0.5 mg/dL (0.0-0.2) H 01/01/19 07:05 AST 333 Units/L (13-39) H 01/01/19 07:05 AST 334 Units/L (13-39) H 01/01/19 07:05 ALT 241 Units/L (7-52) H 01/01/19 07:05 ALT 243 Units/L (7-52) H 01/01/19 07:05 Alkaline Phosphatase 138 Units/L (34-104) H 01/01/19 07:05 Alkaline Phosphatase 141 Units/L (34-104) H 01/01/19 07:05 Globulin 2.3 g/dL (2.4-3.5) L 12/31/18 22:45 Amylase 20 Units/L (29-103) L 01/01/19 07:05 Lipase 9 Units/L (11-82) L 01/01/19 07:05 Diabetes panel 12/31/18 01/01/19 01/01/19 Range/Units 22:45 07:05 07:05 Sodium 139 140 (136-145) mEq/L Potassium 4.1 4.3 (3.5-5.1) mEq/L Chloride 104 100 (98-107) mEq/L Carbon Dioxide 28 30 H (23-29) mEq/L BUN 22 21 (8-23) mg/dL Creatinine 0.87 0.87 (0.60-1.20) mg/dL Glucose 143 H 126 H (70-105) mg/dL Calcium 9.5 9.9 (8.6-10.3) mg/dL AST 365 H 334 H 333 H (13-39) Units/L ALT 201 H 243 H 241 H (7-52) Units/L Alkaline Phosphatase 146 H 141 H 138 H (34-104) Units/L Albumin 4.1 4.1 4.0 (3.5-5.7) g/dL Calcium panel 12/31/18 01/01/19 01/01/19 Range/Units 22:45 07:05 07:05 Calcium 9.5 9.9 (8.6-10.3) mg/dL Albumin 4.1 4.1 4.0 (3.5-5.7) g/dL Pituitary panel 12/31/18 01/01/19 Range/Units 22:45 07:05 Sodium 139 140 (136-145) mEq/L Potassium 4.1 4.3 (3.5-5.1) mEq/L Chloride 104 100 (98-107) mEq/L Carbon Dioxide 28 30 H (23-29) mEq/L BUN 22 21 (8-23) mg/dL Creatinine 0.87 0.87 (0.60-1.20) mg/dL Glucose 143 H 126 H (70-105) mg/dL Calcium 9.5 9.9 (8.6-10.3) mg/dL Adrenal panel 12/31/18 01/01/19 01/01/19 Range/Units 22:45 07:05 07:05 Sodium 139 140 (136-145) mEq/L Potassium 4.1 4.3 (3.5-5.1) mEq/L Chloride 104 100 (98-107) mEq/L Carbon Dioxide 28 30 H (23-29) mEq/L BUN 22 21 (8-23) mg/dL Creatinine 0.87 0.87 (0.60-1.20) mg/dL Glucose 143 H 126 H (70-105) mg/dL Calcium 9.5 9.9 (8.6-10.3) mg/dL Total Bilirubin 1.1 H 1.6 H 1.6 H (0.3-1.0) mg/dL AST 365 H 334 H 333 H (13-39) Units/L ALT 201 H 243 H 241 H (7-52) Units/L Alkaline Phosphatase 146 H 141 H 138 H (34-104) Units/L Albumin 4.1 4.1 4.0 (3.5-5.7) g/dL All other labs normal. - Imaging Additional studies: Chest X-Ray 12/31/18 23:01 IMPRESSION: No acute abnormality detected. D/ / Wesley Chapin MD / Wesley Chapin MD Interpreting Provider: Wesley Chapin MD Abdomen/Pelvis CT 01/01/19 00:00 IMPRESSION: 1. Acute cholecystitis. Gallbladder distention and inflammation associated with intra and extrahepatic biliary ductal dilatation are most likely secondary to obstruction at the level of distal common bile duct. 2. Small umbilical hernia contains mildly inflamed omental fat, overall not significantly changed from prior CT. 3. Infrarenal abdominal aortic aneurysm with diameter of 3.7 cm, unchanged from prior CT. See below recommendations for follow-up. RECOMMENDATIONS: For management of fusiform AAA: 3.5-3.9 cm AAA, recommend follow-up every 2 years. * For management of saccular abdominal aortic aneurysms of any size, recommend vascular consultation. Note: For AAA enlargement of >0.5 cm in 6 months or >1 cm in 1 year, recommend vascular consultation. References: J Am Carlitos Radiol 2013; 10(10):789-794; J Vasc Surg. 2018; 67:2-77 D/ / Nelda Perdomo MD / Nelda Perdomo MD Interpreting Provider: Nelda Perdomo MD Consult Discharge Plan - Plan Referrals: Gemma Willson, GREASE WORKER [Primary Care Provider] - - Attending Attestation For this encounter, I have reviewed the FINANCIAL CONTROLLER or PA documentation, treatment plan, and medical decision making; and I have had face to face time with this patient. <Pankaj Lund - Last Filed: 01/01/19 19:29> Date of Encounter: 01/01/19 Assessment and Plan (1) Acute cholecystitis Current Visit: Yes Status: Acute (2) Liver function test abnormality Current Visit: Yes Status: Acute (3) Bile duct, common, cystic dilatation Current Visit: Yes Status: Acute Review of Systems All systems PM: The remainder of the systems were reviewed and are negative General Surgery Exam Initial Vital Signs Temp Pulse Resp BP Pulse Ox 101.7 F H 68 15 155/74 98 12/31/18 22:28 12/31/18 22:28 12/31/18 22:28 12/31/18 22:28 12/31/18 22:28 Exam Initial Vital Signs Temp Pulse Resp BP Pulse Ox 101.7 F H 68 15 155/74 98 12/31/18 22:28 12/31/18 22:28 12/31/18 22:28 12/31/18 22:28 12/31/18 22:28 Results - Labs 01/01/19 07:05 01/01/19 07:05 Abnormal lab results WBC 4.1 K/mcL (4.3-11.1) L D 01/01/19 07:05 MCHC 31.0 g/dL (31.6-35.5) L 01/01/19 07:05 Plt Count 109 K/mcL (140-400) L 01/01/19 07:05 Lymphocytes # 0.3 K/mcL (0.6-4.6) L 01/01/19 07:05 Platelet Estimate Decreased (Normal) L 12/31/18 22:45 PT 12.4 Seconds (9.4-12.1) H 01/01/19 07:05 Carbon Dioxide 30 mEq/L (23-29) H 01/01/19 07:05 Glucose 126 mg/dL (70-105) H 01/01/19 07:05 Total Bilirubin 1.6 mg/dL (0.3-1.0) H 01/01/19 07:05 Total Bilirubin 1.6 mg/dL (0.3-1.0) H 01/01/19 07:05 Direct Bilirubin 0.5 mg/dL (0.0-0.2) H 01/01/19 07:05 AST 333 Units/L (13-39) H 01/01/19 07:05 AST 334 Units/L (13-39) H 01/01/19 07:05 ALT 241 Units/L (7-52) H 01/01/19 07:05 ALT 243 Units/L (7-52) H 01/01/19 07:05 Alkaline Phosphatase 138 Units/L (34-104) H 01/01/19 07:05 Alkaline Phosphatase 141 Units/L (34-104) H 01/01/19 07:05 Globulin 2.3 g/dL (2.4-3.5) L 12/31/18 22:45 Amylase 20 Units/L (29-103) L 01/01/19 07:05 Lipase 9 Units/L (11-82) L 01/01/19 07:05 Ur Specific [place] 1.028 (1.010-1.025) H 01/01/19 14:20 Urine Protein 30 mg/dL (Neg-Trace) H 01/01/19 14:20 Urine Microscopic RBC 3-5 per hpf (0-3) H 01/01/19 14:20 Ur Squamous Epith Cells Many per lpf (None-Few) H 01/01/19 14:20 Diabetes panel 12/31/18 01/01/19 01/01/19 Range/Units 22:45 07:05 07:05 Sodium 139 140 (136-145) mEq/L Potassium 4.1 4.3 (3.5-5.1) mEq/L Chloride 104 100 (98-107) mEq/L Carbon Dioxide 28 30 H (23-29) mEq/L BUN 22 21 (8-23) mg/dL Creatinine 0.87 0.87 (0.60-1.20) mg/dL Glucose 143 H 126 H (70-105) mg/dL Calcium 9.5 9.9 (8.6-10.3) mg/dL AST 365 H 334 H 333 H (13-39) Units/L ALT 201 H 243 H 241 H (7-52) Units/L Alkaline Phosphatase 146 H 141 H 138 H (34-104) Units/L Albumin 4.1 4.1 4.0 (3.5-5.7) g/dL Calcium panel 12/31/18 01/01/19 01/01/19 Range/Units 22:45 07:05 07:05 Calcium 9.5 9.9 (8.6-10.3) mg/dL Albumin 4.1 4.1 4.0 (3.5-5.7) g/dL Pituitary panel 12/31/18 01/01/19 Range/Units 22:45 07:05 Sodium 139 140 (136-145) mEq/L Potassium 4.1 4.3 (3.5-5.1) mEq/L Chloride 104 100 (98-107) mEq/L Carbon Dioxide 28 30 H (23-29) mEq/L BUN 22 21 (8-23) mg/dL Creatinine 0.87 0.87 (0.60-1.20) mg/dL Glucose 143 H 126 H (70-105) mg/dL Calcium 9.5 9.9 (8.6-10.3) mg/dL Adrenal panel 12/31/18 01/01/19 01/01/19 Range/Units 22:45 07:05 07:05 Sodium 139 140 (136-145) mEq/L Potassium 4.1 4.3 (3.5-5.1) mEq/L Chloride 104 100 (98-107) mEq/L Carbon Dioxide 28 30 H (23-29) mEq/L BUN 22 21 (8-23) mg/dL Creatinine 0.87 0.87 (0.60-1.20) mg/dL Glucose 143 H 126 H (70-105) mg/dL Calcium 9.5 9.9 (8.6-10.3) mg/dL Total Bilirubin 1.1 H 1.6 H 1.6 H (0.3-1.0) mg/dL AST 365 H 334 H 333 H (13-39) Units/L ALT 201 H 243 H 241 H (7-52) Units/L Alkaline Phosphatase 146 H 141 H 138 H (34-104) Units/L Albumin 4.1 4.1 4.0 (3.5-5.7) g/dL All other labs normal. - Attending Attestation patient seen and examined. i have reviewed all pertinent notes, imaging, notes. i have discussed the case with the FINANCIAL CONTROLLER in detail. I agree with the above assessment and plan.
[2019-01-01] MEDS: Pantoprazole 40 MG VIAL IVP SCH (12:03)
[2019-01-01] MEDS: Piperacillin/Tazobactam 3.375 GM in 0.9 % Sodium Chloride Mini Bag 100 ML IVPB SCH ×2 (12:04→21:24)
[2019-01-01] MEDS: *HR* OxyCODONE Immed Rel 5 MG TABLET PO PRN ×2 (12:22→19:28)
[2019-01-01 14:38] LABS: Bilirubin,Urine Negative (Negative); Blood,Urine Negative (Negative); Clarity,Urine Clear (Clear); Color,Urine Yellow (Yellow); Glucose,Urine (UA) Normal (Normal); Ketones,Urine Negative (Negative); Leukocyte Esterase,Urine Negative (Negative); Nitrite,Urine Negative (Negative); Protein,Urine 30 mg/dL (Neg-Trace); Specific Gravity,Urine 1.028 (1.010-1.025); Urobilinogen,Urine Normal (Normal)
[2019-01-01 14:39] LABS: Bacteria,Urine None Seen per hpf (None-Few); Hyaline Casts,Urine None Seen per lpf (None-Few); Squamous Epithelial Cell,Urine Many per lpf (None-Few); WBC,Urine 0-3 per hpf (0-3)
--- NOTE | 2019-01-01 17:46 | Electrocardiograph Report ---
[facility] compare[facility] Test Date: 2018-12-31 Pat Name: Leisa Mendez Department: EXAM2 Room: 3A12 Gender: F Gas Or Water Meter Installer: : 1940 Requested By: [id number] Order Number: [id number] Reading MD: Jose Manuel Eric Measurements Intervals [place] Rate: 69 P: 49 NH: 52 QRS: -4 QRSD: 113 T: -42 QT: 374 QTc: 401 Interpretive Statements Atrial-ventricular dual-paced rhythm No further analysis attempted due to paced rhythm Electronically Signed On 01-01-2019 17:44:46 EDT by Jose Manuel Eric
[2019-01-01 22:25] LABS: Acinetobacter baumannii by PCR Not Detected (Not Detect); Candida albicans by PCR Not Detected (Not Detect); Candida glabrata by PCR Not Detected (Not Detect); Candida krusei by PCR Not Detected (Not Detect); Candida parapsilosis by PCR Not Detected (Not Detect); Candida tropicalis by PCR Not Detected (Not Detect); Enterobacter cloacae Cmplx PCR Not Detected (Not Detect); Enterococcus by PCR Not Detected (Not Detect); Escherichia coli by PCR DETECTED (Not Detect); Klebsiella oxytoca by PCR Not Detected (Not Detect); Klebsiella pneumoniae by PCR Not Detected (Not Detect); Proteus by PCR Not Detected (Not Detect); Pseudomonas aeruginosa by PCR Not Detected (Not Detect); Serratia marcescens by PCR Not Detected (Not Detect); Staphylococcus aureus by PCR Not Detected (Not Detect); Staphylococcus by PCR Not Detected (Not Detect); Streptococcus agalactiae(B)PCR Not Detected (Not Detect); Streptococcus by PCR Not Detected (Not Detect); Streptococcus pneumoniae PCR Not Detected (Not Detect); Streptococcus pyogenes (A) PCR Not Detected (Not Detect); blaKPC Carbapenem-Resist Gene Not Detected (Not Detect); mecA Methicillin-Resist Gene Not Detected (Not Detect); vanA/B Vancomycin-Resist Genes Not Detected (Not Detect)
[2019-01-01] MEDS ORDERED: Temazepam 15 MG CAPSULE PO ONE (23:13)
--- NOTE | 2019-01-02 02:12 | Anesthesia Evaluation PreOp ---
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 Any Significant HX Other Medical History: Thyroid (hypo), Other (sepsis, cholangitis) Anesthesia History: No Prior Anesthetic Complications, Past Anesthesia (egd, colon, pacer) Alcohol Use: none Drug use: none Medications and Allergies Atorvastatin [Lipitor] 40 mg PO HS 12/22/17 [History] Isosorbide MONOnitrate (24 HR) [Imdur] 90 mg PO QAM 12/22/17 [History] Levothyroxine [Synthroid] 25 mcg PO 0630 12/22/17 [History] Docusate [Colace] 100 mg PO BID 05/08/18 [History] C,E,Zinc,Copper 11/Ttxkc3d/Lut [Ocuvite Adult 50 Plus Softgel] 1 cap PO DAILY 01/02/19 [History] HYDROcodone/Acet 10/325 mg [[place] 10-325 mg] 2 tab PO TID PRN 01/02/19 [History] Nystatin POWDER [Nystop] 1 appl TP BID PRN 01/02/19 [History] Omeprazole [PriLOSEC] 20 mg PO QPM 01/02/19 [History] Temazepam [Restoril] 30 mg PO HS 01/02/19 [History] Allergy/AdvReac Type Severity Reaction Status Date / Time No Known Allergies Allergy Verified 01/02/19 14:09 - Meds/Allergy Pre-op Review Medications Reviewed: Yes Allergies Reviewed: Yes Beta Blockers on Current Med List: No Anesthesia Results - Labs 01/01/19 07:05 01/01/19 07:05 - Imaging EKG: report reviewed (Interpretive Statements Atrial-ventricular dual-paced rhythm No further analysis attempted due to paced rhythm Electronically Signed On 01-01-2019 17:44:46 EDT by Jose Manuel Eric) Additional studies: 2017 TTE: Indications: Shortness of breath Impressions: Normal LV systolic function, LVEF 65%. Normal right ventricular size and function. A device lead was visualized in the right atrium and right ventricle. Mild-moderately dilated left atrium. Mildly dilated right atrium. Mild mitral regurgitation. Mild tricuspid regurgitation. Mild pulmonary hypertension. Estimated RVSP = 36 mmHg. Anesthesia Exam Vital Signs/O2 Sat, Most Current Temp Pulse Resp BP Pulse Ox 98.4 F 63 16 130/69 94 01/01/19 23:37 01/01/19 23:37 01/01/19 23:37 01/01/19 23:37 01/01/19 23:37 Weight: 82kg - HEENT Pupil (Motor): Pupils equal, EOMI Mallampati: II Teeth: Missing Anesthesia Assess/Plan ASA Score: 3 Anesthetic Plan: General Monitoring Plan: Standard Monitors Recovery Plan: PACU <Cedric Acuña - Last Filed: 01/02/19 14:17> Date of Encounter: 01/02/19 - Past History Cardiac History: Pacemaker/ICD Anesthesia Results - Labs 01/01/19 07:05 01/01/19 07:05 Anesthesia Exam Height: 5'1 Weight: 82kg 186 lbs NPO (# of Hours): MN Pain Scale: 0 - HEENT Denture Type: Upper: Complete Oral Opening: Greater than 3 (no upper dentition) - ELECTRICIAN SHIP LOC: Oriented ELECTRICIAN SHIP Motor: Normal RUE, Normal LUE, Normal RLE, Normal LLE, Normal Face ELECTRICIAN SHIP Sensory: Normal: RUE, LUE, RLE, LLE, Face - Cardiac Rhythm: Regular Murmur: None JVD: No Carotid Bruit: No - Pulmonary Breath Sounds: bilateral Clear Respiratory Effort: Symmetrical Anesthesia Assess/Plan ASA Score: 3 (Arrhythmia CAD HTN) Autologous Blood: No Monitoring Plan: Standard Monitors Recovery Plan: PACU (Discussed GA, agrees to proceed)
[2019-01-02] MEDS: *HR* Heparin 5,000 UNIT/ML VIAL SQ SCH ×2 (05:27→16:56)
[2019-01-02] MEDS: Levothyroxine 25 MCG TABLET PO SCH (05:38)
[2019-01-02] MEDS: Piperacillin/Tazobactam 3.375 GM in 0.9 % Sodium Chloride Mini Bag 100 ML IVPB SCH ×3 (05:49→23:04)
--- NOTE | 2019-01-02 08:42 | Internal Med Progress Note ---
Hospitalist Progress Note - Encounter Date of Encounter: 01/02/19 Time of Encounter: 08:42 - Subjective Interval History: Patient seen and examined this morning in the center. No acute overnight events. Denies any nausea vomiting or diarrhea. Abdominal pain controlled. Nothing by mouth for ERCP today. Afebrile and hemodynamically stable. - Exam Vitals: Temp Pulse Resp BP Pulse Ox 98.2 F 63 17 168/62 95 01/02/19 06:39 01/02/19 06:39 01/02/19 06:39 01/02/19 06:39 01/02/19 06:39 Exam: General: In no acute distress. Respiratory exam: no accessory muscle use. Crackles at Rt lung base. Cardiovascular exam: RRR, +S1, +S2. no murmur, gallop, rubs. GI/Abdominal exam: RUQ and epigastric tendernes, normal bowel sounds, soft, no peritoneal signs. Extremities exam: no pedal edema, pulses palpable in b/l lower extremities. no calf tenderness Neurological exam: CN II-XII intact, AO X3, no focal deficits. Skin exam: No skin rash - Assessment and Plan (1) CAD (coronary artery disease) Current Visit: Yes Status: Chronic (2) DVT prophylaxis Current Visit: Yes Status: Acute (3) Acute cholecystitis Current Visit: Yes Status: Acute (4) Acute cholangitis Current Visit: Yes Status: Acute (5) Sepsis Current Visit: Yes Status: Acute - Summary of Assessment and Plan Summary of Assessment and Plan: Assessment Acute Sepsis -resolved cholangitis/cholecystitis Chronic CAD Arthritis Plan - c/w empiric zosyn. Obstruction at level of distal CBD. Hemodynamically stabe. f/u final blood cultures 1/2 positive for Ecoli. - Surgery and GI consulted. ERCP today and then Lap memo with surgery after. c/w pain control - LFT stable - Heparin SQ for DVT. Internal Medicine: Result - Labs CBC & Chem 7: 01/01/19 07:05 01/01/19 07:05 Labs: Urine 01/01/19 Range/Units 14:20 Urine Color Yellow (Yellow) Urine Clarity Clear (Clear) Urine pH 8.0 (5.0-8.0) pH Units Ur Specific [place] 1.028 H (1.010-1.025) Urine Protein 30 H (Neg-Trace) mg/dL Urine Glucose (UA) Normal (Normal) mg/dL - ABG Interpretation ABG results: PT/INR, D-dimer PT 12.4 Seconds (9.4-12.1) H 01/01/19 07:05 Consult Discharge Plan - Plan Referrals: Gemma Willson, XU [Primary Care Provider] - (1) CAD (coronary artery disease) Qualifiers: Coronary Disease-Associated Artery/Lesion type: [place] artery [place] vs. transplanted heart: [place] heart Associated angina: without angina Qualified Code(s): I25.10 - Atherosclerotic heart disease of [place] coronary artery without angina pectoris (5) Sepsis Qualifiers: Sepsis type: sepsis due to unspecified organism Qualified Code(s): A41.9 - Sepsis, unspecified organism
--- NOTE | 2019-01-02 09:16 | AcuteCareSurgery Progress Note ---
Date of Encounter: 01/02/19 Time of Encounter: 07:00 - Assessment and Plan (1) Acute cholecystitis Current Visit: Yes Status: Acute IV abx and NPO. ERCP scheduled for today. Lap memo pending results of ERCP (2) Bile duct, common, cystic dilatation Current Visit: Yes Status: Acute IV abx and NPO. ERCP scheduled for today to evaluate for CBD dilation and nature of distal CBD obstruction. Lap memo pending results of ERCP (3) Hypertension Current Visit: No Status: Chronic stable; primary service to manage Qualifiers: Hypertension type: essential hypertension Qualified Code(s): I10 - Essential (primary) hypertension (4) Abdominal aortic aneurysm (AAA) 3.0 cm to 5.0 cm in diameter in female Current Visit: No Status: Chronic stable Subjective Patient reports: no new complaints, feels better, still having pain, pain is less, flatus, afebrile Narrative: NPO. Scheduled for ERCP today. Objective Vital Signs - Last 8 Hours Temp Pulse Resp BP Pulse Ox 01/02/19 06:39 98.2 F 63 17 168/62 95 01/02/19 03:00 98.1 F 61 16 155/67 96 Intake and Output 01/01/19 01/02/19 01/02/19 23:59 07:59 15:59 Intake Total 1340 / 1820 1100 / 1100 Output Total 0 / 0 100 / 100 Balance 1340 / 1820 1100 / 1000 -100 / 1000 Intake: IV Fluids 1100 / 1100 1100 / 1100 0.9 % Sodium Chloride 1,000 ML 1000 / 1000 1000 / 1000 @ 125 mls/hr IVC .Q8H ATUL Rx#: [id number] Zosyn 3.375 GM In 0.9 % Sodium 100 / 100 100 / 100 Chloride (Mini-Bag +) 100 ML @ 25 mls/hr IVPB Q8H ATUL Rx#: [id number] Oral 240 / 720 0 / 0 Output: Urine 0 / 0 100 / 100 Other: Meal Dinner Percent of Meal Consumed 0% # Voids 1 Weight 84.5 kg Blood Glucose* 85 Patient Weight 01/02/19 23:59 Weight 84.5 kg - General physical appearance no distress, moderate pain - Eyes PERRL, normal ocular movement - ENT no congestion, dry mucosa - Neck Neck exam: trachea midline, no venous distension - Respiratory normal respiratory effort, clear to auscultation - Cardiovascular Cardiovascular exam: Present: RRR. Absent: JVD - Abdomen Abdomen: Present: bowel sounds present, soft, tender. Absent: distended Abdominal Tenderness: RUQ - Neurologic CN 2-12 grossly intact, normal coordination - Musculoskeletal normal posture - Psychiatric oriented to time, oriented to person, oriented to place - Labs 01/01/19 07:05 01/01/19 07:05 Consult Discharge Plan - Plan Referrals: Gemma Willson, MAINTENANCE FITTER [Primary Care Provider] -
[2019-01-02] MEDS: Pantoprazole 40 MG VIAL IVP SCH (09:24)
[2019-01-02] MEDS ORDERED: Temazepam 15 MG CAPSULE PO PRN (09:34)
[2019-01-02] MEDS: *HR* OxyCODONE Immed Rel 5 MG TABLET PO PRN ×2 (09:40→19:47)
[2019-01-02] MEDS ORDERED: Dexamethasone 4 MG/ML VIAL ONE (13:17)
[2019-01-02] MEDS ORDERED: *HR* Midazolam HCl 2 MG/2 ML VIAL ONE (13:17)
[2019-01-02] MEDS ORDERED: Ondansetron 4 MG/2 ML VIAL ONE (13:17)
[2019-01-02] MEDS ORDERED: *HR* Succinylcholine 200 MG/10 ML VIAL IVP ONE (13:17)
[2019-01-02] MEDS ORDERED: *HR* FentaNYL (PF) 100 MCG/2 ML VIAL ONE (13:17)
[2019-01-02] MEDS ORDERED: Lidocaine -MPF 4% 5 ML AMPUL ONE (13:17)
[2019-01-02] MEDS ORDERED: Lidocaine -MPF 2% 2 ML VIAL ONE (13:17)
[2019-01-02] MEDS ORDERED: *HR* Propofol 200 MG/20 ML VIAL IVP ONE (13:17)
[2019-01-02] MEDS ORDERED: Indomethacin 50 MG SUPP.RECT RC ONE (15:16)
[2019-01-02] MEDS ORDERED: *HR* Labetalol 20 MG/4 ML SYRINGE IVP ONE (15:42)
[2019-01-02] MEDS ORDERED: *HR* Promethazine 25 MG/ML VIAL ONE (15:45)
[2019-01-02] MEDS ORDERED: hydrALAZINE 10 MG TABLET PO PRN (16:51)
[2019-01-03 04:11] LABS: Basophils % 0.3 %; Eosinophils % 0.3 %; Hematocrit 37.4 % (35.3-44.9); Immature Granulocytes % 0.6 % (0-4); Lymphocytes # 0.4 K/mcL (0.6-4.6); Lymphocytes % 12.6 %; Mean Corpuscular HGB Conc 32.1 g/dL (31.6-35.5); Mean Corpuscular Hemoglobin 30.2 pg (28.0-33.3); Mean Platelet Volume 10.2 fL (9.4-12.4); Monocytes # 0.3 K/mcL (0.0-1.3); Monocytes % 8.4 %; Neutrophils # 2.4 K/mcL (1.6-8.9); Platelet Count 119 K/mcL (140-400); Red Blood Count 3.98 M/mcL (3.82-4.97); Red Cell Distribution Width 12.4 % (11.5-14.5); Segmented Neutrophils % 77.8 %; White Blood Count 3.1 K/mcL (4.3-11.1)
[2019-01-03 04:29] LABS: BUN/Creatinine Ratio 19 (6-26); Blood Urea Nitrogen 16 mg/dL (8-23); Carbon Dioxide 26 mEq/L (23-29); Chloride 108 mEq/L (98-107); Glucose 100 mg/dL (70-105); Osmolality,Calculated 289 (280-300); Sodium 139 mEq/L (136-145); eGFR For African Americans > 60 (> 60); eGFR For Non-African Americans > 60 (> 60)
[2019-01-03] MEDS: *HR* Heparin 5,000 UNIT/ML VIAL SQ SCH ×2 (05:47→18:02)
--- NOTE | 2019-01-03 05:47 | Acute Care Surgery Event Note ---
Date of Encounter: 01/03/19 Time of Encounter: 05:00 Pt underwent ERCP for dilated CBD and mildly elevated T bili. Pt was found to have choledocholithiasis. Pt has no new complaints today. WBC wnl. CMP and lipase are pending. Discussed with the patient her diagnosis of cholecysitis and symptomatic cholelithiasis causing choledocholithiasis. Laparoscopic Cholecystectomy is recommended. Procedure for the surgery, risks and benefits are discussed in detail. Possible known complications for Laparoscopic Cholecystectomy are bleeding, infection, bile duct injury, bile leak, small intestine or stomach injury, stroke, DVT/PE, DC or . Pt understands these risks, which in this case are . Pt wishes to proceed with surgery as soon as possible. Informed consent is obtained. Pt condition is stable. Surgery is scheduled.
[2019-01-03] MEDS: Levothyroxine 25 MCG TABLET PO SCH (05:55)
[2019-01-03 06:18] LABS: Alanine Aminotransferase 113 Units/L (7-52); Albumin 3.2 g/dL (3.5-5.7); Albumin/Globulin Ratio 1.5 (1.1-2.2); Alkaline Phosphatase 138 Units/L (34-104); Aspartate Amino Transferase 71 Units/L (13-39); BUN/Creatinine Ratio 18 (6-26); Bilirubin,Total 0.7 mg/dL (0.3-1.0); Blood Urea Nitrogen 16 mg/dL (8-23); Calcium 9.2 mg/dL (8.6-10.3); Carbon Dioxide 28 mEq/L (23-29); Chloride 105 mEq/L (98-107); Globulin 2.1 g/dL (2.4-3.5); Glucose 100 mg/dL (70-105); Osmolality,Calculated 293 (280-300); Potassium 4.1 mEq/L (3.5-5.1); Sodium 141 mEq/L (136-145); Total Protein 5.3 g/dL (6.4-8.9); eGFR For African Americans > 60 (> 60); eGFR For Non-African Americans > 60 (> 60)
[2019-01-03] MEDS: *HR* OxyCODONE Immed Rel 5 MG TABLET PO PRN ×2 (06:45→21:12)
[2019-01-03] MEDS: Piperacillin/Tazobactam 3.375 GM in 0.9 % Sodium Chloride Mini Bag 100 ML IVPB SCH ×2 (08:18→23:35)
[2019-01-03] MEDS: Pantoprazole 40 MG VIAL IVP SCH (08:18)
--- NOTE | 2019-01-03 09:32 | Internal Med Progress Note ---
Hospitalist Progress Note - Encounter Date of Encounter: 01/03/19 Time of Encounter: 09:28 - Subjective Interval History: Patient seen and examined this morning at bedside. denies new complaints. no fever or chills nausea vomiting or diarrhea. Abdominal pain improved. - Exam Vitals: Temp Pulse Resp BP Pulse Ox 97.5 F L 96 16 169/87 94 01/03/19 06:44 01/03/19 06:44 01/03/19 06:44 01/03/19 06:44 01/03/19 06:44 Exam: General: In no acute distress. Respiratory exam: no accessory muscle use. Crackles at Rt lung base. Cardiovascular exam: RRR, +S1, +S2. no murmur, gallop, rubs. GI/Abdominal exam: minimal tendernes, normal bowel sounds, soft, no peritoneal signs. Extremities exam: no pedal edema, pulses palpable in b/l lower extremities. no calf tenderness. Hand joint deformities Neurological exam: CN II-XII intact, AO X3, no focal deficits. Skin exam: No skin rash - Assessment and Plan (1) CAD (coronary artery disease) Current Visit: Yes Status: Chronic (2) DVT prophylaxis Current Visit: Yes Status: Acute (3) Acute cholecystitis Current Visit: Yes Status: Acute (4) Acute cholangitis Current Visit: Yes Status: Acute (5) Sepsis Current Visit: Yes Status: Acute - Summary of Assessment and Plan Summary of Assessment and Plan: Assessment Acute Sepsis -resolved cholangitis/cholecystitis Chronic CAD Arthritis Plan - c/w empiric zosyn. ERCP with choledocholithiasis. s/p sphincterotomy and b alloon extraction. Hemodynamically stabe. f/u final blood cultures 1/2 positive for Ecoli. Repeat cultures. - c/w pain control . Plan for Lap cholecystectomy today. NPO - LFT stable - Heparin SQ for DVT. Internal Medicine: Result - Labs CBC & Chem 7: 01/03/19 03:40 01/03/19 05:49 Labs: Short CBC 01/03/19 Range/Units 03:40 WBC 3.1 L (4.3-11.1) K/mcL Hgb 12.0 D (11.5-15.4) g/dL Hct 37.4 (35.3-44.9) % Plt Count 119 L (140-400) K/mcL Neutrophils # 2.4 (1.6-8.9) K/mcL BMP 01/03/19 01/03/19 03:40 05:49 Sodium 139 141 Potassium 4.0 4.1 Chloride 108 H 105 Carbon Dioxide 26 28 BUN 16 16 Creatinine 0.85 0.89 Glucose 100 100 Calcium 9.0 9.2 Liver Function 01/03/19 Range/Units 05:49 Total Bilirubin 0.7 (0.3-1.0) mg/dL AST 71 H (13-39) Units/L ALT 113 H (7-52) Units/L Alkaline Phosphatase 138 H (34-104) Units/L Albumin 3.2 L (3.5-5.7) g/dL - ABG Interpretation ABG results: PT/INR, D-dimer PT 12.4 Seconds (9.4-12.1) H 01/01/19 07:05 - Impressions Impressions Cath/Invasive Procedure 01/02/19 14:45 IMPRESSION: ERCP images demonstrating choledocholithiasis. Please refer to the procedure report for further details. D/ / 01/02/2019 17:43:22 Elidu Santizo MD / [email or web address] Interpreting Provider: Eliud Santizo MD Consult Discharge Plan - Plan Instructions: Laparoscopic Cholecystectomy (DC) Additional Instructions: General Surgical Discharge Instructions 1. No pushing, pulling, or lifting greater than 15 lbs for 2-4 weeks (depending upon procedure-this will be determined at your follow-up visit). 2. You may remove your dressings and shower beginning today, but no tub baths, soaking, or swimming for 2 weeks. 3. No driving for two weeks unless otherwise specified and then you may resume driving when you are off narcotics and are safe to react in a car. 4. Take ibuprofen every 8 hours for discomfort. If this does not relieve discomfort, you may take the as needed Percocet. Eat a small snack with pain medication as this will help reduce the risk of nausea. Take narcotics as directed. Do not take more narcotics then directed and do not share your narcot ics with any other person. Do not drink alcohol while on narcotics. You can take the Zofran/ondansetron if needed for nausea or with a dose of narcotics to prevent nausea. 5. Take stool softeners (Colace) or a water based laxative (Miralax) while taking narcotics. You may hold for loose stools. 6. Report any fevers greater than 100.5F, increase abdominal discomfort, drainage that looks like pus, increased redness or pain at the surgical site, or any vomiting. 7. Report any pain in the calves, shortness of breath, or rapid heartbeat. 8. Follow-up in the office as directed. 9. If you were prescribed antibiotics, do not stop them without talking to your provider. Referrals: Gemma Willson CNP [Primary Care Provider] - Ryanne Harman CNP [Advanced Practice Nurse] - 01/13/19 2:00 pm (1) CAD (coronary artery disease) Qualifiers: Coronary Disease-Associated Artery/Lesion type: [place] artery [place] vs. transplanted heart: [place] heart Associated angina: without angina Qualified Code(s): I25.10 - Atherosclerotic heart disease of [place] coronary artery without angina pectoris (5) Sepsis Qualifiers: Sepsis type: sepsis due to unspecified organism Qualified Code(s): A41.9 - Sepsis, unspecified organism
[2019-01-03] MEDS ORDERED: Acetaminophen IV 1,000 MG/100 ML INFUS..BTL ONE (15:19)
[2019-01-03] MEDS ORDERED: *HR* Propofol 200 MG/20 ML VIAL IVP ONE (15:22)
[2019-01-03] MEDS ORDERED: *HR* FentaNYL (PF) 100 MCG/2 ML VIAL ONE ×2 (15:22→16:39)
[2019-01-03] MEDS ORDERED: Lidocaine HCL 4 ML Topical Solution (Laryng-O-Jet Kit Sterile Pak) TP ONE (15:22)
[2019-01-03] MEDS ORDERED: *HR* Rocuronium Bromide 50 MG/5 ML VIAL ONE (15:22)
[2019-01-03] MEDS ORDERED: Lidocaine -MPF 2% 2 ML VIAL ONE (15:22)
[2019-01-03] MEDS ORDERED: Bupivacaine/EPI 1:200k 0.5%PF 30 ML VIAL ONE (15:28)
--- NOTE | 2019-01-03 15:32 | Anesthesia Evaluation PreOp ---
Date of Encounter: 01/03/19 Time of Encounter: 15:29 - Past History Planned Operation: LAP CHOLECYSTECTOMY Medications and Allergies Atorvastatin [Lipitor] 40 mg PO HS 12/22/17 [History] Isosorbide MONOnitrate (24 HR) [Imdur] 90 mg PO QAM 12/22/17 [History] Levothyroxine [Synthroid] 25 mcg PO 0630 12/22/17 [History] Docusate [Colace] 100 mg PO BID 05/08/18 [History] C,E,Zinc,Copper 11/Gzdgu6m/Lut [Ocuvite Adult 50 Plus Softgel] 1 cap PO DAILY 01/02/19 [History] HYDROcodone/Acet 10/325 mg [[place] 10-325 mg] 2 tab PO TID PRN 01/02/19 [History] Nystatin POWDER [Nystop] 1 appl TP BID PRN 01/02/19 [History] Omeprazole [PriLOSEC] 20 mg PO QPM 01/02/19 [History] Temazepam [Restoril] 30 mg PO HS 01/02/19 [History] Allergy/AdvReac Type Severity Reaction Status Date / Time No Known Allergies Allergy Verified 01/02/19 14:09 Anesthesia Results - Labs 01/03/19 03:40 01/03/19 05:49 Anesthesia Exam Vital Signs/O2 Sat/Glucose, Most Recent Temp Pulse Resp BP Pulse Ox 98.4 F 65 16 147/69 95 01/03/19 11:41 01/03/19 11:41 01/03/19 11:41 01/03/19 11:41 01/03/19 11:41 Blood Glucose* 90 Weight: 85 KG - BMI 36 NPO (# of Hours): 8 Anes Supervising Prov Stmt: - Past History Cardiac History: HTN, Hyperlipidemia, Arrhythmia (aflutter), Cardiac Stent (x2), Pacemaker/ICD ([employer]tronic 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, 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 Other Medical History: Thyroid (hypo), Other (sepsis, cholangitis) Anesthesia History: No Prior Anesthetic Complications, Past Anesthesia (egd, colon, pacer) Alcohol Use: none Drug use: none Medications and Allergies Atorvastatin [Lipitor] 40 mg PO HS 12/22/17 [History] Isosorbide MONOnitrate (24 HR) [Imdur] 90 mg PO QAM 12/22/17 [History] Levothyroxine [Synthroid] 25 mcg PO 0630 12/22/17 [History] Docusate [Colace] 100 mg PO BID 05/08/18 [History] C,E,Zinc,Copper 11/Flmyx7x/Lut [Ocuvite Adult 50 Plus Softgel] 1 cap PO DAILY 01/02/19 [History] HYDROcodone/Acet 10/325 mg [[place] 10-325 mg] 2 tab PO TID PRN 01/02/19 [History] Nystatin POWDER [Nystop] 1 appl TP BID PRN 01/02/19 [History] Omeprazole [PriLOSEC] 20 mg PO QPM 01/02/19 [History] Temazepam [Restoril] 30 mg PO HS 01/02/19 [History] Allergy/AdvReac Type Severity Reaction Status Date / Time No Known Allergies Allergy Verified 01/02/19 14:09 - Meds/Allergy Pre-op Review Medications Reviewed: Yes Allergies Reviewed: Yes Beta Blockers on Current Med List: No Anesthesia Results - Labs - Imaging EKG: report reviewed (Interpretive Statements Atrial-ventricular dual-paced rhythm No further analysis attempted due to paced rhythm Electronically Signed On 01-01-2019 17:44:46 EDT by Jose Manuel Eric) Additional studies: 2017 TTE: Indications: Shortness of breath Impressions: Normal LV systolic function, LVEF 65%. Normal right ventricular size and function. A device lead was visualized in the right atrium and right ventricle. Mild-moderately dilated left atrium. Mildly dilated right atrium. Mild mitral regurgitation. Mild tricuspid regurgitation. Mild pulmonary hypertension. Estimated RVSP = 36 mmHg. Anesthesia Exam - HEENT Mallampati: II Teeth: Missing Anesthesia Assess/Plan ASA Score: 3 Anesthetic Plan: General Monitoring Plan: Standard Monitors Recovery Plan: PACU
[2019-01-03] MEDS ORDERED: *HR* Promethazine 25 MG/ML VIAL IVP PRN (15:33)
[2019-01-03] MEDS ORDERED: *HR* HYDROmorphone (PF) 1 MG/ML SYRINGE IVP PRN (15:33)
[2019-01-03] MEDS ORDERED: Ondansetron 4 MG/2 ML VIAL IVP ONE (15:33)
[2019-01-03] MEDS ORDERED: *HR* OxyCODONE Immed Rel 5 MG TABLET PO PRN (15:33)
[2019-01-03] MEDS ORDERED: Acetaminophen IV 1,000 MG/100 ML INFUS..BTL IVPB ONE (15:33)
[2019-01-03] MEDS ORDERED: Ondansetron 4 MG/2 ML VIAL ONE (15:54)
[2019-01-03] MEDS ORDERED: Dexamethasone 4 MG/ML VIAL ONE (15:54)
[2019-01-03] MEDS ORDERED: Neostigmine Methylsulfate 3 MG/3 ML SYRINGE ONE (16:32)
--- NOTE | 2019-01-03 16:43 | Operative Note ---
Date of procedure: 01/03/19 Pre-op diagnosis: Acute cholecystitis, common bile duct stones Post-op diagnosis: same Procedure: 1. Laparoscopic cholecystetomy. 2. Open repair of umbilical hernia. Anesthesia: JAYNE Surgeon: Chito Ba Was there an rehabilitation assistant present: No Estimated blood loss (cc): 30 Specimen: hernia sac, omentum, gallbladder and contents Condition: stable Disposition: PACU Procedure in Detail: Date of surgery: 01/03/19 After properly identifying the patient, the patient was brought to the operating room and placed in the supine position. After proper IV sedation was achieved followed by general endotracheal intubation, the patient's abdomen was prepped a nd draped in normal sterile fashion. A timeout was performed noting the patient's name and type of procedure to be performed. On examination the patient actually had evidence of an umbilical hernia defect. It appeared that the hernia extended for a length of approximately 4 cm. An 11 blade scalpel was used to make a super umbilical incision and dissection was carried from the subcutaneous tissue down to the rectus fascia. The hernia sac was entered using Bovie cauterization which demonstrated evidence of omental contents within the sac. A portion of the sac was dissected free with Bovie cauterization and the omentum was also transected with Bovie cauterization. A small portion of the omental stump was able to be reduced back within the abdomen and the hernia defect itself appeared to be approximately 2 cm in diameter. A 12 mm port was then placed through this opening/hernia defect and the abdomen was insufflated with carbon dioxide. A laparoscopic camera was placed through the port which showed no injury to the intra-abdominal organs upon entry. A subxiphoid 5 mm port and a right subcostal margin 5 mm port were then placed under direct camera visualization. The patient was placed in a reverse Trendelenburg position and the gallbladder was identified and retracted superiorly. The peritoneal covering overlying the infundibulum and cystic duct were bluntly dissected with a [place] dissector. This allowed for exposure of the cystic artery and the cystic duct which were both isolated, clipped laparoscopic clips, and incised laparoscopic scissors. The gallbladder was then carefully dissected away from the gallbladder fossa with Bovie cauterization while Bovie cauterization was used to maintain hemostasis. Once the gallbladder was dissected free it was removed from the abdomen via an Endobag. Reinspection of the right upper quadrant demonstrated some mild oozing which was hemostatically controlled with Bovie cauterization. The right upper quadrant was then copiously irrigated with normal saline solution until the effluent was clear. All ports are then removed from the abdomen after the abdomen was desufflated. The hernia defect was reapproximated with a [id number] 0 Vicryl suture. The subcutaneous tissue was then reapproximated with an interrupted 3-0 Vicryl suture and the epidermal and dermal layers for the remaining incisions were closed with 4-0 Monocryl sutures. Needle, sponge, and instrument counts were correct 2 and the incisions were covered with Steri-Strips and Band-Aids. The patient was aroused from IV sedation, extubated in the operating room without complication, and transported to the recovery room stable condition.
[2019-01-03] MEDS: *HR* Labetalol 20 MG/4 ML SYRINGE IVP PRN ×2 (17:06→17:13)
[2019-01-03] MEDS ORDERED: hydrALAZINE 10 MG TABLET PO PRN (17:43)
[2019-01-03] MEDS ORDERED: Naloxone 0.4 MG/ML INJ IVP PRN (17:43)
[2019-01-03] MEDS ORDERED: Temazepam 15 MG CAPSULE PO PRN (17:43)
[2019-01-03] MEDS ORDERED: Morphine Sulfate Oral CONC 10 MG/0.5 ML ORAL.SYG SL PRN (17:43)
[2019-01-03] MEDS ORDERED: Ondansetron 4 MG/2 ML VIAL IVP PRN (17:43)
--- NOTE | 2019-01-03 21:26 | Anesthesia Evaluation Post Op ---
Date of Encounter: 01/03/19 Time of Encounter: 21:24 - Vital Signs Vital Signs: Vital Signs/O2 Sat, Most Current Temp Pulse Resp BP Pulse Ox 99.0 F 61 16 156/81 98 01/03/19 20:40 01/03/19 20:40 01/03/19 20:40 01/03/19 20:40 01/03/19 20:40 - Lungs Lungs: Clear Ascult./Percussion - Airway Airway: Non-obstructed - Cardiovascular Baseline Rhythm - Mental Status Mental Status: Baseline Status - Pain Pain Scale: 0 Pain Scale used: Numeric (1 - 10) - Nausea Vomiting Nausea Vomiting: Not Present - Hydration Hydration: Ice chips - Discharge PostOp Status: Transfer Patient to floor
[2019-01-04 04:41] LABS: Basophils % 0.3 %; Hematocrit 38.3 % (35.3-44.9); Hemoglobin 12.4 g/dL (11.5-15.4); Immature Granulocytes % 0.3 % (0-4); Lymphocytes # 0.5 K/mcL (0.6-4.6); Lymphocytes % 13.7 %; Mean Corpuscular HGB Conc 32.4 g/dL (31.6-35.5); Mean Corpuscular Volume 92.7 fL (83.0-100.0); Mean Platelet Volume 10.3 fL (9.4-12.4); Monocytes # 0.4 K/mcL (0.0-1.3); Monocytes % 10.2 %; Neutrophils # 2.8 K/mcL (1.6-8.9); Platelet Count 128 K/mcL (140-400); Red Blood Count 4.13 M/mcL (3.82-4.97); Red Cell Distribution Width 12.7 % (11.5-14.5); Segmented Neutrophils % 75.5 %; White Blood Count 3.6 K/mcL (4.3-11.1)
[2019-01-04 05:01] LABS: BUN/Creatinine Ratio 20 (6-26); Blood Urea Nitrogen 16 mg/dL (8-23); Calcium 9.1 mg/dL (8.6-10.3); Carbon Dioxide 27 mEq/L (23-29); Chloride 106 mEq/L (98-107); Glucose 108 mg/dL (70-105); Osmolality,Calculated 290 (280-300); Potassium 3.8 mEq/L (3.5-5.1); Sodium 139 mEq/L (136-145); eGFR For African Americans > 60 (> 60); eGFR For Non-African Americans > 60 (> 60)
[2019-01-04] MEDS: *HR* OxyCODONE Immed Rel 5 MG TABLET PO PRN ×2 (05:24→11:50)
[2019-01-04] MEDS ORDERED: Levothyroxine 25 MCG TABLET PO SCH (06:30)
[2019-01-04] MEDS: *HR* Heparin 5,000 UNIT/ML VIAL SQ SCH (07:40)
--- NOTE | 2019-01-04 08:27 | AcuteCareSurgery Progress Note ---
Date of Encounter: 01/04/19 Time of Encounter: 08:25 - Assessment and Plan (1) Acute cholecystitis Current Visit: Yes Status: Acute Patient is POD1 from a laparoscopic cholecystectomy. From a surgical standpoint it is ok to discharge the patient home. No heavy lifting greater than 15lbs for two weeks. My staff will contact the patient early next week to setup a follow up appointment in two weeks. Subjective Patient reports: other (Patient admits to some mild abdominal sorness. Tolerated dinner. No nausea or vomiting.) Objective Vital Signs - Last 8 Hours Temp Pulse Resp BP Pulse Ox 01/04/19 06:50 98.6 F 66 17 160/79 95 01/04/19 04:08 98.1 F 84 18 169/97 91 Intake and Output 01/03/19 01/04/19 01/04/19 23:59 07:59 15:59 Intake Total 340 / 340 Output Total 30 / 30 Balance - 340 / 340 Intake: IV Fluids 100 / 100 Zosyn 3.375 GM In 0.9 % Sodium 100 / 100 Chloride (Mini-Bag +) 100 ML @ 25 mls/hr IVPB Q8HR [facility] Rx#: [id number] Oral 240 / 240 Output: Estimated Blood Loss 30 / 30 Other: # Voids 1 - General physical appearance well developed, well nourished, no distress - Abdomen Abdomen: Present: soft, tender (Mild perincisional tenderness. Mild ecchymosis around umbilicus. Band-Aids in place.) - Labs 01/04/19 03:45 01/04/19 03:45 Diabetes panel 01/04/19 Range/Units 03:45 Sodium 139 (136-145) mEq/L Potassium 3.8 (3.5-5.1) mEq/L Chloride 106 (98-107) mEq/L Carbon Dioxide 27 (23-29) mEq/L BUN 16 (8-23) mg/dL Creatinine 0.82 (0.60-1.20) mg/dL Glucose 108 H (70-105) mg/dL Calcium 9.1 (8.6-10.3) mg/dL Calcium panel 01/04/19 Range/Units 03:45 Calcium 9.1 (8.6-10.3) mg/dL Pituitary panel 01/04/19 Range/Units 03:45 Sodium 139 (136-145) mEq/L Potassium 3.8 (3.5-5.1) mEq/L Chloride 106 (98-107) mEq/L Carbon Dioxide 27 (23-29) mEq/L BUN 16 (8-23) mg/dL Creatinine 0.82 (0.60-1.20) mg/dL Glucose 108 H (70-105) mg/dL Calcium 9.1 (8.6-10.3) mg/dL Adrenal panel 01/04/19 Range/Units 03:45 Sodium 139 (136-145) mEq/L Potassium 3.8 (3.5-5.1) mEq/L Chloride 106 (98-107) mEq/L Carbon Dioxide 27 (23-29) mEq/L BUN 16 (8-23) mg/dL Creatinine 0.82 (0.60-1.20) mg/dL Glucose 108 H (70-105) mg/dL Calcium 9.1 (8.6-10.3) mg/dL Consult Discharge Plan - Plan Instructions: Laparoscopic Cholecystectomy (DC) Additional Instructions: General Surgical Discharge Instructions 1. No pushing, pulling, or lifting greater than 15 lbs for 2-4 weeks (depending upon procedure-this will be determined at your follow-up visit). 2. You may remove your dressings and shower beginning today, but no tub baths, soaking, or swimming for 2 weeks. 3. No driving for two weeks unless otherwise specified and then you may resume driving when you are off narcotics and are safe to react in a car. 4. Take ibuprofen every 8 hours for discomfort. If this does not relieve discomfort, you may take the as needed Percocet. Eat a small snack with pain medication as this will help reduce the risk of nausea. Take narcotics as directed. Do not take more narcotics then directed and do not share your narcotics with any other person. Do not drink alcohol while on narcotics. You can take the Zofran/ondansetron if needed for nausea or with a dose of narcotics to prevent nausea. 5. Take stool softeners (Colace) or a water based laxative (Miralax) while taking narcotics. You may hold for loose stools. 6. Report any fevers greater than 100.5F, increase abdominal discomfort, drainage that looks like pus, increased redness or pain at the surgical site, or any vomiting. 7. Report any pain in the calves, shortness of breath, or rapid heartbeat. 8. Follow-up in the office as directed. 9. If you were prescribed antibiotics, do not stop them without talking to your provider. Referrals: Gemma Willson CNP [Primary Care Provider] - Ryanne Harman CNP [Advanced Practice Nurse] - 01/13/19 2:00 pm
[2019-01-04] MEDS: Piperacillin/Tazobactam 3.375 GM in 0.9 % Sodium Chloride Mini Bag 100 ML IVPB SCH (08:29)
[2019-01-04] MEDS ORDERED: Pantoprazole 40 MG VIAL IVP SCH (09:00)
--- NOTE | 2019-01-04 13:09 | Discharge Summary ---
- NOTES TO OUTPATIENT PROVIDER Notes to Outpatient Provider: Patient will need to follow-up with surgery in 2 weeks. Had ERCP with choledocholithiasis and laparoscopic left cholecystectomy. Discharged to finish seven-day course of antibiotics for Escherichia coli bacteremia. Orders not resulted at time of discharge: Pending orders 12/31/18 23:31 Culture,Blood [BC] Stat 01/03/19 09:55 Culture,Blood [BC] Routine 01/03/19 16:40 Surgical Pathology [PTH] Routine Date of Encounter: 01/04/19 Time of Encounter: 13:16 - Discharge Diagnosis (1) CAD (coronary artery disease) Priority: Secondary Status: Chronic Qualifiers: Coronary Disease-Associated Artery/Lesion type: [place] artery [place] vs. transplanted heart: [place] heart Associated angina: without angina Qualified Code(s): I25.10 - Atherosclerotic heart disease of [place] coronary artery without angina pectoris (2) DVT prophylaxis Priority: Secondary Status: Acute (3) Acute cholecystitis Priority: Primary Status: Acute (4) Acute cholangitis Priority: Primary Status: Acute (5) Sepsis Priority: Primary Status: Acute Qualifiers: Sepsis type: sepsis due to unspecified organism Qualified Code(s): A41.9 - Sepsis, unspecified organism (6) Arthritis Priority: Secondary Status: Acute (7) Hypertension Priority: Secondary Status: Chronic Qualifiers: Hypertension type: essential hypertension Qualified Code(s): I10 - Essential (primary) hypertension Hospital course: Ms. Mendez is a 78 year old female past medical history of arthritis, hypertension, COPD came with abdominal pain. She was found to have elevated LFTs and signs of cholecystitis and cholangitis with CBD dilation on imaging. Gastroenterology and surgery were consulted. She was started on empiric antibiotics. Patient had ERCP on 01/02/19 with choledocholithiasis and had sphincterotomy and balloon extraction. Blood culture grew gram-negative felix. She was continued on Zosyn. She remained hemodynamically stabe. She underwent Lap cholecystectomy and open repair of umbilical hernia on 01/03. Patient had surgery without any complications. Blood culture finalized with Escherichia coli one out of 2 bottles and the second one not growing any organism but not finalized. Repeat blood cultures are negative. Patient without any fevers and is hemodynamically stable. She will be discharged to home to finish 3 more days of antibiotic. Prescription was given for pain medicine by surgery. She will need to follow up with surgery in 2 weeks. Discharge discussed with: patient, nurse - Time Spent with Patient Total time spent providing and/or coordinating discharge services: Time spent: Greater than 30 minutes (40) - Discharge Medications Prescriptions: New OxyCODONE/APAP 5/325 [Percocet 5/325 MG] 1 each PO Q6HR PRN 7 Days #28 tablet PRN Reason: Pain Cefdinir [Omnicef] 300 mg PO BID 3 Days #6 capsule Continued Levothyroxine [Synthroid] 25 mcg PO 0630 Isosorbide MONOnitrate (24 HR) [Imdur] 90 mg PO QAM Atorvastatin [Lipitor] 40 mg PO HS Docusate [Colace] 100 mg PO BID C,E,Zinc,Copper 11/Ozaqk3e/Lut [Ocuvite Adult 50 Plus Softgel] 1 cap PO DAILY HYDROcodone/Acet 10/325 mg [Thermal 10-325 mg] 2 tab PO TID PRN PRN Reason: Pain Nystatin POWDER [Nystop] 1 appl TP BID PRN PRN Reason: Rash Omeprazole [PriLOSEC] 20 mg PO QPM Temazepam [Restoril] 30 mg PO HS Home Medications: Atorvastatin [Lipitor] 40 mg PO HS 12/22/17 [History] Isosorbide MONOnitrate (24 HR) [Imdur] 90 mg PO QAM 12/22/17 [History] Levothyroxine [Synthroid] 25 mcg PO 0630 12/22/17 [History] Docusate [Colace] 100 mg PO BID 05/08/18 [History] C,E,Zinc,Copper 11/Tjzum4m/Lut [Ocuvite Adult 50 Plus Softgel] 1 cap PO DAILY 01/02/19 [History] HYDROcodone/Acet 10/325 mg [Thermal 10-325 mg] 2 tab PO TID PRN 01/02/19 [History] Nystatin POWDER [Nystop] 1 appl TP BID PRN 01/02/19 [History] Omeprazole [PriLOSEC] 20 mg PO QPM 01/02/19 [History] Temazepam [Restoril] 30 mg PO HS 01/02/19 [History] Cefdinir [Omnicef] 300 mg PO BID 3 Days #6 capsule 01/04/19 [Rx] OxyCODONE/APAP 5/325 [Percocet 5/325 MG] 1 each PO Q6HR PRN 7 Days #28 tablet 01/04/19 [Rx] Allergies/Adverse Reactions: Allergy/AdvReac Type Severity Reaction Status Date / Time No Known Allergies Allergy Verified 01/02/19 14:09 Date of admission: 01/01/19 04:53 Primary care physician: Gemma Willson CNP Consults: 01/01/19 05:21 Consult to Gastroenterology [CONS] Routine Consulting Provider: Gastroenterology Devorah Reason for Consult: cholangitis; likely needs ERCP. Call Completed: No Consult to Surgery [CONS] Routine Consulting Provider: Marvin Greenwood Reason for Consult: cholecystitis Call Completed: Yes Discharging clinician: Kadi Acevedo Mcdowell - Constitutional Vitals: Temp Pulse Resp BP Pulse Ox 98.4 F 64 17 168/79 98 01/04/19 10:48 01/04/19 10:48 01/04/19 10:48 01/04/19 10:48 01/04/19 10:48 Exam: General: In no acute distress. Respiratory exam: no accessory muscle use. CTAB Cardiovascular exam: RRR, +S1, +S2. no murmur, gallop, rubs. GI/Abdominal exam: minimal tenderness, normal bowel sounds, soft, no peritoneal signs. surgical scars with minimal tenderness. Extremities exam: no pedal edema, pulses palpable in b/l lower extremities. no calf tenderness. Hand joint deformities Neurological exam: CN II-XII intact, AO X3, no focal deficits. Skin exam: No skin rash - Patient Status Disposition: Home, Self-Care Condition: Fair - Discharge Instructions Instructions: Laparoscopic Cholecystectomy (DC) Follow Up With: Gemma Willson CNP [Primary Care Provider] - Ryanne Harman CNP [Advanced Practice Nurse] - 01/13/19 2:00 pm Additional Instructions: General Surgical Discharge Instructions 1. No pushing, pulling, or lifting greater than 15 lbs for 2-4 weeks (depending upon procedure-this will be determined at your follow-up visit). 2. You may remove your dressings and shower beginning today, but no tub baths, soaking, or swimming for 2 weeks. 3. No driving for two weeks unless otherwise specified and then you may resume driving when you are off narcotics and are safe to react in a car. 4. Take ibuprofen every 8 hours for discomfort. If this does not relieve discomfort, you may take the as needed Percocet. Eat a small snack with pain medication as this will help reduce the risk of nausea. Take narcotics as directed. Do not take more narcotics then directed and do not share your narcotics with any other person. Do not drink alcohol while on narcotics. You can take the Zofran/ondansetron if needed for nausea or with a dose of narcotics to prevent nausea. 5. Take stool softeners (Colace) or a water based laxative (Miralax) while taking narcotics. You may hold for loose stools. 6. Report any fevers greater than 100.5F, increase abdominal discomfort, drainage that looks like pus, increased redness or pain at the surgical site, or any vomiting. 7. Report any pain in the calves, shortness of breath, or rapid heartbeat. 8. Follow-up in the office as directed. 9. If you were prescribed antibiotics, do not stop them without talking to your provider.
[2019-01-04] MEDS ORDERED: Cefdinir 300 MG CAPSULE PO SCH (13:16)
[2019-01-04 14:27] VITALS: BP 137/78
== END 2019-01-04 15:08 | disposition home or self-care (01) ==
LOC: 3ANU 22:21 → EMEROOARM 22:21 → SUATTDRO 01-01 05:21 → 3ANU 01-01 06:30
PROVIDERS: ADMIT Internal Medicine Nephrology; ATTEND Internal Medicine

== ENCOUNTER 2020-12-23 20:46 | Observation (INO) ==
[2020-12-23] MEDS ORDERED: 0.9 % Sodium Chloride 1,000 ML IVC ONE (22:50)
[2020-12-23] MEDS ORDERED: Isovue-370 500 ML BOTTLE IVP ONE (22:50)
[2020-12-23] MEDS ORDERED: Ondansetron 4 MG/2 ML VIAL IVP ONE (22:50)
[2020-12-23 23:24] LABS: Basophils % 0.3 %; Eosinophils # 0.1 K/mcL (0.0-0.6); Eosinophils % 1.2 %; Hematocrit 39.9 % (35.3-44.9); Hemoglobin 12.3 g/dL (11.5-15.4); Immature Granulocytes % 0.9 % (0-4); Lymphocytes # 0.7 K/mcL (0.6-4.6); Lymphocytes % 12.6 %; Mean Corpuscular HGB Conc 30.8 g/dL (31.6-35.5); Mean Corpuscular Hemoglobin 27.7 pg (28.0-33.3); Mean Corpuscular Volume 89.9 fL (83.0-100.0); Mean Platelet Volume 9.4 fL (9.4-12.4); Monocytes # 0.6 K/mcL (0.0-1.3); Monocytes % 10.5 %; Neutrophils # 4.3 K/mcL (1.6-8.9); Platelet Count 208 K/mcL (140-400); Red Blood Count 4.44 M/mcL (3.82-4.97); Red Cell Distribution Width 12.4 % (11.5-14.5); Segmented Neutrophils % 74.5 %; White Blood Count 5.8 K/mcL (4.3-11.1)
[2020-12-23 23:49] LABS: Alanine Aminotransferase 13 Units/L (7-52); Albumin 3.6 g/dL (3.5-5.7); Albumin/Globulin Ratio 1.4 (1.1-2.2); Alkaline Phosphatase 161 Units/L (34-104); Aspartate Amino Transferase 27 Units/L (13-39); BUN/Creatinine Ratio 18 (6-26); Bilirubin,Direct 0.2 mg/dL (0.0-0.2); Bilirubin,Indirect 0.6 mg/dL (0.0-1.0); Bilirubin,Total 0.8 mg/dL (0.3-1.0); Blood Urea Nitrogen 13 mg/dL (8-23); Calcium 10.2 mg/dL (8.6-10.3); Carbon Dioxide 29 mEq/L (23-29); Chloride 103 mEq/L (98-107); Globulin 2.6 g/dL (2.4-3.5); Glucose 121 mg/dL (70-105); Osmolality,Calculated 291 (280-300); Potassium 4.2 mEq/L (3.5-5.1); Sodium 140 mEq/L (136-145); Total Protein 6.2 g/dL (6.4-8.9); Troponin I < 0.03 ng/mL (< 0.04); eGFR For African Americans > 60 (> 60); eGFR For Non-African Americans > 60 (> 60)
[2020-12-24] MEDS ORDERED: methylPREDNISolone 125 MG/2 ML VIAL IVP STA (00:48)
[2020-12-24] MEDS ORDERED: Azithromycin 250 MG TABLET PO SCH (01:00)
[2020-12-24] MEDS ORDERED: cefTRIAXone 1,000 MG in Water for inj. (sterile) 10 ML IVP SCH ×2 (01:00→04:00)
[2020-12-24] MEDS ORDERED: Ondansetron 4 MG/2 ML VIAL IVP ONE (04:00)
[2020-12-24] MEDS ORDERED: Acetaminophen 325 MG TABLET PO PRN (04:20)
[2020-12-24] MEDS ORDERED: Naloxone 0.4 MG/ML INJ IVP PRN (04:20)
[2020-12-24] MEDS ORDERED: Ondansetron 4 MG/2 ML VIAL IVP PRN (04:20)
[2020-12-24] MEDS ORDERED: Ipratropium/Albuterol Neb 3 ML IH PRN (04:23)
[2020-12-24] MEDS ORDERED: Gadolinium Contrast Agent (WT Based) IV PRN (04:28)
[2020-12-24] MEDS ORDERED: MethylPREDNISolone 40 MG/ML VIAL IVP SCH (08:00)
[2020-12-24 08:36] LABS: Adenovirus Not Detected (Not Detect); Coronavirus 229E Not Detected (Not Detect); Coronavirus HKU1 Not Detected (Not Detect); Coronavirus NL63 Not Detected (Not Detect); Coronavirus OC43 Not Detected (Not Detect); Human Metapneumovirus Not Detected (Not Detect); SARS-CoV-2 Not Detected (Not Detect)
[2020-12-24 08:37] LABS: Bordetella Pertussis Not Detected (Not Detect); Chlamydophila pneumoniae Not Detected (Not Detect); Human Rhinovirus/Enterovirus Not Detected (Not Detect); Influenza A Subtype 2009 H1 Not Detected (Not Detect); Influenza B Not Detected (Not Detect); Mycoplasma pneumoniae Not Detected (Not Detect); Parainfluenza Virus 1 Not Detected (Not Detect); Parainfluenza Virus 2 Not Detected (Not Detect); Parainfluenza Virus 3 Not Detected (Not Detect); Parainfluenza Virus 4 Not Detected (Not Detect); Respiratory Syncytial Virus Not Detected (Not Detect)
[2020-12-24] MEDS ORDERED: *HR* Enoxaparin 40 MG/0.4 ML SYRINGE SQ SCH (09:00)
[2020-12-24 11:55] LABS: Bilirubin,Urine Negative (Negative); Blood,Urine Negative (Negative); Clarity,Urine Clear (Clear); Color,Urine Light-Yellow (Yellow); Glucose,Urine (UA) Normal (Normal); Ketones,Urine Trace mg/dL (Negative); Leukocyte Esterase,Urine Negative (Negative); Nitrite,Urine Negative (Negative); PH,Urine 7.5 pH Units (5.0-8.0); Protein,Urine Trace mg/dL (Neg-Trace); Specific Gravity,Urine > 1.030 (1.010-1.025); Urobilinogen,Urine Normal (Normal)
[2020-12-24 12:06] VITALS: BP 165/82; PULSE 76; TEMP 98.5; O2SAT 93
[2020-12-24] MEDS ORDERED: Azithromycin 500 MG in 0.9 % Sodium Chloride 250 ML IVPB SCH (18:00)
[2020-12-24] MEDS ORDERED: cefTRIAXone 1,000 MG in 0.9 % Sodium Chloride Mini Bag 100 ML IVPB SCH (18:00)
== END 2020-12-24 20:06 | disposition home or self-care (01) ==
LOC: CDU 20:46 → EMEROOARM 20:46 → SUATTDRO 12-24 04:24 → CDU 12-24 06:46 → 3ANU 12-24 17:43
PROVIDERS: ADMIT Internal Medicine; ATTEND Student in an Organized Health Care Education/Training Program

== ENCOUNTER 2021-02-14 14:04 | Observation (INO) ==
[2021-02-14] MEDS ORDERED: methylPREDNISolone 125 MG/2 ML VIAL IVP ONE (14:29)
[2021-02-14] MEDS ORDERED: Ipratropium/Albuterol Neb 3 ML IH ONE (14:29)
[2021-02-14 15:31] LABS: Basophils % 0.3 %; Eosinophils # 0.1 K/mcL (0.0-0.6); Eosinophils % 1.1 %; Immature Granulocytes % 1.1 % (0-4); Lymphocytes # 0.9 K/mcL (0.6-4.6); Lymphocytes % 14.3 %; Mean Corpuscular HGB Conc 30.6 g/dL (31.6-35.5); Mean Corpuscular Hemoglobin 26.7 pg (28.0-33.3); Mean Corpuscular Volume 87.4 fL (83.0-100.0); Mean Platelet Volume 9.8 fL (9.4-12.4); Monocytes # 0.5 K/mcL (0.0-1.3); Monocytes % 7.1 %; Neutrophils # 4.8 K/mcL (1.6-8.9); Platelet Count 189 K/mcL (140-400); Red Blood Count 4.12 M/mcL (3.82-4.97); Segmented Neutrophils % 76.1 %; White Blood Count 6.3 K/mcL (4.3-11.1)
[2021-02-14 15:57] LABS: Alanine Aminotransferase 16 Units/L (7-52); Albumin 2.9 g/dL (3.5-5.7); Albumin/Globulin Ratio 1.1 (1.1-2.2); Alkaline Phosphatase 263 Units/L (34-104); Aspartate Amino Transferase 29 Units/L (13-39); BUN/Creatinine Ratio 19 (6-26); Bilirubin,Total 0.9 mg/dL (0.3-1.0); Blood Urea Nitrogen 15 mg/dL (8-23); Calcium 10.9 mg/dL (8.6-10.3); Carbon Dioxide 26 mEq/L (23-29); Chloride 103 mEq/L (98-107); Globulin 2.7 g/dL (2.4-3.5); Glucose 146 mg/dL (70-105); Osmolality,Calculated 287 (280-300); Potassium 3.8 mEq/L (3.5-5.1); Sodium 137 mEq/L (136-145); Total Protein 5.6 g/dL (6.4-8.9); Troponin I < 0.03 ng/mL (< 0.04); eGFR For African Americans > 60 (> 60); eGFR For Non-African Americans > 60 (> 60)
[2021-02-14] MEDS ORDERED: Isovue-370 500 ML BOTTLE IVP ONE (16:15)
[2021-02-14] MEDS ORDERED: *HR* Heparin 5,000 UNIT/ML VIAL IVP PRN ×2 (17:46)
[2021-02-14] MEDS ORDERED: *HR* Heparin 5,000 UNIT/ML VIAL IVP ONE (17:46)
[2021-02-14] MEDS ORDERED: Heparin 25,000UNIT/250ML 1/2NS 25,000 UNIT/250 ML IV.SOLN IVC SCH (18:00)
[2021-02-14] MEDS ORDERED: Ondansetron 4 MG/2 ML VIAL IVP PRN (18:37)
[2021-02-14] MEDS ORDERED: Melatonin 3 MG TABLET PO PRN (18:37)
[2021-02-14] MEDS ORDERED: Naloxone 0.4 MG/ML INJ IVP PRN (18:37)
[2021-02-14] MEDS ORDERED: 0.9 % Sodium Chloride 1,000 ML IVC SCH (18:45)
[2021-02-14 19:16] LABS: Hematocrit 34.8 % (35.3-44.9); Hemoglobin 10.9 g/dL (11.5-15.4); Mean Corpuscular HGB Conc 31.3 g/dL (31.6-35.5); Mean Corpuscular Hemoglobin 27.5 pg (28.0-33.3); Mean Corpuscular Volume 87.7 fL (83.0-100.0); Mean Platelet Volume 9.9 fL (9.4-12.4); Platelet Count 198 K/mcL (140-400); Red Blood Count 3.97 M/mcL (3.82-4.97); Red Cell Distribution Width 15.8 % (11.5-14.5); White Blood Count 5.7 K/mcL (4.3-11.1)
[2021-02-14 19:25] LABS: INR 1.1; Prothrombin Time 13.2 Seconds (9.4-12.1)
[2021-02-14 19:26] LABS: Heparin anti-factor XA UFH < 0.04 IU/mL (0.30-0.70)
[2021-02-14 19:27] LABS: Activated Partial Thrombo Time 27.4 Seconds (26.0-36.0)
[2021-02-14] MEDS: *HR* Enoxaparin 80 MG/0.8 ML SYRINGE SQ SCH (21:08)
[2021-02-14] MEDS: *HR* OxyCODONE ER (12 HR) 20 MG TABLET PO SCH (21:08)
[2021-02-15] MEDS: *HR* HYDROcodone/Acet 10/325 mg TABLET PO PRN ×2 (00:17→11:08)
[2021-02-15] MEDS: *HR* OxyCODONE ER (12 HR) 20 MG TABLET PO SCH (06:07)
[2021-02-15 06:24] LABS: Hematocrit 33.3 % (35.3-44.9); Hemoglobin 10.1 g/dL (11.5-15.4); Immature Granulocytes % 1.2 % (0-4); Lymphocytes # 0.7 K/mcL (0.6-4.6); Mean Corpuscular HGB Conc 30.3 g/dL (31.6-35.5); Mean Corpuscular Hemoglobin 26.7 pg (28.0-33.3); Mean Corpuscular Volume 88.1 fL (83.0-100.0); Mean Platelet Volume 9.4 fL (9.4-12.4); Monocytes # 0.3 K/mcL (0.0-1.3); Monocytes % 4.9 %; Neutrophils # 4.1 K/mcL (1.6-8.9); Platelet Count 179 K/mcL (140-400); Red Blood Count 3.78 M/mcL (3.82-4.97); Red Cell Distribution Width 15.9 % (11.5-14.5); Segmented Neutrophils % 79.9 %; White Blood Count 5.2 K/mcL (4.3-11.1)
[2021-02-15 06:25] LABS: BUN/Creatinine Ratio 19 (6-26); Blood Urea Nitrogen 14 mg/dL (8-23); Calcium 10.9 mg/dL (8.6-10.3); Carbon Dioxide 27 mEq/L (23-29); Chloride 103 mEq/L (98-107); Glucose 136 mg/dL (70-105); Osmolality,Calculated 285 (280-300); Phosphorous 3.2 mg/dL (2.7-4.5); Potassium 4.2 mEq/L (3.5-5.1); Sodium 136 mEq/L (136-145); eGFR For African Americans > 60 (> 60); eGFR For Non-African Americans > 60 (> 60)
[2021-02-15] MEDS: *HR* Enoxaparin 80 MG/0.8 ML SYRINGE SQ SCH (06:55)
[2021-02-15] MEDS ORDERED: Perflutren Lipid Microsphere 1.3 ML in 0.9 % Sodium Chloride 8.7 ML IVP PRN (13:51)
[2021-02-15 14:31] VITALS: BP 123/74; PULSE 62; TEMP 98.2; O2SAT 89
== END 2021-02-15 18:56 | disposition home or self-care (01) ==
LOC: EMEROOARM 14:04 → 3ANU 14:04
PROVIDERS: ADMIT Internal Medicine; ATTEND Internal Medicine